=== PATIENT | female | born 1940 | race Caucasian/White ===

== ENCOUNTER 2019-04-30 15:47 | Inpatient (IN) | payer OTHER | END 2019-05-10 19:17 | LOC: JICU 05-01 01:20 → J2W 05-05 16:09 → JER 15:47 → JERBED 19:44 ==

== ENCOUNTER 2019-07-08 21:35 | Inpatient (IN) | payer OTHER ==
--- NOTE | 2019-07-08 21:50 | PDOC ---
History of Present Illness <Ena Conway - Last Filed: 07/09/19 00:51> - History of Present Illness Initial Comments: The pt is a 79F w/ a history of multiple myeloma, HFrEF (30-35), HTN, COPD (2L NC), HLD, a-flutter (eliquis) who presents for evaluation of cough and hypoxia. The pt reports one day of productive cough with development of streaks of blood in her sputum. The cough started yesterday and the blood streaks started today. EMS noted the pt was hypoxic on scene to the 80s on 2L NC. The pt denies fevers/chills, chest pain, trouble breathing, dizziness, N/V/C/D, dysuria, hematuria, or rash. Denies sick contacts. 07/08/19 23:04 <Kike Diane - Last Filed: 07/09/19 01:07> - General Stated Complaint: DIFFICULTY BREATHING Past History <Ena Conway - Last Filed: 07/09/19 00:51> - Past Medical History Anemia: No Asthma: No Cancer: Yes (endometrial cancer) CVA: No COPD: No CHF: No Dementia: No Diabetes: No GI Disorders: No Disorders: No HTN: Yes Hypercholesterolemia: Yes Liver Disease: No Psychiatric Problems: Yes (anxiety, depressive episodes) Seizures: No Thyroid Disease: No - Surgical History Cholecystectomy: Yes - Immunization History Immunization Up to Date: No - Psycho Social/Smoking Cessation Hx Smoking History: Never smoked Have you smoked in the past 12 months: No Hx Alcohol Use: No Drug/Substance Use Hx: No Substance Use Type: None <Kike Diane - Last Filed: 07/09/19 01:07> - Past Medical History Allergies/Adverse Reactions: Allergies Allergy/AdvReac Type Severity Reaction Status Date / Time escitalopram [From Lexapro] Allergy Verified 07/09/19 00:01 Home Medications: Ambulatory Orders Cyanocobalamin [Vitamin B12 -] 1,000 mcg PO DAILY 04/30/19 Metoprolol Tartrate 25 mg PO BID 04/30/19 Mirtazapine 22.5 mg PO DAILY 04/30/19 Omeprazole Magnesium [Prilosec] 20 mg PO DAILY 04/30/19 Sennosides [Senna -] 2 tab PO HS 04/30/19 Simvastatin 10 mg PO DAILY 04/30/19 Albuterol 2.5/Ipratropium 0.5 [Duoneb -] 1 amp NEB RTID amp 05/10/19 Apixaban [Eliquis -] 2.5 mg PO BID tablet 05/10/19 Carvedilol [Coreg -] 6.25 mg PO BID tablet 05/10/19 Calcium Carbonate/Vitamin D3 [Eq Calcium 500 + Vit D 400 Tab] 1 each PO DAILY Cholecalciferol (Vitamin D3) [Vitamin D3 -] 1,000 unit PO DAILY 07/09/19 Docusate Sodium [Docusate 100 mg] 100 mg PO DAILY 07/09/19 Furosemide [Lasix -] 40 mg PO Q2D@1000 07/09/19 Multivitamins [Tab-A-Vit -] 1 tab PO DAILY 07/09/19 Salmeterol Xinafoate [Serevent Diskus] 50 mcg IH BID 07/09/19 Valacyclovir HCl [Valtrex -] 500 mg PO DAILY 07/09/19 Review of Systems - Review of Systems Able to Perform ROS?: Yes Comments:: GENERAL/CONSTITUTIONAL: No fever or chills. No weakness HEAD, EYES, EARS, NOSE AND THROAT: No change in vision. No change in hearing. No sore throat CARDIOVASCULAR: No chest pain or shortness of breath RESPIRATORY: + cough, hemoptysis GASTROINTESTINAL: No nausea, vomiting, diarrhea or constipation GENITOURINARY: No dysuria, frequency, or change in urination MUSCULOSKELETAL: No joint or muscle swelling or pain. No neck or back pain SKIN: No rash NEUROLOGIC: No headache, vertigo, loss of consciousness, or change in strength/ sensation ENDOCRINE: No increased thirst. No abnormal weight change HEMATOLOGIC/LYMPHATIC: +eliquis ALLERGIC/IMMUNOLOGIC: No hives or skin allergy 07/08/19 21:50 Is the patient limited Nepali proficient: No <Kike Diane - Last Filed: 07/09/19 01:07> *Physical Exam - Vital Signs Last Vital Signs Temp Pulse Resp BP Pulse Ox 98.7 F 64 28 H 74/40 L 92 L 07/08/19 21:45 07/08/19 21:45 07/08/19 21:45 07/08/19 21:45 07/08/19 21:45 <Ena Conway - Last Filed: 07/09/19 00:51> - Vital Signs 07/08/19 23:06 - Physical Exam Comments: GENERAL: Awake, alert, and oriented to person/place/time, in no acute distress HEAD: No signs of trauma, normocephalic, atraumatic EYES: PERRLA, EOMI, sclera anicteric, conjunctiva clear ENT: Hearing grossly normal, nares patent, oropharynx clear without exudates. Moist mucosa LUNGS: b/l crackles, decreased breath sounds at bases (R>L) HEART: Regular rate and rhythm, normal S1 and S2, no murmurs appreciated, peripheral pulses normal and equal bilaterally ABDOMEN: Soft, nontender, normoactive bowel sounds. No guarding, no rebound EXTREMITIES: Normal inspection, Normal range of motion, 1+ BLE edema to distal rider NEUROLOGICAL: Cranial nerves II through XII grossly intact. Normal speech, no focal sensorimotor deficits SKIN: Warm, Dry 07/08/19 21:50 <Kike Diane - Last Filed: 07/09/19 01:07> Procedures - Central Line Central Line Lumen: triple Central Line Position: femoral (L) Anesthesia: 1% Lidocaine Amount of anesthesia (ccs): 3 Complications: none Post Central Line Insertion: sutured, good blood return <Ena Conway - Last Filed: 07/09/19 00:51> ED Treatment Course - LABORATORY CBC & Chemistry Diagram: 07/08/19 23:04 07/08/19 23:04 - ADDITIONAL ORDERS Additional order review: Laboratory Results 07/08/19 07/08/19 07/08/19 23:04 23:04 23:04 Sodium Potassium Chloride Carbon Dioxide Anion Gap BUN Creatinine Est GFR (CKD-EPI)AfAm Est GFR (CKD-EPI)NonAf Random Glucose Lactic Acid 0.8 Calcium Magnesium Total Bilirubin AST ALT Alkaline Phosphatase Troponin I Cancelled B-Natriuretic Peptide 3737.4 H Total Protein Albumin 07/08/19 23:04 Sodium 136 Potassium 4.5 Chloride 100 Carbon Dioxide 32 Anion Gap 3 L BUN 25.8 H Creatinine 1.5 H Est GFR (CKD-EPI)AfAm 37.48 Est GFR (CKD-EPI)NonAf 32.34 Random Glucose 111 H Lactic Acid Calcium 7.8 L Magnesium 2.4 Total Bilirubin 1.2 H AST 44 H ALT 24 Alkaline Phosphatase 181 H Troponin I < 0.02 B-Natriuretic Peptide Total Protein 6.5 Albumin 2.0 L 07/08/19 23:04 RBC 2.56 L MCV 109.8 H D MCHC 31.2 L RDW 19.2 H MPV 10.5 D Neutrophils % 70.7 Lymphocytes % 9.1 D Monocytes % 18.1 H Eosinophils % 0.8 D Basophils % 1.3 D - Medications Given in the ED: ED Medications Discontinued Medications Generic Name Dose Route Start Last Admin Trade Name Freq PRN Reason Stop Dose Admin Calcium Gluconate 1,000 mg 07/08/19 22:39 07/08/19 23:36 Calcium Gluconate 10% - IVPB 07/08/19 22:40 Not Given ONCE ONE Piperacillin Sod/Tazobactam 100 mls @ 200 mls/hr 07/08/19 23:03 07/08/19 23: 36 Sod 4.5 gm/ Dextrose IVPB 07/08/19 23:32 200 mls/hr ONCE ONE Administration Protocol Sodium Chloride 250 ml 07/08/19 23:09 07/08/19 23:36 Normal Saline - IV 07/08/19 23:10 250 ml ONCE ONE Administration <Ena Conway - Last Filed: 07/09/19 00:51> - LABORATORY CBC & Chemistry Diagram: 07/08/19 23:04 07/08/19 23:04 <Kike Diane - Last Filed: 07/09/19 01:07> Medical Decision Making - Critical Care Time Total Critical Care Time (minutes): 45 Critical Care Statement: The care of this patient involved high complexity decision making to prevent further life threatening deterioration of the patient 's condition and/or to evaluate & treat vital organ system(s) failure or risk of failure. - Medical Decision Making The pt is a 79F w/ a history of multiple myeloma, HFrEF (30-35), HTN, COPD (2L NC), HLD, on eliquis who presents for evaluation of cough and hypoxia concerning for PNA vs HF exacerbation ED Course Labs sent ECG CXR NS 250mL IV once Vanc/Zosyn for HCAP CXR w/ b/l pulmonary vascular congestion and RLL consolidation vs effusion POCUS w/ b/l b-lines, small R effusion with mild hepatization of RLL 07/08/19 23:07 ECG w/ NSR; HR 64; QTc 425; narrow QRS; no axis deviation; no IRINEO Leukopenia to 2.8, likely partially 2/2 hemodilution given lower Hgb and Plt Lytes unremarkable Lactate neg Cr near baseline LFTs unremarkable Mg wnl Trop I neg BNP 3737 Pt hypotensive to 60s/40s s/p 250cc bolus R femoral CVC placed Norepinephrine started Pt to be admitted to ICU Signed out to [place] Admitting 07/09/19 01:03 <Kike Diane - Last Filed: 07/09/19 01:07> Discharge <Ena Conway - Last Filed: 07/09/19 00:51> - Discharge Information Problems reviewed: Yes - Admission Yes <Kike Diane - Last Filed: 07/09/19 01:07> - Discharge Information Clinical Impression/Diagnosis: Pneumonia Qualifiers: Pneumonia type: due to unspecified organism Laterality: right Lung location: lower lobe of lung Qualified Code(s): J18.9 - Pneumonia, unspecified organism CHF (congestive heart failure) Qualifiers: Heart failure type: unspecified Heart failure chronicity: chronic Qualified Code(s): I50.9 - Heart failure, unspecified Hypotension Qualifiers: Hypotension type: unspecified hypotension type Qualified Code(s): I95.9 - Hypotension, unspecified Condition: Critical
[2019-07-08] MEDS ORDERED: CALCIUM GLUCONATE 10% - 1,000 MG/10 ML VIAL IVPB ONE (22:39)
[2019-07-08] MEDS ORDERED: CALCIUM GLUCONATE 10% - 1,000 MG/10 ML VIAL ONE (22:44)
[2019-07-08] MEDS ORDERED: PIPERACILLIN/TAZOB 4.5 GM 4.5 GM in DEXTROSE 5%-WATER 100 ML IVPB ONE (23:03)
[2019-07-08] MEDS ORDERED: VANCOMYCIN 1,000 MG in DEXTROSE 5%-WATER - 250 ML IVPB ONE (23:03)
[2019-07-08] MEDS ORDERED: SODIUM CHLORIDE 0.9% 500 ML INFUS.BAG IV ONE (23:09)
[2019-07-08] MEDS ORDERED: PIPERACILLIN/TAZOB 4.5 GM 4.5 GM/100 ML BAG IVPB ONE (23:20)
[2019-07-08] MEDS ORDERED: VANCOMYCIN 1 GRAM (PRE-DOCKED) 1,000 MG/250 ML BAG IVPB ONE (23:20)
[2019-07-08 23:29] LABS: BASO % 1.3 % (0-2.0); EOS % 0.8 % (0-4.5); HEMATOCRIT 28.1 % (32.4-45.2); HEMOGLOBIN 8.8 GM/dL (10.7-15.3); LYMPH % 9.1 % (8-40); MCH 34.3 pg (25.7-33.7); MCHC 31.2 g/dl (32.0-36.0); MEAN CELL VOLUME 109.8 fl (80-96); MEAN PLT VOLUME 10.5 fl (7.5-11.1); MONO % 18.1 % (3.8-10.2); NEUT % 70.7 % (42.8-82.8); PLATELET COUNT 101 K/MM3 (134-434); RBC 2.56 M/mm3 (3.60-5.2); RDW 19.2 % (11.6-15.6); WHITE BLOOD COUNT 2.8 K/mm3 (4.0-10.0)
[2019-07-09 00:12] LABS: ALK PHOS 181 U/L (45-117); ANION GAP 3 MMOL/L (8-16); BILIRUBIN,TOTAL 1.2 mg/dL (0.2-1); BLOOD UREA NITROGEN 25.8 mg/dL (7-18); CALCIUM 7.8 mg/dL (8.5-10.1); CHLORIDE 100 mmol/L (98-107); CO2 32 mmol/L (21-32); CREATININE 1.5 mg/dL (0.55-1.3); GLUCOSE,RANDOM 111 mg/dL (74-106); MAGNESIUM 2.4 mg/dL (1.8-2.4); POTASSIUM 4.5 mmol/L (3.5-5.1); SGOT/AST 44 U/L (15-37); SGPT/ALT 24 U/L (13-61); SODIUM 136 mmol/L (136-145); TOT PROT 6.5 g/dl (6.4-8.2)
[2019-07-09 00:45] LABS: ANISOCYTOSIS 1+; MACROCYTOSIS 1+; PLATELET ESTIMATE SLT DECREASE
--- NOTE | 2019-07-09 01:05 | PN ---
Teaching Attending Note Name of Resident: Petra Celaya ATTENDING PHYSICIAN STATEMENT I saw and evaluated the patient. I reviewed the resident's note and discussed the case with the resident. I agree with the resident's findings and plan as documented. SUBJECTIVE: Critically ill 79yo Woman w/ a history of multiple myeloma-Last chemotherapy treatment was reported to be 07/01., chf, HTN, COPD (2L NC), HLD, a-flutter ( eliquis) Presented complaining of cough and shortness of breath. She had 1 day of productive cough and noted to have development of streaks of blood in her sputum. Patient was brought in by EMS, who noticed that she was hypoxic at the scene saturating in the 80s on 2 L nasal cannula. No mention of sick contacts or recent travels. In the ER patient was noted to be hypotensive and central line was placed and started on norepinephrine in anticipation to be transferred to ICU. OBJECTIVE: Last Vital Signs Temp Pulse Resp BP Pulse Ox 98.7 F 64 28 H 74/40 L 92 L 07/08/19 21:45 07/08/19 21:45 07/08/19 21:45 07/08/19 21:45 07/08/19 21:45 GENERAL: Well developed, well nourished. Awake and alert. No acute distress. HEENT: Normocephalic, atraumatic. PERRLA, EOMI. No conjunctival pallor. Sclera are non- icteric. Moist mucous membranes. Oropharynx is clear. NECK: Supple. Full ROM. No JVD. Carotid pulses 2+ and symmetric, without bruits. No thyromegaly. No lymphadenopathy. CARDIOVASCULAR: Regular rate and rhythm. No murmurs, rubs, or gallops. Distal pulses are 2+ and symmetric. PULMONARY: Left base crackles appreciated, Bilateral air entry ABDOMINAL: Soft. Non-tender. Non-distended. No rebound or guarding. No organomegaly. Normoactive bowel sounds. MUSCULOSKELETAL Normal range of motion at all joints. No bony deformities or tenderness. No CVA tenderness. EXTREMITIES: No cyanosis. No clubbing. No edema. No calf tenderness. SKIN: Warm and dry. Normal capillary refill. No rashes. No jaundice. PSYCHIATRIC: Cooperative. Good eye contact. Appropriate mood and affect. Abnormal Lab Results 07/08/19 07/08/19 07/08/19 23:04 23:04 23:04 WBC 2.8 L RBC 2.56 L Hgb 8.8 L Hct 28.1 L MCV 109.8 H D MCH 34.3 H MCHC 31.2 L RDW 19.2 H Plt Count 101 L D Monocytes % 18.1 H Nucleated RBC % 1 H Anion Gap 3 L BUN 25.8 H Creatinine 1.5 H Random Glucose 111 H Calcium 7.8 L Total Bilirubin 1.2 H AST 44 H Alkaline Phosphatase 181 H B-Natriuretic Peptide 3737.4 H Albumin 2.0 L Imaging studies reviewed Chest x-ray reviewed ASSESSMENT AND PLAN: Severe Sepsis secondary to community-acquired pneumonia Requiring IV pressor support With respiratory failure. Lactate remained normal. Respiratory failure and hypotension suggestive of severe disease however as per patient's lead front end developer , her pressure has always been on the low side ever since she was prescribed carvedilol and Entresto on her prior admission. #Multiple myeloma #Pancytopenia with profound leukopenia, microcytic anemia and thrombocytopenia. Leukopenia and thrombocytopenia are noted to be new findings. Unclear etiology , might be secondary to her underlying multiple myeloma versus acute sepsis resulting in drop in cell counts #CKDthought to be stable at this time. Thought to be possibly related to underlying multiple myeloma #Hypoalbuminemia Admit to MedSurg Ceftriaxone 1 g every 24 hours Zithromax 500 mg IV every 24 hours Maintained on norepinephrine at this time Attempt to wean off of norepinephrine Avoid antihypertensive agents at this time Would consider to revise her Antihypertensive medications prior to discharge given her current hypotension Sputum culture Blood culture Urine Legionella antigen Supplemental oxygen via nasal cannula Send UA and urine culture Arterial blood gas if desaturating Abdominal ultrasound to assess for splenomegaly and acute hepatobiliary process Monitor CBC closely Cardiac echo Monitor I's and O's Fluid restriction
--- NOTE | 2019-07-09 01:57 | CONSULT ---
Consult Consult Specialty:: ICU - History of Present Illness History of Present Illness: 79F with a PMH of multiple myeloma, HFrEF (30-35), HTN, COPD (2L NC), HLD, a- flutter (eliquis) who presented to the ER after her aide noticed she had slightly increased WOB. Pt states that she feels in her normal state of health and denies fever, chills, nausea, vomiting, CP, SOB, numbness, tingling, weakness, lightheadedness, and palpitations. ED Course notable for: - CXR showing R sided infiltrate with effusino - POCUS showing B-lines in R lobe and hepatization - BP's 70's/50's - Increased demand for NC O2 - History Source History Provided By: Patient, Caregiver - Past Medical History Cardio/Vascular: Yes: HTN, Hyperlipdemia Pulmonary: Yes: COPD Renal/: Yes: Cancer (Multiple myoloma) Psych: Yes: Anxiety - Past Surgical History Past Surgical History: Yes: Cholecystectomy, Hysterectomy - Alcohol/Substance Use Hx Alcohol Use: No History of Substance Use: reports: None - Smoking History Smoking history: Never smoked Have you smoked in the past 12 months: No - Social History 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 her) Home Medications - Allergies Allergies/Adverse Reactions: Allergies Allergy/AdvReac Type Severity Reaction Status Date / Time escitalopram [From Lexapro] Allergy Verified 07/09/19 00:01 - Home Medications Home Medications: Ambulatory Orders Cyanocobalamin [Vitamin B12 -] 1,000 mcg PO DAILY 04/30/19 Metoprolol Tartrate 25 mg PO BID 04/30/19 Mirtazapine 22.5 mg PO DAILY 04/30/19 Omeprazole Magnesium [Prilosec] 20 mg PO DAILY 04/30/19 Sennosides [Senna -] 2 tab PO HS 04/30/19 Simvastatin 10 mg PO DAILY 04/30/19 Albuterol 2.5/Ipratropium 0.5 [Duoneb -] 1 amp NEB RTID amp 05/10/19 Apixaban [Eliquis -] 2.5 mg PO BID tablet 05/10/19 Carvedilol [Coreg -] 6.25 mg PO BID tablet 05/10/19 Calcium Carbonate/Vitamin D3 [Eq Calcium 500 + Vit D 400 Tab] 1 each PO DAILY Cholecalciferol (Vitamin D3) [Vitamin D3 -] 1,000 unit PO DAILY 07/09/19 Docusate Sodium [Docusate 100 mg] 100 mg PO DAILY 07/09/19 Furosemide [Lasix -] 40 mg PO Q2D@1000 07/09/19 Multivitamins [Tab-A-Vit -] 1 tab PO DAILY 07/09/19 Salmeterol Xinafoate [Serevent Diskus] 50 mcg IH BID 07/09/19 Valacyclovir HCl [Valtrex -] 500 mg PO DAILY 07/09/19 Review of Systems - Review of Systems Constitutional: denies: Chills, Fever, Loss of Appetite Eyes: denies: Blurred Vision, Double Vision HENT: denies: Nasal Congestion, Throat Pain Cardiovascular: denies: Chest Pain, Edema, Shortness of Breath Respiratory: denies: Cough, Exercise Intolerance, SOB Gastrointestinal: denies: Abdominal Pain, Nausea, Vomiting Genitourinary: denies: Burning, Dysuria Musculoskeletal: denies: Back Pain Neurological: denies: Headache, Numbness, Weakness Physical Exam Vital Signs: Vital Signs Temperature 98.7 F 07/08/19 21:45 Pulse Rate 60 07/09/19 01:26 Respiratory Rate 23 H 07/09/19 01:26 Blood Pressure 77/45 L 07/09/19 01:26 O2 Sat by Pulse Oximetry (%) 92 L 07/09/19 01:26 Constitutional: Yes: Well Nourished, No Distress, Calm. No: Anxious, Severe Distress Eyes: Yes: Conjunctiva Clear HENT: Yes: Atraumatic, Normocephalic Cardiovascular: Yes: Regular Rate and Rhythm, S1, S2. No: Bradycardia, Tachycardia Respiratory: Yes: Diminished (in RLL), Rhonchi (in LLL). No: Stridor, Wheezes Gastrointestinal: Yes: Soft, Abdomen, Obese. No: Tenderness, Tenderness, Epigastrium, Tenderness, Rebound ...Rectal Exam: Yes: Deferred Renal/: No: CVA Tenderness - Left, CVA Tenderness - Right Musculoskeletal: Yes: WNL Extremities: No: Cold, Cool Edema: No Neurological: Yes: Alert, Oriented ...Motor Strength: WNL Labs: CBC, BMP 11/14/19 23:04 07/08/19 23:04 Assessment/Plan 79F with a PMH of multiple myeloma, HFrEF (30-35), HTN, COPD (2L NC), HLD, a- flutter (eliquis) who presents to the ER with notable hypoxia and hypotension with source concerning for sepsis 2/2 PNA. ID Septic shock - CXR showing RLL infiltrate with effusion - New hypoxia requiring increased NC O2 (baseline 2L at home) - Tachypnea resolving - Volume overloaded on POCUS, received 500cc's of NS and had no improvement of BP - Since pt is DNR/DNI, will be cautious with hydration to prevent pulmonary edema - Start levophed for pressure of 70's/40's - Vanc/zosyn given in ER - WBC 2.8, contributing to septic picture; however w/o left shift Cards H/o HFrEF (30-35%) - Judicious fluid resuscitation in setting of DNR/DNI - Monitor HR and rhythm - Continue eliquis - Levophed 5 in R femoral TLC - Hold anti-HTN meds as pt is hypotensive - BNP 3737 - Initial trop negative Pulm PNA - CXR showing PNA - Increased O2 demand - Continue nasal cannula - Reassess if increased WOB (for bipap vs HFO2) Heme/Onc Multiple myeloma - Would appreciate oncology recs - Hgb 8.8 from 10.3, pending FOBT GI - NPO until speech/swallow eval - T. bili elevated, unknown etiology - Would appreciate GI recs Renal Mild ARABELLA - BUN/Cr 25.8/1.5, slightly worsened since last visit Dispo - Will monitor patient in ICU
[2019-07-09 02:06] LABS: EPI CELLS 2.5 /HPF (0-5/HPF); HYALINE CASTS 17 /lpf (0-8); URINE APPEARANCE CLOUDY; URINE BACTERIA 3.1 /hpf (NEGATIVE); URINE BILIRUBIN 1+ (NEGATIVE); URINE COLOR DK YELLOW; URINE GLUCOSE (UA) NEGATIVE (NEGATIVE); URINE KETONE NEGATIVE (NEGATIVE); URINE LEUK ESTERASE TRACE (NEGATIVE); URINE NITRITE NEGATIVE (NEGATIVE); URINE PROTEIN 1+ (NEGATIVE); URINE WBC 2 /hpf (0-5)
[2019-07-09] MEDS: NOREPINEPHRINE BITARTRATE 8,000 MCG in DEXTROSE 5%-WATER - 492 ML IV SCH ×2 (02:08→12:29)
--- NOTE | 2019-07-09 02:36 | HP ---
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 Pt was in bed when the aid noticed that she was SOB and hypoxic saturating at 83 % O2 2L nasal cannula and decided to call EMS. Patient was brought in by EMS who also noticed that she was also hypoxic in the 80s on 2L NC. Pt also reports one day history of cough with productive sputum production. The sputum is thick , green and blood tinged without any associated foul smell. Pt denies any recent travel or sick contacts. Denies any change in mentation, lightheadedness , fever, chills, chest pain, MORLEY, wheezing, palpitations, nausea, vomiting, diarrhea, changes in bowel movement and urination, weakness/numbness. Pt is currently receiving treatment for her multiple myeloma with last treatment on friday. Ambulates using a walker at [facility] . ER course was notable for: (1) CBC with pancytopenia, cmp with BUN 25.8, Cr 1.5, BG 111, calcium 7.8, tbil 1.2 , AST 44, ALP 181, BNP 3737.4, albumin 2.0 (2) CXR suggestive of PNA (3) Vanc and zosyn, NS bolus 250, norepinephrine for pressure support Recent Travel: none PAST MEDICAL HISTORY: as above PAST SURGICAL HISTORY: hysterectomy, cholecystectomy, tonsillectomy FAMILY HX: none Social History: Smoking:denies Alcohol: denies Drugs: denies Allergies escitalopram [From Lexapro] Allergy (Verified 07/09/19 00:01) HOME MEDICATIONS: Home Medications Medication Instructions Recorded Cyanocobalamin [Vitamin B12 -] 1,000 mcg PO DAILY 04/30/19 Metoprolol Tartrate 25 mg PO BID 04/30/19 Mirtazapine 22.5 mg PO DAILY 04/30/19 Omeprazole Magnesium [Prilosec] 20 mg PO DAILY 04/30/19 Sennosides [Senna -] 2 tab PO HS 04/30/19 Simvastatin 10 mg PO DAILY 04/30/19 Albuterol 2.5/Ipratropium 0.5 1 amp NEB RTID amp 05/10/19 [Duoneb -] Apixaban [Eliquis -] 2.5 mg PO BID tablet 05/10/19 Carvedilol [Coreg -] 6.25 mg PO BID tablet 05/10/19 Calcium Carbonate/Vitamin D3 [Eq 1 each PO DAILY 07/09/19 Calcium 500 + Vit D 400 Tab] Cholecalciferol (Vitamin D3) 1,000 unit PO DAILY 07/09/19 [Vitamin D3 -] Docusate Sodium [Docusate 100 mg] 100 mg PO DAILY 07/09/19 Furosemide [Lasix -] 40 mg PO Q2D@1000 07/09/19 Multivitamins [Tab-A-Vit -] 1 tab PO DAILY 07/09/19 Salmeterol Xinafoate [Serevent 50 mcg IH BID 07/09/19 Diskus] Valacyclovir HCl [Valtrex -] 500 mg PO DAILY 07/09/19 REVIEW OF SYSTEMS CONSTITUTIONAL: Absent: fever, chills, diaphoresis, generalized weakness, malaise, loss of appetite, weight change HEENT: Absent: rhinorrhea, nasal congestion, throat pain, throat swelling, difficulty swallowing, mouth swelling, ear pain, eye pain, visual changes CARDIOVASCULAR: Absent: chest pain, syncope, palpitations, irregular heart rate, lightheadedness , peripheral edema RESPIRATORY: cough, shortness of breath Absent: dyspnea with exertion, orthopnea, wheezing, stridor, hemoptysis GASTROINTESTINAL: Absent: abdominal pain, abdominal distension, nausea, vomiting, diarrhea, constipation, melena, hematochezia GENITOURINARY: Absent: dysuria, frequency, urgency, hesitancy, hematuria, flank pain, genital pain MUSCULOSKELETAL: Absent: myalgia, arthralgia, joint swelling, back pain, neck pain SKIN: Absent: rash, itching, pallor HEMATOLOGIC/IMMUNOLOGIC: Absent: easy bleeding, easy bruising, lymphadenopathy, frequent infections ENDOCRINE: Absent: unexplained weight gain, unexplained weight loss, heat intolerance, cold intolerance NEUROLOGIC: Absent: headache, focal weakness or paresthesias, dizziness, unsteady gait, seizure, mental status changes, bladder or bowel incontinence PSYCHIATRIC: Absent: anxiety, depression, suicidal or homicidal ideation, hallucinations. PHYSICAL EXAMINATION Vital Signs - 24 hr 07/08/19 07/09/19 07/09/19 21:45 01:26 02:08 Temperature 98.7 F Pulse Rate 64 61 Pulse Rate [ 60 Right Radial] Respiratory 28 H 23 H Rate Blood Pressure 74/40 L 82/47 L Blood Pressure 77/45 L [Left Arm] O2 Sat by Pulse 92 L 92 L Oximetry (%) GENERAL: Awake, alert, and fully oriented, in no acute distress. HEAD: Normal with no signs of trauma. EYES: Pupils equal, round and reactive to light, extraocular movements intact, sclera anicteric, conjunctiva clear. No lid lag. EARS, NOSE, THROAT: oropharynx clear without exudates. Moist mucous membranes. NECK: Normal range of motion, supple without lymphadenopathy, JVD, or masses. LUNGS: Breath sounds equal, clear to auscultation bilaterally reduced in the lower lung ruby. mod crackles . No accessory muscle use. HEART: Regular rate and rhythm, normal S1 and S2 without murmur, rub or gallop. ABDOMEN: Soft, nontender, not distended, normoactive bowel sounds, no guarding, no rebound, no masses. No hepatomegaly or splenomegaly. MUSCULOSKELETAL: Normal range of motion at all joints. No bony deformities or tenderness. No CVA tenderness. UPPER EXTREMITIES: 2+ pulses, warm, well-perfused. No cyanosis. No clubbing. No peripheral edema. LOWER EXTREMITIES: 2+ pulses, warm, well-perfused. No calf tenderness. 1+ peripheral edema. NEUROLOGICAL: Cranial nerves II-XII intact. Normal speech. motor strength 5/5 , sensation intact PSYCHIATRIC: Cooperative. Good eye contact. Appropriate mood and affect. SKIN: Warm, dry, normal turgor Laboratory Results - last 24 hr 07/08/19 07/08/19 07/08/19 23:04 23:04 23:04 WBC 2.8 L RBC 2.56 L Hgb 8.8 L Hct 28.1 L MCV 109.8 H D MCH 34.3 H MCHC 31.2 L RDW 19.2 H Plt Count 101 L D MPV 10.5 D Absolute Neuts (auto) 2.0 Total Counted 100 Neutrophils % 70.7 Neutrophils % (Manual) 68.0 Band Neutrophils % 5.0 Lymphocytes % 9.1 D Lymphocytes % (Manual) 17.0 D Monocytes % 18.1 H Monocytes % (Manual) 9 Eosinophils % 0.8 D Basophils % 1.3 D Nucleated RBC % 1 H Hypochromia 1+ Platelet Estimate Slt decrease Anisocytosis 1+ Macrocytosis 1+ Sodium 136 Potassium 4.5 Chloride 100 Carbon Dioxide 32 Anion Gap 3 L BUN 25.8 H Creatinine 1.5 H Est GFR (CKD-EPI)AfAm 37.48 Est GFR (CKD-EPI)NonAf 32.34 Random Glucose 111 H Lactic Acid Calcium 7.8 L Magnesium 2.4 Total Bilirubin 1.2 H AST 44 H ALT 24 Alkaline Phosphatase 181 H Troponin I < 0.02 B-Natriuretic Peptide 3737.4 H Total Protein 6.5 Albumin 2.0 L Urine Color Urine Appearance Urine pH Ur Specific [place] Urine Protein Urine Glucose (UA) Urine Ketones Urine Blood Urine Nitrite Urine Bilirubin Urine Urobilinogen Ur Leukocyte Esterase Urine WBC (Auto) Urine Casts (Auto) U Epithel Cells (Auto) Urine Bacteria (Auto) 07/08/19 07/08/19 07/09/19 23:04 23:04 01:50 WBC RBC Hgb Hct MCV MCH MCHC RDW Plt Count MPV Absolute Neuts (auto) Total Counted Neutrophils % Neutrophils % (Manual) Band Neutrophils % Lymphocytes % Lymphocytes % (Manual) Monocytes % Monocytes % (Manual) Eosinophils % Basophils % Nucleated RBC % Hypochromia Platelet Estimate Anisocytosis Macrocytosis Sodium Potassium Chloride Carbon Dioxide Anion Gap BUN Creatinine Est GFR (CKD-EPI)AfAm Est GFR (CKD-EPI)NonAf Random Glucose Lactic Acid 0.8 Calcium Magnesium Total Bilirubin AST ALT Alkaline Phosphatase Troponin I Cancelled B-Natriuretic Peptide Total Protein Albumin Urine Color Dk yellow Urine Appearance Cloudy Urine pH 5.0 Ur Specific [place] 1.022 Urine Protein 1+ H Urine Glucose (UA) Negative Urine Ketones Negative Urine Blood 3+ H Urine Nitrite Negative Urine Bilirubin 1+ H Urine Urobilinogen 1.0 Ur Leukocyte Esterase Trace Urine WBC (Auto) 2 Urine Casts (Auto) 17 U Epithel Cells (Auto) 2.5 Urine Bacteria (Auto) 3.1 ASSESSMENT/PLAN: 79 year old female with past medical history of HFrEF (30-35%), COPD (2L NC), a- flutter (on Eliquis 2.5mg BID), multiple myeloma, endometrial cancer (s/p hysterectomy) presents to the ED for shortness of breath and productive cough. admitted for sepsis 2/2 CAP with respiratory failure requiring IV pressor support Sepsis 2/2 CAP with respiratory failure requiring IV pressor support Admitted to ICU However afebrile. hypotensive in the 80s (one episode in the 60s in the ED), HR 61 (pt took her BBs), RR 23. Pancytopenic (Multiple myeloma contributing as well ) with worsening leukopenia at 2.8 (poss from sepsis). O2 sat on admission in the 80 currently 92 on 2L. Pt appears non toxic, very pleasant. BP continues to trend in the 70s-80s despite pressors. Possibly her baseline? monitor if remain stable and around those numbers as BBs wear off, wean off pressors CXR as above Ceftriaxone 1 g daily Zithromax 500 mg IV daily norepinephrine for pressure support Sputum culture Blood culture urine culture Urine Legionella antigen cont supplemental O2 Arterial blood gas if worsening hypoxia Abnormal LFTs abdominal US for splenomegaly or liver/biliary process f/u labs ARABELLA BUN/Cr 28.5/1.5 most likely from sepsis monitor NS @ HFrEF (30-35%) BNP 3737.4 fluid restriction pt received small bolus of 250 NS in ED Monitor I's and O's echo for cardiac assessment Multiple Myeloma pancytopenic Monitor CBC pt on revlimid for 21 days off for 7 Velcade injection once a week (last injection on 07/01) due for 07/12 due to schedule change A flutter controlled for now eliquis HTN holding meds in the setting of hypotension COPD On 2L NC home inhalers resumed DVT already on eliquis DNR/DNI Visit type - Emergency Visit Emergency Visit: Yes ED Registration Date: 07/08/19 Care time: The patient presented to the Emergency Department on the above date and was hospitalized for further evaluation of their emergent condition. - New Patient This patient is new to me today: Yes Date on this admission: 07/09/19 - Critical Care Critical Care patient: Yes Total Critical Care Time (in minutes): 30 Critical Care Statement: The care of this patient involved high complexity decision making to prevent further life threatening deterioration of the patient 's condition and/or to evaluate & treat vital organ system(s) failure or risk of failure. ATTENDING PHYSICIAN STATEMENT I saw and evaluated the patient. I reviewed the resident's note and discussed the case with the resident. I agree with the resident's findings and plan as documented. SUBJECTIVE: OBJECTIVE: ASSESSMENT AND PLAN:
--- NOTE | 2019-07-09 02:42 | PDOC ---
Attending Attestation - Resident Resident Name: Kike Diane - ED Attending Attestation I have performed the following: I have examined & evaluated the patient, The case was reviewed & discussed with the resident, I agree w/resident's findings & plan, Exceptions are as noted - HPI HPI: 07/09/19 02:41 79F pmh HTN, HLD, COPD, Aflutter on eliquis, MM, CHF here with productive cough worsening sob, found to be hypoxic and hypotense in the field. Recent admission to [facility]. - Physicial Exam PE: 07/09/19 02:42 Agree with exam as documented by resident - Medical Decision Making 07/09/19 02:51 Concern for sepsis 2/2 pna f/u labs, imaging close monitoring VS persistent hypotension, CVC placed, started on pressors imaging, cxr and pocus consistent with fluid and consolidation not mounting lactate start vanc/zosyn, gentle hydration admit crit care eval
[2019-07-09 06:30] LABS: BASO % 0.1 % (0-2.0); EOS % 1.1 % (0-4.5); HEMATOCRIT 28.5 % (32.4-45.2); LYMPH % 6.8 % (8-40); MCH 34.6 pg (25.7-33.7); MCHC 31.7 g/dl (32.0-36.0); MEAN CELL VOLUME 109.1 fl (80-96); MEAN PLT VOLUME 10.2 fl (7.5-11.1); PLATELET COUNT 109 K/MM3 (134-434); RBC 2.61 M/mm3 (3.60-5.2); RDW 19.3 % (11.6-15.6); WHITE BLOOD COUNT 3.5 K/mm3 (4.0-10.0)
[2019-07-09 06:52] LABS: BLOOD UREA NITROGEN 28.9 mg/dL (7-18); CREATININE 1.6 mg/dL (0.55-1.3)
[2019-07-09 06:53] LABS: BILIRUBIN,TOTAL 1.4 mg/dL (0.2-1); CALCIUM 7.6 mg/dL (8.5-10.1); MAGNESIUM 2.4 mg/dL (1.8-2.4); PHOSPHOROUS 3.6 mg/dL (2.5-4.9); TOT PROT 6.6 g/dl (6.4-8.2)
[2019-07-09] MEDS: ALBUTEROL SO4 2.5/IPRATROPIUM 0.5 INH SOL 3 ML VIAL.NEB. NEB SCH ×3 (07:35→21:34)
[2019-07-09] MEDS ORDERED: cefTRIAXone SODIUM 1 GM VIAL ONE (09:53)
[2019-07-09] MEDS ORDERED: DEXTROSE 5%-WATER - 50 ML IVPB ONE (09:53)
[2019-07-09] MEDS ORDERED: CARVEDILOL 3.125 MG TABLET (FP) PO SCH (10:00)
[2019-07-09] MEDS ORDERED: MIRTAZAPINE 22.5 MG PO SCH (10:00)
[2019-07-09] MEDS: SODIUM CHLORIDE 1,000 ML IV SCH ×2 (10:10→22:00)
[2019-07-09] MEDS: CEFTRIAXONE 1 GM in DEXTROSE 5%-WATER - 50 ML IVPB SCH (10:13)
[2019-07-09] MEDS: AZITHROMYCIN IVPB 500 MG/250 ML BAG IVPB SCH (10:18)
[2019-07-09] MEDS: APIXABAN 2.5 MG TABLET PO SCH ×2 (10:21→21:12)
[2019-07-09 10:22] LABS: ANISOCYTOSIS 1+; MACROCYTOSIS 1+; PLATELET ESTIMATE DECREASED
[2019-07-09] MEDS: valACYclovir HCL 500 MG TABLET (FP) PO SCH (10:22)
[2019-07-09] MEDS: CALCIUM 500MG/VIT-D 200 UNITS COMBO TABLET (FP) PO SCH (10:22)
[2019-07-09] MEDS: MUPIROCIN 2% TOPICAL OINTMENT FOR DECOLONIZATION NS SCH ×2 (10:22→21:15)
[2019-07-09] MEDS: CYANOCOBALAMIN 1,000 MCG TABLET (FP) PO SCH (10:23)
[2019-07-09] MEDS: CHOLECALCIFEROL (VIT D3) 1,000 UNIT (25 MCG) TABLET PO SCH (10:23)
--- NOTE | 2019-07-09 10:40 | PN ---
Teaching Attending Note Name of Resident: Rey Alvares ATTENDING PHYSICIAN STATEMENT I saw and evaluated the patient. I reviewed the resident's note and discussed the case with the resident. I agree with the resident's findings and plan as documented. SUBJECTIVE: Patient seen and examined in the ICU. Awake and alert on NC O2. 20meq NE for hemodynamic support. Some discomfort at the central line site. (+) congested cough and increased WOB. No CP. Intake & Output 07/06/19 07/07/19 07/08/19 07/09/19 23:59 23:59 23:59 23:59 Weight 130 lb 11.746 oz Last Vital Signs Temp Pulse Resp BP Pulse Ox 97.6 F 63 21 H 100/46 L 92 L 07/09/19 03:27 07/09/19 09:00 07/09/19 07:00 07/09/19 09:00 07/09/19 03:27 Active Medications Albuterol/Ipratropium (Duoneb -) 1 amp NEB RTID [facility] Apixaban (Eliquis -) 2.5 mg PO BID [facility] Last Admin: 07/09/19 10:21 Dose: 2.5 mg Atorvastatin Calcium (Lipitor -) 10 mg PO HS [facility] Calcium Carbonate/Cholecalciferol (Os-Khai 500+D -) 1 tab PO DAILY [facility] Last Admin: 07/09/19 10:22 Dose: 1 tab Chlorhexidine Gluconate (Hibiclens For Decolonization -) 1 applic TP HS [facility] Cholecalciferol (Vitamin D3 -) 1,000 unit PO DAILY [facility] Last Admin: 07/09/19 10:23 Dose: 1,000 unit Cyanocobalamin (Vitamin B12 -) 1,000 mcg PO DAILY [facility] Last Admin: 07/09/19 10:23 Dose: 1,000 mcg Norepinephrine Bitartrate 8, (000 mcg/ Dextrose) 500 mls @ 18.75 mls/hr IV TITR [facility]; Protocol Last Titration: 07/09/19 09:00 Dose: 20 mcg/min, 75 mls/hr Azithromycin (Zithromax 500mg Ivpb (Pre-Docked)) 500 mg in 250 mls @ 250 mls/ hr IVPB DAILY [facility] Last Admin: 07/09/19 10:18 Dose: 250 mls/hr Ceftriaxone Sodium 1 gm/ (Dextrose) 50 mls @ 100 mls/hr IVPB DAILY [facility]; Protocol Last Admin: 07/09/19 10:13 Dose: 100 mls/hr Sodium Chloride (Normal Saline -) 1,000 mls @ 75 mls/hr IV ASDIR [facility] Last Admin: 07/09/19 10:10 Dose: 75 mls/hr Mirtazapine (Remeron -) 15 mg PO HS [facility] Mirtazapine (Remeron -) 7.5 mg PO HS [facility] Mupirocin (Bactroban Ointment (For Decolonization) -) 1 applic NS BID [facility] Stop: 07/14/19 09:59 Last Admin: 07/09/19 10:22 Dose: 1 applic Valacyclovir HCl (Valtrex -) 500 mg PO DAILY [facility] Last Admin: 07/09/19 10:22 Dose: 500 mg Constitutional: Yes: Awake and alert Eyes: Yes: Conjunctiva Clear HENT: Yes: Atraumatic, Normocephalic Cardiovascular: Yes: Regular Rate and Rhythm, S1, S2. No: Bradycardia, Tachycardia Respiratory: Yes: Diminished (in RLL), Rhonchi (in LLL). No: Stridor, Wheezes Gastrointestinal: Yes: Soft, Abdomen, Obese. No: Tenderness, Tenderness, Epigastrium, Tenderness, Rebound ...Rectal Exam: Yes: Deferred Renal/: No: CVA Tenderness - Left, CVA Tenderness - Right Musculoskeletal: Yes: WNL Extremities: No: Cold, Cool Edema: No Neurological: Yes: Alert, Oriented ...Motor Strength: WNL Labs: Laboratory Results - last 24 hr 07/08/19 07/08/19 07/08/19 23:04 23:04 23:04 WBC 2.8 L RBC 2.56 L Hgb 8.8 L Hct 28.1 L MCV 109.8 H D MCH 34.3 H MCHC 31.2 L RDW 19.2 H Plt Count 101 L D MPV 10.5 D Absolute Neuts (auto) 2.0 Total Counted 100 Neutrophils % 70.7 Neutrophils % (Manual) 68.0 Band Neutrophils % 5.0 Lymphocytes % 9.1 D Lymphocytes % (Manual) 17.0 D Monocytes % 18.1 H Monocytes % (Manual) 9 Eosinophils % 0.8 D Basophils % 1.3 D Nucleated RBC % 1 H Hypochromia 1+ Platelet Estimate Slt decrease Anisocytosis 1+ Macrocytosis 1+ Sodium 136 Potassium 4.5 Chloride 100 Carbon Dioxide 32 Anion Gap 3 L BUN 25.8 H Creatinine 1.5 H Est GFR (CKD-EPI)AfAm 37.48 Est GFR (CKD-EPI)NonAf 32.34 Random Glucose 111 H Lactic Acid Calcium 7.8 L Phosphorus Magnesium 2.4 Total Bilirubin 1.2 H AST 44 H ALT 24 Alkaline Phosphatase 181 H Troponin I < 0.02 B-Natriuretic Peptide 3737.4 H Total Protein 6.5 Albumin 2.0 L Urine Color Urine Appearance Urine pH Ur Specific [place] Urine Protein Urine Glucose (UA) Urine Ketones Urine Blood Urine Nitrite Urine Bilirubin Urine Urobilinogen Ur Leukocyte Esterase Urine WBC (Auto) Urine RBC (Auto) Urine Casts (Auto) U Pathogenic Cast Auto U Epithel Cells (Auto) Urine Bacteria (Auto) 07/08/19 07/08/19 07/09/19 23:04 23:04 01:50 WBC RBC Hgb Hct MCV MCH MCHC RDW Plt Count MPV Absolute Neuts (auto) Total Counted Neutrophils % Neutrophils % (Manual) Band Neutrophils % Lymphocytes % Lymphocytes % (Manual) Monocytes % Monocytes % (Manual) Eosinophils % Basophils % Nucleated RBC % Hypochromia Platelet Estimate Anisocytosis Macrocytosis Sodium Potassium Chloride Carbon Dioxide Anion Gap BUN Creatinine Est GFR (CKD-EPI)AfAm Est GFR (CKD-EPI)NonAf Random Glucose Lactic Acid 0.8 Calcium Phosphorus Magnesium Total Bilirubin AST ALT Alkaline Phosphatase Troponin I Cancelled B-Natriuretic Peptide Total Protein Albumin Urine Color Dk yellow Urine Appearance Cloudy Urine pH 5.0 Ur Specific [place] 1.022 Urine Protein 1+ H Urine Glucose (UA) Negative Urine Ketones Negative Urine Blood 3+ H Urine Nitrite Negative Urine Bilirubin 1+ H Urine Urobilinogen 1.0 Ur Leukocyte Esterase Trace Urine WBC (Auto) 2 Urine RBC (Auto) 5.0 Urine Casts (Auto) 17 U Pathogenic Cast Auto None seen U Epithel Cells (Auto) 2.5 Urine Bacteria (Auto) 3.1 07/09/19 07/09/19 06:00 06:05 WBC 3.5 L RBC 2.61 L Hgb 9.0 L Hct 28.5 L MCV 109.1 H MCH 34.6 H MCHC 31.7 L RDW 19.3 H Plt Count 109 L MPV 10.2 Absolute Neuts (auto) 2.4 Total Counted Neutrophils % 69.0 Neutrophils % (Manual) Band Neutrophils % Lymphocytes % 6.8 L D Lymphocytes % (Manual) Monocytes % 23.0 H Monocytes % (Manual) Eosinophils % 1.1 Basophils % 0.1 Nucleated RBC % 0 Hypochromia Platelet Estimate Anisocytosis Macrocytosis Sodium 136 Potassium 4.0 Chloride 99 Carbon Dioxide 33 H Anion Gap 4 L BUN 28.9 H Creatinine 1.6 H Est GFR (CKD-EPI)AfAm 34.66 Est GFR (CKD-EPI)NonAf 29.91 Random Glucose 117 H Lactic Acid Calcium 7.6 L Phosphorus 3.6 Magnesium 2.4 Total Bilirubin 1.4 H AST 21 ALT 22 Alkaline Phosphatase 179 H Troponin I B-Natriuretic Peptide Total Protein 6.6 Albumin 2.0 L Urine Color Urine Appearance Urine pH Ur Specific [place] Urine Protein Urine Glucose (UA) Urine Ketones Urine Blood Urine Nitrite Urine Bilirubin Urine Urobilinogen Ur Leukocyte Esterase Urine WBC (Auto) Urine RBC (Auto) Urine Casts (Auto) U Pathogenic Cast Auto U Epithel Cells (Auto) Urine Bacteria (Auto) Assessment/Plan Septic Shock possibly due to PNA Multiple myeloma HFrEF (30-35%) HTN COPD (2L NC) HLD A-flutter (eliquis) ABX per ID O2 as needed Increase fluid resuscitation Strict I & O Wean pressors: add second agent for NE > 15meq Follow cultures Follow CXR Check ECHO Hold anti-HTN meds Oncology evaluation Requires ICU monitoring for pressors PO as tolerated Dr Guzman Critical care time spent in reviewing chart, evaluating patient and formulating plan - 36 minutes.
--- NOTE | 2019-07-09 10:53 | ECHO ---
Name: YUDITH SOLORZANO Exam:Adult Echocardiogram Study Date: 07/09/2019 08:55 AM Age: 79 yrs Reason For Study: LV Function Height: 62 in Weight: 132 lb BSA: 1.6 m2 MMode/2D Measurements & Calculations IVSd: 0.97 cm Ao root diam: 3.2 cm LVIDd: 5.1 cm LA dimension: 2.9 cm LVIDs: 3.5 cm LVPWd: 0.91 cm EDV(Teich): 123.5 ml LVOT diam: 2.0 cm ESV(Teich): 52.4 ml Doppler Measurements & Calculations MV E max nir: 97.9 cm/sec Ao V2 max: 200.5 cm/sec MV A max nir: 83.2 cm/sec Ao max P.1 mmHg MV E/A: 1.2 Ao V2 mean: 139.4 cm/sec MV dec time: 0.18 sec Ao mean P.9 mmHg Ao V2 VTI: 44.7 cm ALMA ROSA(I,D): 2.6 cm2 AI P1/2t: 454.7 msec ALMA ROSA(V,D): 2.2 cm2 AI max nir: 365.9 cm/sec LV V1 max P.3 mmHg AI max P.6 mmHg LV V1 mean P.4 mmHg AI dec slope: 235.7 cm/sec2 LV V1 max: 144.5 cm/sec LV V1 mean: 110.2 cm/sec LV V1 VTI: 37.6 cm MR max nir: 381.7 cm/sec SV(LVOT): 114.1 ml MR max P.4 mmHg TR max nir: 269.7 cm/sec PA V2 max: 139.8 cm/sec TR max P.6 mmHg PA max P.8 mmHg Med Peak E' Nir: 5.7 cm/sec PI Vmax: 202.2 cm/sec Med E/e': 17.3 Lat Peak E' Nir: 14.1 cm/sec Lat E/e': 6.9 Left Ventricle Left ventricular systolic function is normal. Ejection Fraction = 55-60%. The transmitral spectral Do ppler flow pattern is normal for age. Right Ventricle The right ventricle is mildly dilated. The right ventricular systolic function is grossly normal. Atria The left atrium is mildly dilated. Right atrial size is normal. Mitral Valve The mitral valve is normal in structure and function. There is no mitral valve stenosis. There is mil d mitral regurgitation. Tricuspid Valve The tricuspid valve is normal in structure and function. There is mild tricuspid regurgitation. Right ventricular systolic pressure is elevated at 40-50mmHg. Aortic Valve The aortic valve opens well. No hemodynamically significant valvular aortic stenosis. Mild to moderat e aortic regurgitation. Pulmonic Valve The pulmonic valve is not well seen, but is grossly normal. There is no pulmonic valvular stenosis. M ild pulmonic valvular regurgitation. Great Vessels The aortic root is normal size. Pericardium/Pleura There is no pericardial effusion. Interpretation Summary Left ventricular systolic function is normal. Ejection Fraction = 55-60%. The right ventricle is mildly dilated. The right ventricular systolic function is grossly normal. The left atrium is mildly dilated. There is mild mitral regurgitation. There is mild tricuspid regurgitation. Right ventricular systolic pressure is elevated at 40-50mmHg. Mild to moderate aortic regurgitation. There is no pericardial effusion. MD Ruth *Pedro 07/09/2019 10:53 AM
[2019-07-09] MEDS ORDERED: NOREPINEPHRINE BITARTRATE 4 MG/4 ML ML IV ONE ×2 (12:26→19:39)
--- NOTE | 2019-07-09 13:14 | PN ---
Teaching Attending Note Name of Resident: Pooja Childers ATTENDING PHYSICIAN STATEMENT I saw and evaluated the patient. I reviewed the resident's note and discussed the case with the resident. I agree with the resident's findings and plan as documented. SUBJECTIVE: No fever or chills. No ANDERSON. She feels better than before. minimal cough. OBJECTIVE: NAD, a wake, alert , cooperative CV; RRR, 3/6 diastolic murmur at RUSB and best heard at LLSB. + JVD Lungs: crackles at L base Ext : No edema or erythema. Abd: soft , NT, ND, NL BS ASSESSMENT AND PLAN: 79 y/o lady with h/o MM, o n chemo ( last 07/01), HL, A flutter on eliquis, and endometrial cancer s/p hysterectomy who presented with feevr and cough and SOB. She was found to have PNA and septic shock 1- Septic shock due to b/l CAP: - cont ceftriaxone and azithro . Qtc 425. - follow blood cx . - She looks volume depleted despite JVD. start IVF - cont pressors. - follow legionella and pneumococcal Ag 2- H/o HTN: holdl coreg and Entresto 3- ? h/o heart failure. on entresto , coreg and lasix at home - will hold all that. - she clinically looks volume depleted - start IVF - echo pending 4- h/o A flutter - cont eliquis - hold coreg due to hypotension 5- DVT x. eliquis Critical Care Total Critical Care Time (in minutes): 40 Critical Care Statement: The care of this patient involved high complexity decision making to prevent further life threatening deterioration of the patient 's condition and/or to evaluate & treat vital organ system(s) failure or risk of failure.
--- NOTE | 2019-07-09 13:26 | EKG ---
Test Reason : Blood Pressure : / mmHG Vent. Rate : 064 BPM Atrial Rate : 064 BPM P-R Int : 150 ms QRS Dur : 090 ms QT Int : 412 ms P-R-T Axes : 015 007 015 degrees QTc Int : 425 ms NORMAL SINUS RHYTHM WHEN COMPARED WITH ECG OF 03-MAY-2019 13:23, SINUS RHYTHM HAS REPLACED ATRIAL FIBRILLATION VENT. RATE HAS DECREASED BY 74 BPM Confirmed by HARI MIMS MD ([id number]) on 07/09/2019 1:26:04 PM Referred By: Confirmed By:HARI MIMS MD
--- NOTE | 2019-07-09 14:23 | PN ---
Physical Exam: SUBJECTIVE: Patient seen and examined. No acute events overnight. Still has cough, denies SOB or chest pain. OBJECTIVE: Vital Signs Period Temp Pulse Resp BP Sys/Salgado Pulse Ox Last 24 Hr 97.6 F-98.7 F 55-93 21-28 71-101/40-56 91-97 GENERAL: The patient is awake, alert, in no acute distress. LUNGS: Reduced breath sounds el, crackles, no wheezes, no accessory muscle use. HEART: Regular rate and rhythm, S1, S2 without murmur, rub or gallop. ABDOMEN: Soft, nontender, nondistended, normoactive bowel sounds, no guarding, no rebound, no hepatosplenomegaly, no masses. EXTREMITIES: warm, +1 pitting edema BLE. cap refill<1s NEUROLOGICAL: AOx2. Normal speech Laboratory Results - last 24 hr 07/08/19 07/08/19 07/08/19 23:04 23:04 23:04 WBC 2.8 L RBC 2.56 L Hgb 8.8 L Hct 28.1 L MCV 109.8 H D MCH 34.3 H MCHC 31.2 L RDW 19.2 H Plt Count 101 L D MPV 10.5 D Absolute Neuts (auto) 2.0 Total Counted 100 Neutrophils % 70.7 Neutrophils % (Manual) 68.0 Band Neutrophils % 5.0 Lymphocytes % 9.1 D Lymphocytes % (Manual) 17.0 D Monocytes % 18.1 H Monocytes % (Manual) 9 Eosinophils % 0.8 D Eosinophils % (Manual) Basophils % 1.3 D Basophils % (Manual) Myelocytes % (Man) Promyelocytes % (Man) Blast Cells % (Manual) Nucleated RBC % 1 H Metamyelocytes Hypochromia 1+ Platelet Estimate Slt decrease Anisocytosis 1+ Macrocytosis 1+ Sodium 136 Potassium 4.5 Chloride 100 Carbon Dioxide 32 Anion Gap 3 L BUN 25.8 H Creatinine 1.5 H Est GFR (CKD-EPI)AfAm 37.48 Est GFR (CKD-EPI)NonAf 32.34 Random Glucose 111 H Lactic Acid Calcium 7.8 L Phosphorus Magnesium 2.4 Total Bilirubin 1.2 H AST 44 H ALT 24 Alkaline Phosphatase 181 H Troponin I < 0.02 B-Natriuretic Peptide 3737.4 H Total Protein 6.5 Albumin 2.0 L Urine Color Urine Appearance Urine pH Ur Specific [place] Urine Protein Urine Glucose (UA) Urine Ketones Urine Blood Urine Nitrite Urine Bilirubin Urine Urobilinogen Ur Leukocyte Esterase Urine WBC (Auto) Urine RBC (Auto) Urine Casts (Auto) U Pathogenic Cast Auto U Epithel Cells (Auto) Urine Bacteria (Auto) 07/08/19 07/08/19 07/09/19 23:04 23:04 01:50 WBC RBC Hgb Hct MCV MCH MCHC RDW Plt Count MPV Absolute Neuts (auto) Total Counted Neutrophils % Neutrophils % (Manual) Band Neutrophils % Lymphocytes % Lymphocytes % (Manual) Monocytes % Monocytes % (Manual) Eosinophils % Eosinophils % (Manual) Basophils % Basophils % (Manual) Myelocytes % (Man) Promyelocytes % (Man) Blast Cells % (Manual) Nucleated RBC % Metamyelocytes Hypochromia Platelet Estimate Anisocytosis Macrocytosis Sodium Potassium Chloride Carbon Dioxide Anion Gap BUN Creatinine Est GFR (CKD-EPI)AfAm Est GFR (CKD-EPI)NonAf Random Glucose Lactic Acid 0.8 Calcium Phosphorus Magnesium Total Bilirubin AST ALT Alkaline Phosphatase Troponin I Cancelled B-Natriuretic Peptide Total Protein Albumin Urine Color Dk yellow Urine Appearance Cloudy Urine pH 5.0 Ur Specific [place] 1.022 Urine Protein 1+ H Urine Glucose (UA) Negative Urine Ketones Negative Urine Blood 3+ H Urine Nitrite Negative Urine Bilirubin 1+ H Urine Urobilinogen 1.0 Ur Leukocyte Esterase Trace Urine WBC (Auto) 2 Urine RBC (Auto) 5.0 Urine Casts (Auto) 17 U Pathogenic Cast Auto None seen U Epithel Cells (Auto) 2.5 Urine Bacteria (Auto) 3.1 07/09/19 07/09/19 06:00 06:05 WBC 3.5 L RBC 2.61 L Hgb 9.0 L Hct 28.5 L MCV 109.1 H MCH 34.6 H MCHC 31.7 L RDW 19.3 H Plt Count 109 L MPV 10.2 Absolute Neuts (auto) 2.4 Total Counted Neutrophils % 69.0 Neutrophils % (Manual) 53.8 Band Neutrophils % 14.4 Lymphocytes % 6.8 L D Lymphocytes % (Manual) 7.7 L D Monocytes % 23.0 H Monocytes % (Manual) 9 Eosinophils % 1.1 Eosinophils % (Manual) 2.9 D Basophils % 0.1 Basophils % (Manual) 0.0 Myelocytes % (Man) 12 H D Promyelocytes % (Man) 0 Blast Cells % (Manual) 0 Nucleated RBC % 0 Metamyelocytes 0 Hypochromia 1+ Platelet Estimate Decreased Anisocytosis 1+ Macrocytosis 1+ Sodium 136 Potassium 4.0 Chloride 99 Carbon Dioxide 33 H Anion Gap 4 L BUN 28.9 H Creatinine 1.6 H Est GFR (CKD-EPI)AfAm 34.66 Est GFR (CKD-EPI)NonAf 29.91 Random Glucose 117 H Lactic Acid Calcium 7.6 L Phosphorus 3.6 Magnesium 2.4 Total Bilirubin 1.4 H AST 21 ALT 22 Alkaline Phosphatase 179 H Troponin I B-Natriuretic Peptide Total Protein 6.6 Albumin 2.0 L Urine Color Urine Appearance Urine pH Ur Specific [place] Urine Protein Urine Glucose (UA) Urine Ketones Urine Blood Urine Nitrite Urine Bilirubin Urine Urobilinogen Ur Leukocyte Esterase Urine WBC (Auto) Urine RBC (Auto) Urine Casts (Auto) U Pathogenic Cast Auto U Epithel Cells (Auto) Urine Bacteria (Auto) Active Medications Generic Name Dose Route Start Last Admin Trade Name Freq PRN Reason Stop Dose Admin Albuterol/Ipratropium 1 amp 07/09/19 08:00 Duoneb - NEB RTID [facility]I Apixaban 2.5 mg 07/09/19 10:00 07/09/19 10:21 Eliquis - PO 2.5 mg BID [facility] Administration Atorvastatin Calcium 10 mg 07/09/19 22:00 Lipitor - PO HS [facility] Calcium Carbonate/Cholecalciferol 1 tab 07/09/19 10:00 07/09/19 10:22 Os-Khai 500+D - PO 1 tab DAILY [facility] Administration Chlorhexidine Gluconate 1 applic 07/09/19 22:00 Hibiclens For Decolonization - TP HS [facility] Cholecalciferol 1,000 unit 07/09/19 10:00 07/09/19 10:23 Vitamin D3 - PO 1,000 unit DAILY [facility] Administration Cyanocobalamin 1,000 mcg 07/09/19 10:00 07/09/19 10:23 Vitamin B12 - PO 1,000 mcg DAILY [facility] Administration Norepinephrine Bitartrate 8, 500 mls @ 18.75 mls/hr 07/09/19 01:15 07/09/19 12:29 000 mcg/ Dextrose IV 20 mcg/min TITR [facility] 75 mls/hr Administration Protocol 5 MCG/MIN Azithromycin 500 mg in 250 mls @ 250 mls/hr 07/09/19 10:00 07/09/19 10:18 Zithromax 500mg Ivpb (Pre-Docked) IVPB 250 mls/hr DAILY [facility] Administration Ceftriaxone Sodium 1 gm/ 50 mls @ 100 mls/hr 07/09/19 10:00 07/09/19 10:13 Dextrose IVPB 100 mls/hr DAILY [facility] Administration Protocol Sodium Chloride 1,000 mls @ 75 mls/hr 07/09/19 09:30 07/09/19 10:10 Normal Saline - IV 75 mls/hr ASDIR [facility] Administration Mirtazapine 15 mg 07/09/19 22:00 Remeron - PO HS [facility] Mirtazapine 7.5 mg 07/09/19 22:00 Remeron - PO HS [facility] Mupirocin 1 applic 07/09/19 10:00 07/09/19 10:22 Bactroban Ointment (For Decolonization) - NS 07/14/19 09:59 1 applic BID [facility] Administration Valacyclovir HCl 500 mg 07/09/19 10:00 07/09/19 10:22 Valtrex - PO 500 mg DAILY [facility] Administration ASSESSMENT/PLAN: 79F with a PMH of multiple myeloma, HFrEF (30-35), HTN, COPD (2L NC), HLD, a- flutter (eliquis) who presents to the ER with notable hypoxia and hypotension concerning for septic shock 2/2 PNA, CHF exacerbation. ID - PNA - leukopenia WBC 3.5 - continue azithromycin, rocephin, valtrex Cards - hypotension, hx HFrEF, HTN, HLD, a-flutter - continue levophed, wean as tolerated - consider starting vasopression and solumedrol 50 q6h if MAP < 65 - R femoral CVC placed 07/08 for hypotension requiring pressors - replace 07/10 - echo 07/09 shows normal EF 55-60%, elevated RVSP 40-50mmHg - echo 05/03 showed EF 30-35%, LV hypokinesis, mod tricuspid regurg, elevated pulm artery SP > 42 - continue lipitor - Hold HTN meds d/t hypotension - DVT ppx - appreciate cards recs Pulm - PNA, hx COPD - CXR 07/09 shows RLL PNA - on 3L NC - continue duonebs Heme/Onc - hx Multiple myeloma - leukopenia WBC 3.5 - anemia Hgb 9.0 - thrombocytopenia plt 109 - appreciate heme/onc recs GI - elevated tbili, ALP - started Na diet - continue vit D, B12 - appreciate GI recs Psych - continue home mirtazapine Renal - ARABELLA - Cr 1.6 - started IV fluids - removed levin - I/O PPX - eliquis - no GI ppx FEN - NS @75mL/hr - no electrolyte disturbances - Na diet Dispo - ICU - DNR/DNI Visit type - Emergency Visit Emergency Visit: Yes ED Registration Date: 07/08/19 Care time: The patient presented to the Emergency Department on the above date and was hospitalized for further evaluation of their emergent condition. - New Patient This patient is new to me today: Yes Date on this admission: 07/09/19 - Critical Care Critical Care patient: Yes Total Critical Care Time (in minutes): 40 Critical Care Statement: The care of this patient involved high complexity decision making to prevent further life threatening deterioration of the patient 's condition and/or to evaluate & treat vital organ system(s) failure or risk of failure. ATTENDING PHYSICIAN STATEMENT I saw and evaluated the patient. I reviewed the resident's note and discussed the case with the resident. I agree with the resident's findings and plan as documented. SUBJECTIVE: OBJECTIVE: ASSESSMENT AND PLAN:
[2019-07-09] MEDS ORDERED: SODIUM CHLORIDE 0.9% 500 ML INFUS.BAG IV ONE ×2 (16:54→17:01)
--- NOTE | 2019-07-09 17:44 | PN ---
Physical Exam: SUBJECTIVE: Patient seen and examined 79 y/o F, pmh of HFrEF (30-35%), COPD (2L NC), a-flutter (on Eliquis 2.5mg BID) , multiple myeloma, endometrial cancer (s/p hysterectomy) presents w/ sob and productive cough is admitted for sepsis 2/2 CAP with hypotension. Pt is currently on norepi, but has significantly improved. Pt reports she feels much better with improvement in cough. Denies f/c/n/v/d/chest pain. OBJECTIVE: Vital Signs Period Temp Pulse Resp BP Sys/Salgado Pulse Ox Last 24 Hr 97.6 F-98.7 F 55-93 21-28 71-101/40-56 91-97 GENERAL: Awake, alert, and fully oriented, in no acute distress. HEAD: Normal with no signs of trauma. EYES: Pupils equal, round and reactive to light, EARS, NOSE, THROAT: oropharynx clear without exudates. Moist mucous membranes. NECK: Normal range of motion, supple without lymphadenopathy, JVD, or masses. LUNGS: Mild crackles noted b/l. HEART: Regular rate and rhythm, normal S1 and S2 without murmur, rub or gallop. ABDOMEN: Soft, nontender, not distended, normoactive bowel sounds, no guarding, MUSCULOSKELETAL: Normal range of motion at all joints. No bony deformities or tenderness. No CVA tenderness. UPPER EXTREMITIES: 2+ pulses, warm, well-perfused. No cyanosis. No clubbing. No peripheral edema. LOWER EXTREMITIES: 2+ pulses, !+ edema b/l NEUROLOGICAL: Cranial nerves II-XII intact. Normal speech. motor strength 5/5 , sensation intact SKIN: Warm, dry, normal turgor Laboratory Results - last 24 hr CBC,CMP WBC 3.5 K/mm3 (4.0-10.0) L 07/09/19 06:05 RBC 2.61 M/mm3 (3.60-5.2) L 07/09/19 06:05 Hgb 9.0 GM/dL (10.7-15.3) L 07/09/19 06:05 Hct 28.5 % (32.4-45.2) L 07/09/19 06:05 MCV 109.1 fl (80-96) H 07/09/19 06:05 MCH 34.6 pg (25.7-33.7) H 07/09/19 06:05 MCHC 31.7 g/dl (32.0-36.0) L 07/09/19 06:05 RDW 19.3 % (11.6-15.6) H 07/09/19 06:05 Plt Count 109 K/MM3 (134-434) L 07/09/19 06:05 MPV 10.2 fl (7.5-11.1) 07/09/19 06:05 Absolute Neuts (auto) 2.4 K/mm3 (1.5-8.0) 07/09/19 06:05 Total Counted 100 07/08/19 23:04 Neutrophils % 69.0 % (42.8-82.8) 07/09/19 06:05 Neutrophils % (Manual) 53.8 % (42.8-82.8) 07/09/19 06:05 Band Neutrophils % 14.4 % 07/09/19 06:05 Lymphocytes % 6.8 % (8-40) L D 07/09/19 06:05 Lymphocytes % (Manual) 7.7 % (8-40) L D 07/09/19 06:05 Monocytes % 23.0 % (3.8-10.2) H 07/09/19 06:05 Monocytes % (Manual) 9 % (3.8-10.2) 07/09/19 06:05 Eosinophils % 1.1 % (0-4.5) 07/09/19 06:05 Eosinophils % (Manual) 2.9 % (0-4.5) D 07/09/19 06:05 Basophils % 0.1 % (0-2.0) 07/09/19 06:05 Basophils % (Manual) 0.0 % (0-2.0) 07/09/19 06:05 Myelocytes % (Man) 12 % (0-2) H D 07/09/19 06:05 Promyelocytes % (Man) 0 % (0-2) 07/09/19 06:05 Blast Cells % (Manual) 0 % (0-0) 07/09/19 06:05 Nucleated RBC % 0 % (0-0) 07/09/19 06:05 Metamyelocytes 0 % (0-2) 07/09/19 06:05 Hypochromia 1+ 07/09/19 06:05 Platelet Estimate Decreased 07/09/19 06:05 Anisocytosis 1+ 07/09/19 06:05 Macrocytosis 1+ 07/09/19 06:05 Sodium 136 mmol/L (136-145) 07/09/19 06:00 Potassium 4.0 mmol/L (3.5-5.1) 07/09/19 06:00 Chloride 99 mmol/L (98-107) 07/09/19 06:00 Carbon Dioxide 33 mmol/L (21-32) H 07/09/19 06:00 Anion Gap 4 MMOL/L (8-16) L 07/09/19 06:00 BUN 28.9 mg/dL (7-18) H 07/09/19 06:00 Creatinine 1.6 mg/dL (0.55-1.3) H 07/09/19 06:00 Est GFR (CKD-EPI)AfAm 34.66 07/09/19 06:00 Est GFR (CKD-EPI)NonAf 29.91 07/09/19 06:00 Random Glucose 117 mg/dL (74-106) H 07/09/19 06:00 Lactic Acid 0.8 mmol/L (0.4-2.0) 07/08/19 23:04 Calcium 7.6 mg/dL (8.5-10.1) L 07/09/19 06:00 Phosphorus 3.6 mg/dL (2.5-4.9) 07/09/19 06:00 Magnesium 2.4 mg/dL (1.8-2.4) 07/09/19 06:00 Total Bilirubin 1.4 mg/dL (0.2-1) H 07/09/19 06:00 AST 21 U/L (15-37) 07/09/19 06:00 ALT 22 U/L (13-61) 07/09/19 06:00 Alkaline Phosphatase 179 U/L (45-117) H 07/09/19 06:00 Troponin I < 0.02 ng/ml (0.00-0.05) 07/08/19 23:04 B-Natriuretic Peptide 3737.4 pg/ml (5-450) H 07/08/19 23:04 Total Protein 6.6 g/dl (6.4-8.2) 07/09/19 06:00 Albumin 2.0 g/dl (3.4-5.0) L 07/09/19 06:00 Active Medications Current Medications Albuterol/Ipratropium (Duoneb -) 1 amp NEB RTID [facility] Last Admin: 07/09/19 14:40 Dose: 1 amp Apixaban (Eliquis -) 2.5 mg PO BID [facility] Last Admin: 07/09/19 10:21 Dose: 2.5 mg Atorvastatin Calcium (Lipitor -) 10 mg PO HS [facility] Calcium Carbonate/Cholecalciferol (Os-Khai 500+D -) 1 tab PO DAILY [facility] Last Admin: 07/09/19 10:22 Dose: 1 tab Chlorhexidine Gluconate (Hibiclens For Decolonization -) 1 applic TP HS [facility] Cholecalciferol (Vitamin D3 -) 1,000 unit PO DAILY [facility] Last Admin: 07/09/19 10:23 Dose: 1,000 unit Cyanocobalamin (Vitamin B12 -) 1,000 mcg PO DAILY [facility] Last Admin: 07/09/19 10:23 Dose: 1,000 mcg Norepinephrine Bitartrate 8, (000 mcg/ Dextrose) 500 mls @ 18.75 mls/hr IV TITR LEXI; Protocol Last Admin: 07/09/19 12:29 Dose: 20 mcg/min, 75 mls/hr Azithromycin (Zithromax 500mg Ivpb (Pre-Docked)) 500 mg in 250 mls @ 250 mls/ hr IVPB DAILY [facility] Last Admin: 07/09/19 10:18 Dose: 250 mls/hr Ceftriaxone Sodium 1 gm/ (Dextrose) 50 mls @ 100 mls/hr IVPB DAILY [facility]; Protocol Last Admin: 07/09/19 10:13 Dose: 100 mls/hr Sodium Chloride (Normal Saline -) 1,000 mls @ 75 mls/hr IV ASDIR [facility] Last Admin: 07/09/19 10:10 Dose: 75 mls/hr Mirtazapine (Remeron -) 15 mg PO HS [facility] Mirtazapine (Remeron -) 7.5 mg PO HS [facility] Mupirocin (Bactroban Ointment (For Decolonization) -) 1 applic NS BID [facility] Stop: 07/14/19 09:59 Last Admin: 07/09/19 10:22 Dose: 1 applic Valacyclovir HCl (Valtrex -) 500 mg PO DAILY [facility] Last Admin: 07/09/19 10:22 Dose: 500 mg Home Medications Medication Instructions Recorded Cyanocobalamin [Vitamin B12 -] 1,000 mcg PO DAILY 04/30/19 Metoprolol Tartrate 25 mg PO BID 04/30/19 Mirtazapine 22.5 mg PO DAILY 04/30/19 Omeprazole Magnesium [Prilosec] 20 mg PO DAILY 04/30/19 Sennosides [Senna -] 2 tab PO HS 04/30/19 Simvastatin 10 mg PO HS 04/30/19 Albuterol 2.5/Ipratropium 0.5 1 amp NEB RTID amp 05/10/19 [Duoneb -] Apixaban [Eliquis -] 2.5 mg PO BID tablet 05/10/19 Carvedilol [Coreg -] 6.25 mg PO BID tablet 05/10/19 Calcium Carbonate/Vitamin D3 [Eq 1 each PO DAILY 07/09/19 Calcium 500 + Vit D 400 Tab] Cholecalciferol (Vitamin D3) 1,000 unit PO DAILY 07/09/19 [Vitamin D3 -] Docusate Sodium [Colace] 200 mg PO DAILY 07/09/19 Docusate Sodium [Docusate 100 mg] 100 mg PO DAILY 07/09/19 Furosemide [Lasix -] 20 mg PO Q2D@1000 07/09/19 Mirtazapine 22.5 mg PO DAILY 07/09/19 Multivitamins [Tab-A-Vit -] 1 tab PO DAILY 07/09/19 Sacubitril/Valsartan [Entresto 24 1 tab PO HS 07/09/19 mg-26 mg Tablet] Salmeterol Xinafoate [Serevent 50 mcg IH BID 07/09/19 Diskus] Valacyclovir HCl [Valtrex -] 500 mg PO DAILY 07/09/19 ASSESSMENT/PLAN: 79 y/o F, pmh of HFrEF (30-35%), COPD (2L NC), a-flutter (on Eliquis 2.5mg BID) , multiple myeloma, endometrial cancer (s/p hysterectomy) presents w/ sob and productive cough is admitted for sepsis 2/2 CAP with hypotension #Sepsis 2/2 to CAP cont abx- ceftriaxone and azithromycin BCx- f/u in am Keep on fluids cont Norepinephrine- BP at 93/51, HR 55 F/u legionella and pneumococcal ag #HTN Hold meds for now- entresto and coreg Normalize BP #CHF Cont IVF ECHO- EF normal, AR present-mild #A-flutter cont eliquis #DVTppx on eliquis FEN cont IVF a 75 sodium controlled diet Dispo: f/u BP, cont montior, f/u BCx Visit type - Emergency Visit Emergency Visit: Yes ED Registration Date: 07/08/19 Care time: The patient presented to the Emergency Department on the above date and was hospitalized for further evaluation of their emergent condition. - New Patient This patient is new to me today: Yes Date on this admission: 07/09/19 - Critical Care Critical Care patient: No - Discharge Referral Referred to [facility] No ATTENDING PHYSICIAN STATEMENT I saw and evaluated the patient. I reviewed the resident's note and discussed the case with the resident. I agree with the resident's findings and plan as documented. SUBJECTIVE: OBJECTIVE: ASSESSMENT AND PLAN:
[2019-07-09] MEDS ORDERED: SODIUM CHLORIDE 250 ML IV STA (19:19)
[2019-07-09] MEDS: VASOPRESSIN 50 UNITS in SODIUM CHLORIDE 97.5 ML IVPB SCH (19:45)
[2019-07-09] MEDS ORDERED: VASOPRESSIN 20 UNITS/ML VIAL IV ONE (19:58)
[2019-07-09] MEDS: CHLORHEXIDINE GLUCONATE 4% CLEANSER FOR DECOLONIZATION TP SCH (21:09)
[2019-07-09] MEDS: ATORVASTATIN CA 10 MG TABLET (FP) PO SCH (21:12)
[2019-07-09] MEDS: MIRTAZAPINE 15 MG TABLET (FP) PO SCH ×2 (21:12)
[2019-07-10] MEDS: NOREPINEPHRINE BITARTRATE 8,000 MCG in DEXTROSE 5%-WATER - 492 ML IV SCH (01:31)
[2019-07-10 06:51] LABS: BASO % 0.3 % (0-2.0); EOS % 2.2 % (0-4.5); HEMATOCRIT 27.4 % (32.4-45.2); HEMOGLOBIN 8.7 GM/dL (10.7-15.3); LYMPH % 8.9 % (8-40); MCH 34.9 pg (25.7-33.7); MCHC 31.8 g/dl (32.0-36.0); MEAN CELL VOLUME 109.7 fl (80-96); MEAN PLT VOLUME 9.2 fl (7.5-11.1); MONO % 16.4 % (3.8-10.2); NEUT % 72.2 % (42.8-82.8); PLATELET COUNT 124 K/MM3 (134-434); RBC 2.49 M/mm3 (3.60-5.2); WHITE BLOOD COUNT 3.6 K/mm3 (4.0-10.0)
[2019-07-10 07:15] LABS: ALBUMIN 1.8 g/dl (3.4-5.0); BILIRUBIN,TOTAL 0.8 mg/dL (0.2-1); BLOOD UREA NITROGEN 26.4 mg/dL (7-18); CREATININE 1.3 mg/dL (0.55-1.3); MAGNESIUM 2.4 mg/dL (1.8-2.4); PHOSPHOROUS 3.8 mg/dL (2.5-4.9); POTASSIUM 4.2 mmol/L (3.5-5.1); TOT PROT 6.3 g/dl (6.4-8.2)
--- NOTE | 2019-07-10 07:55 | PN ---
Teaching Attending Note Name of Resident: Anibal Cardenas ATTENDING PHYSICIAN STATEMENT I saw and evaluated the patient. I reviewed the resident's note and discussed the case with the resident. I agree with the resident's findings and plan as documented. SUBJECTIVE: No fever or chills. she feels better. has no CP . has no diarrhea. SOB is better now. she took her venti mask off last night and felt very SOB OBJECTIVE: NAD, awake, alert , cooperative CV; RRR, 3/6 diastolic murmur at RUSB and best heard at LLSB. + JVD Lungs: crackles at b/l bases with scattered wheezes Ext : No edema or erythema. Abd: soft , NT, ND, NL BS Lines: R fem line in groin ASSESSMENT AND PLAN: 79 y/o lady with h/o MM, o n chemo ( last 07/01), HL, A flutter on eliquis, and endometrial cancer s/p hysterectomy who presented with feevr and cough and SOB. She was found to have PNA and septic shock 1- Septic shock due to b/l CAP: - blood cx with G + cocci in chains suggestive of strep - follow strep and Legionella U Ag - cont ceftriaxone and azithro. day 2. - repeat blood cx today - cont IVF . - cont pressors. vaso and LEvophed - consult ID for bacteremia 2- H/o HTN: hold coreg and Entresto 3- ? h/o heart failure. on entresto , coreg and lasix at home - Echo reviewed. Nl EF . no old echo in system - cont to hold diuretics and coreg, and entresto 4- h/o A flutter - cont eliquis - hold coreg due to hypotension - sinus marcy on tele 5- DVT x. eliquis : Critical Care Total Critical Care Time (in minutes): 35 Critical Care Statement: The care of this patient involved high complexity decision making to prevent further life threatening deterioration of the patient 's condition and/or to evaluate & treat vital organ system(s) failure or risk of failure.
[2019-07-10] MEDS: ALBUTEROL SO4 2.5/IPRATROPIUM 0.5 INH SOL 3 ML VIAL.NEB. NEB SCH ×3 (08:00→20:39)
[2019-07-10] MEDS ORDERED: cefTRIAXone SODIUM 1 GM VIAL ONE (09:26)
[2019-07-10] MEDS ORDERED: DEXTROSE 5%-WATER - 50 ML IVPB ONE (09:27)
[2019-07-10] MEDS: AZITHROMYCIN IVPB 500 MG/250 ML BAG IVPB SCH (09:36)
[2019-07-10] MEDS: APIXABAN 2.5 MG TABLET PO SCH ×2 (09:40→22:19)
[2019-07-10] MEDS: CHOLECALCIFEROL (VIT D3) 1,000 UNIT (25 MCG) TABLET PO SCH (09:40)
[2019-07-10] MEDS: CALCIUM 500MG/VIT-D 200 UNITS COMBO TABLET (FP) PO SCH (09:40)
[2019-07-10] MEDS: CEFTRIAXONE 1 GM in DEXTROSE 5%-WATER - 50 ML IVPB SCH (09:41)
[2019-07-10] MEDS: MUPIROCIN 2% TOPICAL OINTMENT FOR DECOLONIZATION NS SCH ×2 (09:42→22:20)
[2019-07-10] MEDS ORDERED: PT OWN MED DRAWER 7, Y5N ONE (09:43)
[2019-07-10] MEDS: CYANOCOBALAMIN 1,000 MCG TABLET (FP) PO SCH (09:45)
[2019-07-10] MEDS: valACYclovir HCL 500 MG TABLET (FP) PO SCH (09:45)
--- NOTE | 2019-07-10 09:51 | PN ---
Progress Note (short form) - Note Progress Note: ID consult dictated 79 [facility] and hyotension and hypoxia she has a history of multiple myeloma and is on velcade she was found to have pneumonia on cxray and admitted to the ICU she is currently on pressors as well for BP support reports feeling about the same she is alert still with cough blood culture with gpc chains reported today sepsis pneumonia strep bacteremia ?pneumococcus-urinary antigen pending myltiple myeloma ckd continue ceftriaxone add vancomycin can d/c zithromax f/u cultures in am overall prognosis is guarded Problem List - Problems (1) Sepsis Code(s): A41.9 - SEPSIS, UNSPECIFIED ORGANISM (2) Pneumonia Code(s): J18.9 - PNEUMONIA, UNSPECIFIED ORGANISM Qualifiers: Pneumonia type: due to unspecified organism Laterality: right Lung location: lower lobe of lung Qualified Code(s): J18.9 - Pneumonia, unspecified organism (3) Bacteremia Code(s): R78.81 - BACTEREMIA (4) Multiple myeloma Code(s): C90.00 - MULTIPLE MYELOMA NOT HAVING ACHIEVED REMISSION Qualifiers: Multiple myeloma remission status: in remission Qualified Code(s): C90.01 - Multiple myeloma in remission (5) CKD (chronic kidney disease) Code(s): N18.9 - CHRONIC KIDNEY DISEASE, UNSPECIFIED
[2019-07-10] MEDS: SODIUM CHLORIDE 1,000 ML IV SCH (11:00)
[2019-07-10] MEDS: VANCOMYCIN 1 GRAM (PRE-DOCKED) 1,000 MG/250 ML BAG IVPB ONE ×2 (11:01→11:47)
--- NOTE | 2019-07-10 11:02 | CONS ---
INFECTIOUS DISEASE CONSULTATION DATE OF CONSULTATION: DATE OF DICTATION: 07/10/2019 REQUESTING PHYSICIAN: The hospitalist service. seen in ICU- patient on ventimask This is an 79-year-old woman. She is admitted from the [facility] with shortness of breath and cough. She was found to be hypoxic with O2 saturation in the 80s, and EMS was called. She reports having a 1-day history of, this was on the fourteen, productive sputum that was greenish and blood tinged. She denies any sick contacts. She does live at the [facility] for the last 4 years. She has a history of multiple myeloma and gets treated weekly with Velcade. She was found to be hypoxic and hypotensive. She was admitted to the ICU and is currently on 2 pressors and a Ventimask. She is awake and alert. She reports feeling about the same since admission. She continues to have cough. PAST MEDICAL HISTORY: Notable for CHF, COPD. She is on 2 L of nasal cannula. She has a history of atrial flutter, multiple myeloma, and endometrial cancer. SURGICAL HISTORY: Notable for hysterectomy, cholecystectomy, and tonsillectomy. SOCIAL HISTORY: No history of cigarette, alcohol, or substance use. PRIMARY CARE PROVIDER: She is followed by physicians at [facility]. ALLERGIES: She is allergic to LEXAPRO. MEDICATIONS: Include B12, metoprolol, mirtazapine, omeprazole, senna, simvastatin, Eliquis, Coreg, calcium with vitamin D, Lasix, multivitamins, Serevent Diskus, and Valtrex 500 mg daily. REVIEW OF SYSTEMS: She denies chest pain or abdominal pain at this time and is resting comfortably. She has no diarrhea. PHYSICAL EXAMINATION: General: She is awake and alert. Vital Signs: Her temperature is 98.6, pulse of 46, blood pressure 121/54. Respiratory rate is 21. HEENT: She is normocephalic. Her eyes are anicteric. She has no thrush or pharyngitis. Neck: Supple. There are no meningeal signs. Lungs: Bibasilar crackles. Heart: Regular rate and rhythm. Abdomen: Soft, nontender. Extremities: Without edema. LABORATORY DATA: White count is 3.6, hemoglobin 8.7, platelets are 124. Her creatinine has improved from 1.5 to 1.3. Liver function tests are notable for an alkaline phosphatase of 218. Urinalysis has trace leukocyte esterase. Blood cultures one of four bottles is growing gram-positive cocci in chains, and legionella and pneumococcal urinary antigens are pending. Chest x-ray is notable for congestion with probable right lower lobe infiltrate. In summary, this is an 79-year-old woman admitted with sepsis, hypoxia, and hypotension, pneumonia, streptococcal bacteremia, possible pneumococcus given the pneumonia. Urinary antigen is pending. Multiple myeloma on treatment and chronic kidney disease. I would continue ceftriaxone and vancomycin. Can stop her Zithromax. Follow up her cultures and urinary antigen and repeat blood cultures have been sent. Overall prognosis is guarded. Kota DE [id number] MTDD
[2019-07-10] MEDS ORDERED: VANCOMYCIN 1 GRAM (PRE-DOCKED) 1,000 MG/250 ML BAG IVPB ONE (11:15)
[2019-07-10] MEDS ORDERED: ALBUTEROL SO4 0.083% IH SOL 2.5 MG/3 ML VIAL.NEB. NEB PRN (11:19)
--- NOTE | 2019-07-10 11:19 | PN ---
Progress Note (short form) - Note Progress Note: Pt seen and examined in the ICU Remain on NE 6mcg/min n and vasopressin 2.4 units/r overall decreasing dose Ihsanro stopped this AM Vanco added for GPC in blood Pt awake and alert states that breathing feels better afebrile ECHO done w/ improved EF noted Current Medications Albuterol/Ipratropium (Duoneb -) 1 amp NEB RTID [facility] Last Admin: 07/10/19 08:00 Dose: Not Given Apixaban (Eliquis -) 2.5 mg PO BID [facility] Last Admin: 07/10/19 09:40 Dose: 2.5 mg Atorvastatin Calcium (Lipitor -) 10 mg PO HS [facility] Last Admin: 07/09/19 21:12 Dose: 10 mg Calcium Carbonate/Cholecalciferol (Os-Khai 500+D -) 1 tab PO DAILY [facility] Last Admin: 07/10/19 09:40 Dose: 1 tab Chlorhexidine Gluconate (Hibiclens For Decolonization -) 1 applic TP HS [facility] Last Admin: 07/09/19 21:09 Dose: 1 applic Cholecalciferol (Vitamin D3 -) 1,000 unit PO DAILY [facility] Last Admin: 07/10/19 09:40 Dose: 1,000 unit Cyanocobalamin (Vitamin B12 -) 1,000 mcg PO DAILY [facility] Last Admin: 07/10/19 09:45 Dose: 1,000 mcg Norepinephrine Bitartrate 8, (000 mcg/ Dextrose) 500 mls @ 18.75 mls/hr IV TITR [facility]; Protocol Last Admin: 07/10/19 01:31 Dose: Not Given Sodium Chloride (Normal Saline -) 1,000 mls @ 75 mls/hr IV ASDIR [facility] Last Admin: 07/09/19 22:00 Dose: 75 mls/hr Vasopressin 50 units/ Sodium (Chloride) 100 mls @ 4 mls/hr IVPB TITR [facility]; Protocol Last Admin: 07/09/19 19:45 Dose: 2 units/hr, 4 mls/hr Ceftriaxone Sodium 2 gm/ (Dextrose) 100 mls @ 200 mls/hr IVPB DAILY [facility]; Protocol Vancomycin HCl (Vancomycin (Pre-Docked)) 1,000 mg in 250 mls @ 166.667 mls/hr IVPB ONCE ONE; Protocol Stop: 07/10/19 12:44 Mirtazapine (Remeron -) 15 mg PO HS [facility] Last Admin: 07/09/19 21:12 Dose: 15 mg Mirtazapine (Remeron -) 7.5 mg PO HS [facility] Last Admin: 07/09/19 21:12 Dose: 7.5 mg Mupirocin (Bactroban Ointment (For Decolonization) -) 1 applic NS BID [facility] Stop: 07/14/19 09:59 Last Admin: 07/10/19 09:42 Dose: 1 applic Valacyclovir HCl (Valtrex -) 500 mg PO DAILY [facility] Last Admin: 07/10/19 09:45 Dose: 500 mg Vital Signs Period Temp Pulse Resp BP Sys/Salgado Pulse Ox Last 24 Hr 98.2 F-98.6 F 46-61 18-30 92-130/46-85 95 Intake & Output 07/07/19 07/08/19 07/09/19 07/10/19 23:59 23:59 23:59 23:59 Intake Total 2895 1360 Output Total 850 300 Balance 2045 1060 Weight 59.3 kg General: awake alert w/ mild resp distress HEENT: PERRL, anicteric sclera, MM dry Pulm: faint insp crackles LL w/ exp wheezes CV: SM, sinus marcy Abd: SNTND. +BS Ext: WWP, trace LE edema Neuro: AOx3. CN grossly intact, KINSEY CBC, BMP 07/10/19 06:00 07/10/19 06:00 Microbiology 07/09/19 01:50 Urine - Urine Clean Catch Urine Culture - Final NO GROWTH OBTAINED 07/08/19 23:04 Blood - Peripheral Venous Blood Culture - Preliminary Pending Organism GPC in chains 07/08/19 23:04 Blood - Peripheral Venous Blood Culture - Preliminary NO GROWTH OBTAINED AFTER 24 HOURS, INCUBATION TO CONTINUE FOR 4 DAYS. Assessment/Plan Septic Shock possibly due to PNA Multiple myeloma HFrEF (30-35%) HTN COPD (2L NC) HLD A-flutter (eliquis) ABX per ID: ceftriaxone and vanco O2 as needed for sat >90% add bronchodialators Agree w/ stopping standing IVF but will give LR x1 liter given continued pressors requirements Strict I & O w/ levin Pressors for MAP >65, currently on NE 6mcg and vasopressin 2.4 TLC is in femoral vein, patient refusing to move CVC to IJ or SCV at this time given overall goals of care Follow up repeat blood cultures cont to hold anti-HTN meds given shock Oncology consulted Requires ICU monitoring for pressors PO as tolerated Yanelis ACNP
[2019-07-10] MEDS ORDERED: LACTATED RINGERS SOLUTION 1000 ML INFUS.BAG IV ONE (11:30)
[2019-07-10] MEDS ORDERED: SODIUM CHLORIDE 1,000 ML IV SCH (16:30)
--- NOTE | 2019-07-10 16:32 | PN ---
Physical Exam: SUBJECTIVE: Patient seen and examined at bedside. she had episodes of hypoxia overnight requiring escalation from NC to venturi mask. Patient otherwise stable with no new complaints. OBJECTIVE: Vital Signs Period Temp Pulse Resp BP Sys/Salgado Pulse Ox Last 24 Hr 98.2 F-98.6 F 42-60 18-30 92-136/46-85 92-95 GENERAL: The patient is awake, alert, and fully oriented, in no acute distress. LUNGS: decreased breath sounds at the bases HEART: Regular rate and rhythm, S1, S2 without murmur, rub or gallop. ABDOMEN: Soft, nontender, nondistended, normoactive bowel sounds, no guarding, no rebound, no hepatosplenomegaly, no masses. EXTREMITIES: 2+ pulses, warm, well-perfused, no edema. NEUROLOGICAL: Cranial nerves II through XII grossly intact. Normal speech, gait not observed. Laboratory Results - last 24 hr 07/10/19 07/10/19 06:00 06:00 WBC 3.6 L RBC 2.49 L Hgb 8.7 L Hct 27.4 L MCV 109.7 H MCH 34.9 H MCHC 31.8 L RDW 19.0 H Plt Count 124 L MPV 9.2 Absolute Neuts (auto) 2.6 Neutrophils % 72.2 Lymphocytes % 8.9 D Monocytes % 16.4 H Eosinophils % 2.2 D Basophils % 0.3 Nucleated RBC % 0 Sodium 134 L Potassium 4.2 Chloride 101 Carbon Dioxide 31 Anion Gap 2 L BUN 26.4 H Creatinine 1.3 Est GFR (CKD-EPI)AfAm 44.56 Est GFR (CKD-EPI)NonAf 38.44 Random Glucose 134 H Calcium 7.0 L Phosphorus 3.8 Magnesium 2.4 Total Bilirubin 0.8 AST 20 ALT 22 Alkaline Phosphatase 218 H Total Protein 6.3 L Albumin 1.8 L Active Medications Generic Name Dose Route Start Last Admin Trade Name Freq PRN Reason Stop Dose Admin Albuterol Sulfate 1 amp 07/10/19 11:19 Ventolin 0.083% Nebulizer Soln - NEB Q1H PRN SHORT OF BREATH/WHEEZING Albuterol/Ipratropium 1 amp 07/09/19 08:00 07/10/19 13:53 Duoneb - NEB 1 amp RTID [facility] Administration Apixaban 2.5 mg 07/09/19 10:00 07/10/19 09:40 Eliquis - PO 2.5 mg BID [facility] Administration Atorvastatin Calcium 10 mg 07/09/19 22:00 07/09/19 21:12 Lipitor - PO 10 mg HS [facility] Administration Calcium Carbonate/Cholecalciferol 1 tab 07/09/19 10:00 07/10/19 09:40 Os-Khai 500+D - PO 1 tab DAILY [facility] Administration Chlorhexidine Gluconate 1 applic 07/09/19 22:00 07/09/19 21:09 Hibiclens For Decolonization - TP 1 applic HS [facility] Administration Cholecalciferol 1,000 unit 07/09/19 10:00 07/10/19 09:40 Vitamin D3 - PO 1,000 unit DAILY [facility] Administration Cyanocobalamin 1,000 mcg 07/09/19 10:00 07/10/19 09:45 Vitamin B12 - PO 1,000 mcg DAILY [facility] Administration Norepinephrine Bitartrate 8, 500 mls @ 18.75 mls/hr 07/09/19 01:15 07/10/19 16:14 000 mcg/ Dextrose IV 3 mcg/min TITR [facility] 11.25 mls/hr Titration Protocol 5 MCG/MIN Vasopressin 50 units/ Sodium 100 mls @ 4 mls/hr 07/09/19 19:45 07/09/19 19:45 Chloride IVPB 2 units/hr TITR [facility] 4 mls/hr Administration Protocol 2 UNITS/HR Ceftriaxone Sodium 2 gm/ 100 mls @ 200 mls/hr 07/11/19 10:00 Dextrose IVPB DAILY [facility] Protocol Sodium Chloride 1,000 mls @ 75 mls/hr 07/10/19 16:30 Normal Saline - IV ASDIR [facility] Mirtazapine 15 mg 07/09/19 22:00 07/09/19 21:12 Remeron - PO 15 mg HS [facility] Administration Mirtazapine 7.5 mg 07/09/19 22:00 07/09/19 21:12 Remeron - PO 7.5 mg HS [facility] Administration Mupirocin 1 applic 07/09/19 10:00 07/10/19 09:42 Bactroban Ointment (For Decolonization) - NS 07/14/19 09:59 1 applic BID [facility] Administration Valacyclovir HCl 500 mg 07/09/19 10:00 07/10/19 09:45 Valtrex - PO 500 mg DAILY [facility] Administration ASSESSMENT/PLAN: 79 y/o F, pmh of HFrEF (30-35%), COPD (2L NC), a-flutter (on Eliquis 2.5mg BID) , multiple myeloma, endometrial cancer (s/p hysterectomy) presents w/ sob and productive cough is admitted for sepsis 2/2 CAP with hypotension Sepsis 2/2 to CAP -on ceftriaxone -vanco/azithro d/c -abx per iD -BCX growing gram positive cocci in chains -c/w NS @ 75 -currently on pressors; levo 7 vaso 2 -titrate pressors to maintain MAP >65 -F/u legionella and pneumococcal ag HTN -Holding home antihypertensives while on pressors CHF -ECHO- EF normal, AR present-mild A-flutter -cont eliquis FEN -NS @ 75 -monitor lytes -sodium controlled diet DVTppx -on eliquis Dispo: -admit ICU Visit type - Emergency Visit Emergency Visit: Yes ED Registration Date: 07/08/19 Care time: The patient presented to the Emergency Department on the above date and was hospitalized for further evaluation of their emergent condition. - New Patient This patient is new to me today: Yes Date on this admission: 07/10/19 - Critical Care Critical Care patient: Yes Total Critical Care Time (in minutes): 40 Critical Care Statement: The care of this patient involved high complexity decision making to prevent further life threatening deterioration of the patient 's condition and/or to evaluate & treat vital organ system(s) failure or risk of failure. - Discharge Referral Referred to [facility] No ATTENDING PHYSICIAN STATEMENT I saw and evaluated the patient. I reviewed the resident's note and discussed the case with the resident. I agree with the resident's findings and plan as documented. SUBJECTIVE: OBJECTIVE: ASSESSMENT AND PLAN:
[2019-07-10] MEDS: VASOPRESSIN 50 UNITS in SODIUM CHLORIDE 97.5 ML IVPB SCH (21:10)
[2019-07-10] MEDS: ATORVASTATIN CA 10 MG TABLET (FP) PO SCH (22:19)
[2019-07-10] MEDS: MIRTAZAPINE 15 MG TABLET (FP) PO SCH ×2 (22:19)
[2019-07-10] MEDS: CHLORHEXIDINE GLUCONATE 4% CLEANSER FOR DECOLONIZATION TP SCH (22:20)
[2019-07-11] MEDS: NOREPINEPHRINE BITARTRATE 8,000 MCG in DEXTROSE 5%-WATER - 492 ML IV SCH (01:43)
[2019-07-11 06:40] LABS: HEMATOCRIT 29.6 % (32.4-45.2); HEMOGLOBIN 9.3 GM/dL (10.7-15.3); MCH 34.7 pg (25.7-33.7); MCHC 31.5 g/dl (32.0-36.0); MEAN CELL VOLUME 110.1 fl (80-96); MEAN PLT VOLUME 9.1 fl (7.5-11.1); PLATELET COUNT 176 K/MM3 (134-434); RBC 2.69 M/mm3 (3.60-5.2); RDW 18.9 % (11.6-15.6); WHITE BLOOD COUNT 7.7 K/mm3 (4.0-10.0)
[2019-07-11 07:05] LABS: BLOOD UREA NITROGEN 26.1 mg/dL (7-18); CALCIUM 7.7 mg/dL (8.5-10.1); CREATININE 1.2 mg/dL (0.55-1.3); MAGNESIUM 2.6 mg/dL (1.8-2.4); PHOSPHOROUS 3.6 mg/dL (2.5-4.9); POTASSIUM 4.4 mmol/L (3.5-5.1)
[2019-07-11] MEDS: ALBUTEROL SO4 2.5/IPRATROPIUM 0.5 INH SOL 3 ML VIAL.NEB. NEB SCH ×3 (08:30→20:29)
--- NOTE | 2019-07-11 08:53 | PN ---
Progress Note (short form) - Note Progress Note: Subjective: unable to obtain hx as she is unresponsive. this am she became unresponsive. ABG could not be obtained and patient was placed on BIPAP. Objective: Vital Signs: Last Vital Signs Temp Pulse Resp BP Pulse Ox 98.6 F 79 25 H 124/58 L 92 L 07/11/19 06:00 07/11/19 06:00 07/11/19 06:00 07/11/19 06:00 07/10/19 20:38 Laboratory Results - last 24 hr 07/11/19 07/11/19 06:00 06:00 WBC 7.7 RBC 2.69 L Hgb 9.3 L Hct 29.6 L MCV 110.1 H MCH 34.7 H MCHC 31.5 L RDW 18.9 H Plt Count 176 D MPV 9.1 Sodium 135 L Potassium 4.4 Chloride 102 Carbon Dioxide 32 Anion Gap 2 L BUN 26.1 H Creatinine 1.2 Est GFR (CKD-EPI)AfAm 49.08 Est GFR (CKD-EPI)NonAf 42.35 Random Glucose 107 H Calcium 7.7 L Phosphorus 3.6 Magnesium 2.6 H Physical Exam: unresponsive, on BIPAP , round equal pupils. CV; RRR, 3/6 diastolic murmur at RUSB and best heard at LLSB. + JVD Lungs: very poor air entry in both lungs Ext : edema on both legs L > R. no erythema Abd: soft , NT, ND, hypoactive BS. Lines: R fem line in groin ASSESSMENT AND PLAN: 79 y/o lady with h/o MM, o n chemo ( last 07/01), HL, A flutter on eliquis, and endometrial cancer s/p hysterectomy who presented with feevr and cough and SOB. She was found to have PNA and septic shock 1- Acute hypoxic resp failure: suspect hypercapnia. Unresponsive now. has JVD adn new LE edema - dc IVF - give a dose of IV lasix 20 mg x 1 - I&O - Cont BIPAP. DNI. - will try ABG in 1-2 hours - cxray reviewed 2- Septic shock resolved . off pressors now 3- B/l CAP: blood cx is a contaminant, caog neg staph. - cont ceftriaxone - resume azithro . d/w ID - follow repeat blood cx 4- H/o HTN: cont to hold coreg and Entresto 5- h/o heart failure. confirmed with her yesterday. - try lasix today - if her BP remains stable , can gradually resume Entresto and coreg - No EF is nl 6- h/o A flutter : in sinus rhythm on tele - cont eliquis - hold coreg as above - sinus marcy on tele 7- DVT x. eliquis Visit type - Emergency Visit Emergency Visit: Yes ED Registration Date: 07/08/19 Care time: The patient presented to the Emergency Department on the above date and was hospitalized for further evaluation of their emergent condition. - New Patient This patient is new to me today: No - Critical Care Critical Care patient: Yes Total Critical Care Time (in minutes): 35 Critical Care Statement: The care of this patient involved high complexity decision making to prevent further life threatening deterioration of the patient 's condition and/or to evaluate & treat vital organ system(s) failure or risk of failure.
[2019-07-11] MEDS ORDERED: FUROSEMIDE 40 MG/4 ML INJECTABLE VIAL IVPUSH ONE (09:15)
[2019-07-11] MEDS ORDERED: DEXTROSE 5%-WATER 100 ML IVPB ONE (10:10)
[2019-07-11] MEDS: CEFTRIAXONE 2 GM in DEXTROSE 5%-WATER 100 ML IVPB SCH (10:21)
--- NOTE | 2019-07-11 11:09 | PN ---
Progress Note (short form) - Note Progress Note: somnalent this am, started on bipap, now alert, she is cold Vital Signs Period Temp Pulse Resp BP Sys/Salgado Pulse Ox Last 24 Hr 97.9 F-98.6 F 42-83 20-30 114-143/55-69 89-92 cor-rrr lungs decreased bs at bases abd soft,nt ext no edema cxray congestion CBC, BMP 07/11/19 06:00 07/11/19 06:00 Microbiology 07/10/19 09:00 Blood - Peripheral Venous Blood Culture - Preliminary NO GROWTH OBTAINED AFTER 24 HOURS, INCUBATION TO CONTINUE FOR 4 DAYS. 07/10/19 09:13 Blood - Peripheral Venous Blood Culture - Preliminary NO GROWTH OBTAINED AFTER 24 HOURS, INCUBATION TO CONTINUE FOR 4 DAYS. 07/08/19 23:04 Blood - Peripheral Venous Blood Culture - Preliminary NO GROWTH OBTAINED AFTER 48 HOURS, INCUBATION TO CONTINUE FOR 3 DAYS. 07/08/19 23:04 Blood - Peripheral Venous Blood Culture - Preliminary Staphylococcus Coagulase Neg 07/10/19 04:30 Urine For Antigen Detection Legionella Antigen - Final 07/10/19 04:30 Urine For Antigen Detection Streptococcus pneumoniae Antigen (M - Final 07/09/19 01:50 Urine - Urine Clean Catch Urine Culture - Final NO GROWTH OBTAINED a/p pneumonia blood culture is contaminant SCN one bottle chf-agree with lasix, now off pressors myltiple myeloma ckd continue ceftriaxone/zithromax improved on bipap trial lasix overall prognosis is guarded Problem List - Problems (1) Sepsis Code(s): A41.9 - SEPSIS, UNSPECIFIED ORGANISM (2) Pneumonia Code(s): J18.9 - PNEUMONIA, UNSPECIFIED ORGANISM Qualifiers: Pneumonia type: due to unspecified organism Laterality: right Lung location: lower lobe of lung Qualified Code(s): J18.9 - Pneumonia, unspecified organism (3) Bacteremia Code(s): R78.81 - BACTEREMIA (4) Multiple myeloma Code(s): C90.00 - MULTIPLE MYELOMA NOT HAVING ACHIEVED REMISSION Qualifiers: Multiple myeloma remission status: in remission Qualified Code(s): C90.01 - Multiple myeloma in remission (5) CKD (chronic kidney disease) Code(s): N18.9 - CHRONIC KIDNEY DISEASE, UNSPECIFIED
[2019-07-11] MEDS: AZITHROMYCIN IVPB 500 MG/250 ML BAG IVPB SCH (12:10)
--- NOTE | 2019-07-11 12:19 | PN ---
Progress Note (short form) - Note Progress Note: Progress Note Pulm/CCM I have seen and examined the patient in the ICU. This am pt was obtunded with minimal response to sternal rub. O2 sat 85% on 100% NRB. Pt placed on BiPAP / , 40% support with improvement in mental status and O2 sat to 93%. Remains somnolent but responsive to verbal. Off pressors. HD stable. Active Medications Albuterol Sulfate (Ventolin 0.083% Nebulizer Soln -) 1 amp NEB Q1H PRN PRN Reason: SHORT OF BREATH/WHEEZING Albuterol/Ipratropium (Duoneb -) 1 amp NEB RTID [facility] Last Admin: 07/11/19 08:30 Dose: 1 amp Apixaban (Eliquis -) 2.5 mg PO BID [facility] Last Admin: 07/10/19 22:19 Dose: 2.5 mg Atorvastatin Calcium (Lipitor -) 10 mg PO HS [facility] Last Admin: 07/10/19 22:19 Dose: 10 mg Calcium Carbonate/Cholecalciferol (Os-Khai 500+D -) 1 tab PO DAILY [facility] Last Admin: 07/10/19 09:40 Dose: 1 tab Chlorhexidine Gluconate (Hibiclens For Decolonization -) 1 applic TP HS [facility] Last Admin: 07/10/19 22:20 Dose: 1 applic Cholecalciferol (Vitamin D3 -) 1,000 unit PO DAILY [facility] Last Admin: 07/10/19 09:40 Dose: 1,000 unit Cyanocobalamin (Vitamin B12 -) 1,000 mcg PO DAILY [facility] Last Admin: 07/10/19 09:45 Dose: 1,000 mcg Ceftriaxone Sodium 2 gm/ (Dextrose) 100 mls @ 200 mls/hr IVPB DAILY [facility]; Protocol Last Admin: 07/11/19 10:21 Dose: 200 mls/hr Azithromycin (Zithromax 500mg Ivpb (Pre-Docked)) 500 mg in 250 mls @ 250 mls/ hr IVPB DAILY [facility] Last Admin: 07/11/19 12:10 Dose: 250 mls/hr Mirtazapine (Remeron -) 15 mg PO HS [facility] Last Admin: 07/10/19 22:19 Dose: 15 mg Mirtazapine (Remeron -) 7.5 mg PO HS [facility] Last Admin: 07/10/19 22:19 Dose: 7.5 mg Mupirocin (Bactroban Ointment (For Decolonization) -) 1 applic NS BID [facility] Stop: 07/14/19 09:59 Last Admin: 07/10/19 22:20 Dose: 1 applic Valacyclovir HCl (Valtrex -) 500 mg PO DAILY [facility] Last Admin: 07/10/19 09:45 Dose: 500 mg Vital Signs Period Temp Pulse Resp BP Sys/Salgado Pulse Ox Last 24 Hr 97.9 F-98.6 F 42-83 19-31 105-147/55-69 89-92 Intake & Output 07/08/19 07/09/19 07/10/19 07/11/19 23:59 23:59 23:59 23:59 Intake Total 2895 3427 1153.5 Output Total 850 850 300 Balance 2045 2577 853.5 Weight 59.3 kg 65.799 kg General: Somnolent but arousable, NAD HEENT: PERRL, anicteric sclera, MM dry Pulm: faint insp crackles LL w/ diminished CV: SM, NSR Abd: SNTND. +BS Ext: WWP, no LE edema Neuro: Somnolent. CN grossly intact, KINSEY CBC, BMP 07/11/19 06:00 07/11/19 06:00 Microbiology 07/09/19 01:50 Urine - Urine Clean Catch Urine Culture - Final NO GROWTH OBTAINED 07/08/19 23:04 Blood - Peripheral Venous Blood Culture - Preliminary Pending Organism GPC in chains 07/08/19 23:04 Blood - Peripheral Venous Blood Culture - Preliminary NO GROWTH OBTAINED AFTER 24 HOURS, INCUBATION TO CONTINUE FOR 4 DAYS. Assessment/Plan Septic Shock possibly due to PNA Multiple myeloma HFrEF (30-35%) HTN COPD (2L NC) HLD A-flutter (eliquis) ABX per ID: ceftriaxone and vanco BiPAP as needed for sat >90% Wean to NC when more awake bronchodialators Strict I & O w/ levin Pressors for MAP >65, currently on NE 6mcg and vasopressin 2.4 TLC is in femoral vein, patient refusing to move CVC to IJ or SCV at this time given overall goals of care Follow up repeat blood cultures cont to hold anti-HTN meds given shock Oncology consulted Requires ICU monitoring for pressors PO as tolerated Chelly Epperson ACNP Pulm/CCM 35mins
[2019-07-11] MEDS: CALCIUM 500MG/VIT-D 200 UNITS COMBO TABLET (FP) PO SCH (14:20)
[2019-07-11] MEDS: CYANOCOBALAMIN 1,000 MCG TABLET (FP) PO SCH (14:20)
[2019-07-11] MEDS: valACYclovir HCL 500 MG TABLET (FP) PO SCH (14:20)
[2019-07-11] MEDS: APIXABAN 2.5 MG TABLET PO SCH ×3 (14:20→22:58)
[2019-07-11] MEDS: CHOLECALCIFEROL (VIT D3) 1,000 UNIT (25 MCG) TABLET PO SCH (14:21)
[2019-07-11] MEDS: MUPIROCIN 2% TOPICAL OINTMENT FOR DECOLONIZATION NS SCH ×2 (15:23→22:59)
[2019-07-11] MEDS ORDERED: HYDROmorphone HCl 2 MG/ML VIAL IVPUSH PRN (19:22)
[2019-07-11] MEDS ORDERED: MORPHINE SULFATE 2 MG/ML VIAL IVPUSH PRN (19:36)
[2019-07-11] MEDS ORDERED: LACTATED RINGERS SOLUTION 1,000 ML/1,000 ML INFUS.BAG IV STA (20:07)
[2019-07-11] MEDS ORDERED: METOPROLOL TARTRATE 5 MG/5 ML VIAL IVPUSH ONE ×2 (21:03→22:29)
[2019-07-11] MEDS ORDERED: METOPROLOL TARTRATE 5 MG/5 ML VIAL ONE ×2 (21:05→22:22)
[2019-07-11] MEDS ORDERED: LACTATED RINGERS SOLUTION 1,000 ML/1,000 ML INFUS.BAG IV SCH (21:30)
[2019-07-11] MEDS: MIRTAZAPINE 15 MG TABLET (FP) PO SCH ×2 (22:52→22:54)
[2019-07-11] MEDS: ATORVASTATIN CA 10 MG TABLET (FP) PO SCH (22:54)
[2019-07-11] MEDS: CHLORHEXIDINE GLUCONATE 4% CLEANSER FOR DECOLONIZATION TP SCH (22:54)
[2019-07-11] MEDS: AMIODARONE IN DEXTROSE,ISO-OSM 150 MG/100 ML BAG IVPB ONE ×2 (23:41→23:44)
[2019-07-12 07:01] LABS: BASO % 0.3 % (0-2.0); EOS % 0.2 % (0-4.5); HEMATOCRIT 26.7 % (32.4-45.2); HEMOGLOBIN 8.6 GM/dL (10.7-15.3); MCH 34.5 pg (25.7-33.7); MCHC 32.3 g/dl (32.0-36.0); MEAN CELL VOLUME 106.8 fl (80-96); MEAN PLT VOLUME 8.6 fl (7.5-11.1); MONO % 20.3 % (3.8-10.2); NEUT % 71.2 % (42.8-82.8); PLATELET COUNT 168 K/MM3 (134-434); RDW 18.4 % (11.6-15.6); WHITE BLOOD COUNT 5.5 K/mm3 (4.0-10.0)
[2019-07-12 07:29] LABS: BLOOD UREA NITROGEN 30.9 mg/dL (7-18); CALCIUM 7.8 mg/dL (8.5-10.1); CREATININE 1.5 mg/dL (0.55-1.3); MAGNESIUM 2.3 mg/dL (1.8-2.4); PHOSPHOROUS 2.1 mg/dL (2.5-4.9); POTASSIUM 4.1 mmol/L (3.5-5.1)
--- NOTE | 2019-07-12 07:51 | PN ---
Physical Exam: SUBJECTIVE: Patient seen and examined by the bedside. She is alert, cooperative , and on NC. Had an episode of Afib with RVR last night, was given 2x Lopressor 5mg, after which rate went down to 70s. OBJECTIVE: Vital Signs Period Temp Pulse Resp BP Sys/Salgado Pulse Ox Last 24 Hr 97.6 F-98.3 F 57-146 15-37 69-147/43-68 89-96 GENERAL: AOx3 HEAD: Normal with no signs of trauma LUNGS: Diminished breath sounds B/L, no wheezes or crackles HEART: RRR, no murmurs ABDOMEN: Soft, non distended, no tenderness LOWER EXTREMITIES: 2+ pulses, 1+ pitting edema B/L, no calf tenderness. Right sided femoral line visible NEUROLOGICAL: Motor 5/5, sensations intact CBC, BMP 07/12/19 06:00 07/12/19 06:00 Current Medications Albuterol Sulfate (Ventolin 0.083% Nebulizer Soln -) 1 amp NEB Q1H PRN PRN Reason: SHORT OF BREATH/WHEEZING Albuterol/Ipratropium (Duoneb -) 1 amp NEB RTID [facility] Last Admin: 07/12/19 08:05 Dose: 1 amp Apixaban (Eliquis -) 2.5 mg PO BID [facility] Last Admin: 07/12/19 10:33 Dose: 2.5 mg Atorvastatin Calcium (Lipitor -) 10 mg PO HS [facility] Last Admin: 07/11/19 22:54 Dose: 10 mg Calcium Carbonate/Cholecalciferol (Os-Khai 500+D -) 1 tab PO DAILY [facility] Last Admin: 07/12/19 10:33 Dose: 1 tab Carvedilol (Coreg -) 3.125 mg PO BID [facility] Last Admin: 07/12/19 10:33 Dose: 3.125 mg Chlorhexidine Gluconate (Hibiclens For Decolonization -) 1 applic TP HS [facility] Last Admin: 07/11/19 22:54 Dose: 1 applic Cholecalciferol (Vitamin D3 -) 1,000 unit PO DAILY [facility] Last Admin: 07/12/19 10:33 Dose: 1,000 unit Cyanocobalamin (Vitamin B12 -) 1,000 mcg PO DAILY [facility] Last Admin: 07/12/19 10:33 Dose: 1,000 mcg Hydromorphone HCl (Dilaudid Vial -) 0.2 mg IVPUSH Q4H PRN PRN Reason: PAIN LEVEL 1-5 Ceftriaxone Sodium 2 gm/ (Dextrose) 100 mls @ 200 mls/hr IVPB DAILY [facility]; Protocol Last Admin: 07/12/19 10:32 Dose: 200 mls/hr Azithromycin (Zithromax 500mg Ivpb (Pre-Docked)) 500 mg in 250 mls @ 250 mls/ hr IVPB DAILY [facility] Last Admin: 07/12/19 10:32 Dose: 250 mls/hr Mirtazapine (Remeron -) 15 mg PO HS [facility] Last Admin: 07/11/19 22:52 Dose: 15 mg Mirtazapine (Remeron -) 7.5 mg PO HS [facility] Last Admin: 07/11/19 22:54 Dose: 7.5 mg Morphine Sulfate (Morphine Sulfate) 2 mg IVPUSH Q4H PRN PRN Reason: PAIN LEVEL 1 - 3 Last Admin: 07/11/19 19:50 Dose: 2 mg Mupirocin (Bactroban Ointment (For Decolonization) -) 1 applic NS BID [facility] Stop: 07/14/19 09:59 Last Admin: 07/12/19 11:00 Dose: 1 applic Valacyclovir HCl (Valtrex -) 500 mg PO DAILY [facility] Last Admin: 07/12/19 10:33 Dose: 500 mg ASSESSMENT/PLAN: 79F with PMH of multiple myeloma, CHF (EF 30-35), HTN, COPD (2L NC), HLD, and A flutter (Eliquis). She presented to the ER with notable hypoxia and hypotension concerning for septic shock 2/2 PNA and CHF exacerbation. #Neuro - Yesterday AM pt minimally responsive to sternal rub. O2 85% on 100% NRB, started BiPAP 10/01, 40% support, improved mental status and 93% O2 sat - Improved today, AOx3 #ID - PNA, WBC - continue azithromycin, rocephin, day 4, valtrex day 5 - Blood, urine cx no growth - ID: Lasix trial? #Cards - Off Norepi - R femoral CVC placed 07/08 for hypotension requiring pressors - echo 07/09 shows normal EF 55-60%, elevated RVSP 40-50mmHg - Continue lipitor - Hx of HTN, resume Coreg, hold Entresto #Pulm - PNA, hx of COPD - CXR 07/12: Congestive changes and right effusion with bibasilar atelectasis or infiltrates - Received Lasix 40mg x1 + 20mg x1 in AM - Currently on 3L NC, was on BiPAP last night. Place on BiPAP as needed - Hx of COPD: Duonebs #Heme/Onc - hx Multiple myeloma - leukopenia WBC #Psych - continue home Mirtazapine #Renal - ARABELLA - Cr 1.5 #PPX - eliquis #FEN - Na diet #Dispo - Transfer to Tele - DNR/DNI Visit type - Emergency Visit Emergency Visit: Yes ED Registration Date: 07/08/19 Care time: The patient presented to the Emergency Department on the above date and was hospitalized for further evaluation of their emergent condition. - New Patient This patient is new to me today: Yes Date on this admission: 07/12/19 - Critical Care Critical Care patient: Yes Total Critical Care Time (in minutes): 38 Critical Care Statement: The care of this patient involved high complexity decision making to prevent further life threatening deterioration of the patient 's condition and/or to evaluate & treat vital organ system(s) failure or risk of failure. ATTENDING PHYSICIAN STATEMENT I saw and evaluated the patient. I reviewed the resident's note and discussed the case with the resident. I agree with the resident's findings and plan as documented. SUBJECTIVE: OBJECTIVE: ASSESSMENT AND PLAN:
[2019-07-12] MEDS: ALBUTEROL SO4 2.5/IPRATROPIUM 0.5 INH SOL 3 ML VIAL.NEB. NEB SCH ×3 (08:05→20:17)
--- NOTE | 2019-07-12 08:55 | PN ---
Progress Note (short form) - Note Progress Note: bipap all night episode afib, resolved now alert eating eggs on NC Vital Signs Period Temp Pulse Resp BP Sys/Salgado Pulse Ox Last 24 Hr 97.6 F-98.3 F 57-146 15-37 69-131/43-68 89-96 cor-rrr lungs decreased bs at bases abd soft,nt ext trace pedal edema CBC, BMP 07/12/19 06:00 07/12/19 06:00 Microbiology 07/08/19 23:04 Blood - Peripheral Venous Blood Culture - Preliminary NO GROWTH OBTAINED AFTER 72 HOURS, INCUBATION TO CONTINUE FOR 2 DAYS. 07/10/19 09:00 Blood - Peripheral Venous Blood Culture - Preliminary NO GROWTH OBTAINED AFTER 24 HOURS, INCUBATION TO CONTINUE FOR 4 DAYS. 07/10/19 09:13 Blood - Peripheral Venous Blood Culture - Preliminary NO GROWTH OBTAINED AFTER 24 HOURS, INCUBATION TO CONTINUE FOR 4 DAYS. 07/08/19 23:04 Blood - Peripheral Venous Blood Culture - Preliminary Staphylococcus Coagulase Neg 07/10/19 04:30 Urine For Antigen Detection Legionella Antigen - Final 07/10/19 04:30 Urine For Antigen Detection Streptococcus pneumoniae Antigen (M - Final 07/09/19 01:50 Urine - Urine Clean Catch Urine Culture - Final NO GROWTH OBTAINED cxray yesterday with congestion echo with nl LV function a/p pneumonia blood culture is contaminant SCN one bottle chf-consider d/c ivf , diuresis myltiple myeloma ckd afib continue ceftriaxone/zithromax day #4 improved on bipap overall prognosis is guarded Problem List - Problems (1) Sepsis Code(s): A41.9 - SEPSIS, UNSPECIFIED ORGANISM (2) Pneumonia Code(s): J18.9 - PNEUMONIA, UNSPECIFIED ORGANISM Qualifiers: Pneumonia type: due to unspecified organism Laterality: right Lung location: lower lobe of lung Qualified Code(s): J18.9 - Pneumonia, unspecified organism (3) Bacteremia Code(s): R78.81 - BACTEREMIA (4) Multiple myeloma Code(s): C90.00 - MULTIPLE MYELOMA NOT HAVING ACHIEVED REMISSION Qualifiers: Multiple myeloma remission status: in remission Qualified Code(s): C90.01 - Multiple myeloma in remission (5) CKD (chronic kidney disease) Code(s): N18.9 - CHRONIC KIDNEY DISEASE, UNSPECIFIED
[2019-07-12] MEDS ORDERED: FUROSEMIDE 40 MG/4 ML INJECTABLE VIAL IVPUSH ONE ×2 (09:46→11:49)
[2019-07-12] MEDS ORDERED: PT OWN MED DRAWER 7, Y5N ONE (09:55)
[2019-07-12] MEDS ORDERED: DEXTROSE 5%-WATER 100 ML IVPB ONE (09:56)
[2019-07-12] MEDS ORDERED: CARVEDILOL 3.125 MG TABLET (FP) PO SCH (10:00)
[2019-07-12 10:11] LABS: ANISOCYTOSIS 1+; MACROCYTOSIS 2+; PLATELET ESTIMATE NORMAL
[2019-07-12] MEDS: AZITHROMYCIN IVPB 500 MG/250 ML BAG IVPB SCH (10:32)
[2019-07-12] MEDS: CEFTRIAXONE 2 GM in DEXTROSE 5%-WATER 100 ML IVPB SCH (10:32)
[2019-07-12] MEDS: CALCIUM 500MG/VIT-D 200 UNITS COMBO TABLET (FP) PO SCH (10:33)
[2019-07-12] MEDS: valACYclovir HCL 500 MG TABLET (FP) PO SCH (10:33)
[2019-07-12] MEDS: CHOLECALCIFEROL (VIT D3) 1,000 UNIT (25 MCG) TABLET PO SCH (10:33)
[2019-07-12] MEDS: APIXABAN 2.5 MG TABLET PO SCH ×2 (10:33→22:12)
[2019-07-12] MEDS: CYANOCOBALAMIN 1,000 MCG TABLET (FP) PO SCH (10:33)
[2019-07-12] MEDS: MUPIROCIN 2% TOPICAL OINTMENT FOR DECOLONIZATION NS SCH (11:00)
--- NOTE | 2019-07-12 11:45 | PN ---
Teaching Attending Note Name of Resident: Everette Minaya ATTENDING PHYSICIAN STATEMENT I saw and evaluated the patient. I reviewed the resident's note and discussed the case with the resident. I agree with the resident's findings and plan as documented. SUBJECTIVE: Patient seen and examined in the ICU. Awake and alert. Mildly tachypneic at rest on 5 L NC O2. Used NIPPV overnight. Some dry cough. Intake & Output 07/09/19 07/10/19 07/11/19 07/12/19 23:59 23:59 23:59 23:59 Intake Total 2895 3427 1453.5 1436 Output Total 850 850 700 600 Balance 2045 2577 753.5 836 Weight 145 lb 146 lb 9 oz Last Vital Signs Temp Pulse Resp BP Pulse Ox 97.8 F 80 25 H 114/55 L 94 L 07/12/19 10:00 07/12/19 10:00 07/12/19 10:00 07/12/19 10:00 07/12/19 08:50 Active Medications Albuterol Sulfate (Ventolin 0.083% Nebulizer Soln -) 1 amp NEB Q1H PRN PRN Reason: SHORT OF BREATH/WHEEZING Albuterol/Ipratropium (Duoneb -) 1 amp NEB RTID [facility] Last Admin: 07/12/19 08:05 Dose: 1 amp Apixaban (Eliquis -) 2.5 mg PO BID [facility] Last Admin: 07/12/19 10:33 Dose: 2.5 mg Atorvastatin Calcium (Lipitor -) 10 mg PO [facility] Last Admin: 07/11/19 22:54 Dose: 10 mg Calcium Carbonate/Cholecalciferol (Os-Khai 500+D -) 1 tab PO DAILY [facility] Last Admin: 07/12/19 10:33 Dose: 1 tab Carvedilol (Coreg -) 3.125 mg PO BID [facility] Last Admin: 07/12/19 10:33 Dose: 3.125 mg Chlorhexidine Gluconate (Hibiclens For Decolonization -) 1 applic TP [facility] Last Admin: 07/11/19 22:54 Dose: 1 applic Cholecalciferol (Vitamin D3 -) 1,000 unit PO DAILY [facility] Last Admin: 07/12/19 10:33 Dose: 1,000 unit Cyanocobalamin (Vitamin B12 -) 1,000 mcg PO DAILY [facility] Last Admin: 07/12/19 10:33 Dose: 1,000 mcg Hydromorphone HCl (Dilaudid Vial -) 0.2 mg IVPUSH Q4H PRN PRN Reason: PAIN LEVEL 1-5 Ceftriaxone Sodium 2 gm/ (Dextrose) 100 mls @ 200 mls/hr IVPB DAILY [facility]; Protocol Last Admin: 07/12/19 10:32 Dose: 200 mls/hr Azithromycin (Zithromax 500mg Ivpb (Pre-Docked)) 500 mg in 250 mls @ 250 mls/ hr IVPB DAILY [facility] Last Admin: 07/12/19 10:32 Dose: 250 mls/hr Mirtazapine (Remeron -) 15 mg PO HS [facility] Last Admin: 07/11/19 22:52 Dose: 15 mg Mirtazapine (Remeron -) 7.5 mg PO HS [facility] Last Admin: 07/11/19 22:54 Dose: 7.5 mg Morphine Sulfate (Morphine Sulfate) 2 mg IVPUSH Q4H PRN PRN Reason: PAIN LEVEL 1 - 3 Last Admin: 07/11/19 19:50 Dose: 2 mg Mupirocin (Bactroban Ointment (For Decolonization) -) 1 applic NS BID [facility] Stop: 07/14/19 09:59 Last Admin: 07/12/19 11:00 Dose: 1 applic Valacyclovir HCl (Valtrex -) 500 mg PO DAILY [facility] Last Admin: 07/12/19 10:33 Dose: 500 mg General: Awake and alert, mildly tachypneic at rest HEENT: PERRL, anicteric sclera Pulm: Bilateral rales, no wheeze CV: SM, NSR Abd: SNTND. +BS Ext: WWP, no LE edema Neuro: Awake and alert, Non-focal Laboratory Results - last 24 hr 07/12/19 07/12/19 06:00 06:00 WBC 5.5 RBC 2.50 L Hgb 8.6 L Hct 26.7 L MCV 106.8 H MCH 34.5 H MCHC 32.3 RDW 18.4 H Plt Count 168 MPV 8.6 Absolute Neuts (auto) 3.9 Neutrophils % 71.2 Neutrophils % (Manual) 81.0 Band Neutrophils % 0.0 Lymphocytes % 8.0 Lymphocytes % (Manual) 2.0 L D Monocytes % 20.3 H Monocytes % (Manual) 12 H Eosinophils % 0.2 D Eosinophils % (Manual) 0.0 D Basophils % 0.3 Basophils % (Manual) 0.0 Myelocytes % (Man) 0 D Promyelocytes % (Man) 0 Blast Cells % (Manual) 0 Nucleated RBC % 0 Metamyelocytes 0 Platelet Estimate Normal Anisocytosis 1+ Macrocytosis 2+ Schistocytes 1+ Sodium 136 Potassium 4.1 Chloride 102 Carbon Dioxide 30 Anion Gap 4 L BUN 30.9 H Creatinine 1.5 H Est GFR (CKD-EPI)AfAm 37.48 Est GFR (CKD-EPI)NonAf 32.34 Random Glucose 86 Calcium 7.8 L Phosphorus 2.1 L Magnesium 2.3 Assessment/Plan Septic Shock possibly due to PNA Multiple myeloma HFrEF (30-35%) HTN COPD (2L NC) HLD A-flutter (eliquis) Lasix IVP ABX per ID: ceftriaxone and vanco BiPAP as needed for sat >90% Wean to NC when more awake Bronchodialators Strict I & O w/ levin Remove TLC Follow final blood cultures Continue to hold anti-HTN meds given shock 4W / 4S monitoring Dr Guzman
--- NOTE | 2019-07-12 14:51 | PN ---
Teaching Attending Note Name of Resident: Ifrah Ramirez ATTENDING PHYSICIAN STATEMENT I saw and evaluated the patient. I reviewed the resident's note and discussed the case with the resident. I agree with the resident's findings and plan as documented. SUBJECTIVE: No fever or chills. No ANDERSON , no SOB . no pain . events over night are notable for A fib with RVR OBJECTIVE: awake, alert, cooperative CV; RRR, 3/6 diastolic murmur at RUSB and best heard at LLSB. + JVD Lungs: bibasilar crackles half way down Ext: edema on both legs L > R. No erythema Abd: soft, NT, ND,nl BS Lines: R fem line in groin ASSESSMENT AND PLAN: 79 y/o lady with h/o MM, o n chemo ( last 07/01), HL, A flutter on eliquis, and endometrial cancer s/p hysterectomy who presented with feevr and cough and SOB. She was found to have PNA and septic shock. 1- Acute hypoxic resp failure:due to PNA and Acute diastolic heart failure improved - cont with diuresis - I&O - BIPAP as needed 2- Septic shock resolved. off pressors now 3- B/l CAP: - cont ceftriaxone and azithro. day 4 - follow repeat blood cx. 4- H/o HTN: resume coreg resume Entresto when appropriate 5- h/o A flutter: rapid afib last night - Cont eliquis - Resume low dose coreg 6- DVT x. Eliquis
--- NOTE | 2019-07-12 17:52 | PN ---
Physical Exam: SUBJECTIVE: Patient seen and examined 79 y/o F, pmh of HFrEF (30-35%), COPD (2L NC), a-flutter (on Eliquis 2.5mg BID) , multiple myeloma, endometrial cancer (s/p hysterectomy) presents w/ sob and productive cough is admitted for sepsis 2/2 CAP with hypotension. Currently, pt was breathing on BiPaP then weaned off to NC. Pt is saturating at 90s. Pt had an overnight episode of sob and hypotension which was stabilized with 1000 LR bolus and lopressor 2.5. No amiodarone was given. Pt is doing well right now, c/ o of no further issues. Denies f/c/n/v/d/chest pain. OBJECTIVE: Vital Signs Last Vital Signs Temp Pulse Resp BP Pulse Ox 97.7 F 70 28 H 111/57 L 94 L 07/12/19 14:00 07/12/19 16:00 07/12/19 16:00 07/12/19 16:00 07/12/19 08:50 GENERAL: Awake, alert, and fully oriented, in no acute distress. HEAD: Normal with no signs of trauma. EYES: Pupils equal, round and reactive to light, EARS, NOSE, THROAT: oropharynx clear without exudates. Moist mucous membranes. NECK: Normal range of motion, supple without lymphadenopathy, JVD, or masses. LUNGS: crackles noted on lower lung ruby b/l. HEART: Regular rate and rhythm, normal S1 and S2 without murmur, rub or gallop. ABDOMEN: Soft, nontender, not distended, normoactive bowel sounds, no guarding, UPPER EXTREMITIES: 2+ pulses, warm, well-perfused. No cyanosis. No clubbing. No peripheral edema. LOWER EXTREMITIES: 2+ pulses, 1+ edema b/l. Left leg has a laceration wound which was accidental as per nursing. NEUROLOGICAL: Cranial nerves II-XII intact. Normal speech. motor strength 5/5 , sensation intact SKIN: Warm, dry, normal turgor Laboratory Results - last 24 hr CBC,CMP WBC 5.5 K/mm3 (4.0-10.0) 07/12/19 06:00 RBC 2.50 M/mm3 (3.60-5.2) L 07/12/19 06:00 Hgb 8.6 GM/dL (10.7-15.3) L 07/12/19 06:00 Hct 26.7 % (32.4-45.2) L 07/12/19 06:00 MCV 106.8 fl (80-96) H 07/12/19 06:00 MCH 34.5 pg (25.7-33.7) H 07/12/19 06:00 MCHC 32.3 g/dl (32.0-36.0) 07/12/19 06:00 RDW 18.4 % (11.6-15.6) H 07/12/19 06:00 Plt Count 168 K/MM3 (134-434) 07/12/19 06:00 MPV 8.6 fl (7.5-11.1) 07/12/19 06:00 Absolute Neuts (auto) 3.9 K/mm3 (1.5-8.0) 07/12/19 06:00 Total Counted 100 07/08/19 23:04 Neutrophils % 71.2 % (42.8-82.8) 07/12/19 06:00 Neutrophils % (Manual) 81.0 % (42.8-82.8) 07/12/19 06:00 Band Neutrophils % 0.0 % 07/12/19 06:00 Lymphocytes % 8.0 % (8-40) 07/12/19 06:00 Lymphocytes % (Manual) 2.0 % (8-40) L D 07/12/19 06:00 Monocytes % 20.3 % (3.8-10.2) H 07/12/19 06:00 Monocytes % (Manual) 12 % (3.8-10.2) H 07/12/19 06:00 Eosinophils % 0.2 % (0-4.5) D 07/12/19 06:00 Eosinophils % (Manual) 0.0 % (0-4.5) D 07/12/19 06:00 Basophils % 0.3 % (0-2.0) 07/12/19 06:00 Basophils % (Manual) 0.0 % (0-2.0) 07/12/19 06:00 Myelocytes % (Man) 0 % (0-2) D 07/12/19 06:00 Promyelocytes % (Man) 0 % (0-2) 07/12/19 06:00 Blast Cells % (Manual) 0 % (0-0) 07/12/19 06:00 Nucleated RBC % 0 % (0-0) 07/12/19 06:00 Metamyelocytes 0 % (0-2) 07/12/19 06:00 Hypochromia 1+ 07/09/19 06:05 Platelet Estimate Normal 07/12/19 06:00 Anisocytosis 1+ 07/12/19 06:00 Macrocytosis 2+ 07/12/19 06:00 Schistocytes 1+ 07/12/19 06:00 Sodium 136 mmol/L (136-145) 07/12/19 06:00 Potassium 4.1 mmol/L (3.5-5.1) 07/12/19 06:00 Chloride 102 mmol/L (98-107) 07/12/19 06:00 Carbon Dioxide 30 mmol/L (21-32) 07/12/19 06:00 Anion Gap 4 MMOL/L (8-16) L 07/12/19 06:00 BUN 30.9 mg/dL (7-18) H 07/12/19 06:00 Creatinine 1.5 mg/dL (0.55-1.3) H 07/12/19 06:00 Est GFR (CKD-EPI)AfAm 37.48 07/12/19 06:00 Est GFR (CKD-EPI)NonAf 32.34 07/12/19 06:00 Random Glucose 86 mg/dL (74-106) 07/12/19 06:00 Lactic Acid 0.8 mmol/L (0.4-2.0) 07/08/19 23:04 Calcium 7.8 mg/dL (8.5-10.1) L 07/12/19 06:00 Phosphorus 2.1 mg/dL (2.5-4.9) L 07/12/19 06:00 Magnesium 2.3 mg/dL (1.8-2.4) 07/12/19 06:00 Total Bilirubin 0.8 mg/dL (0.2-1) 07/10/19 06:00 AST 20 U/L (15-37) 07/10/19 06:00 ALT 22 U/L (13-61) 07/10/19 06:00 Alkaline Phosphatase 218 U/L (45-117) H 07/10/19 06:00 Troponin I < 0.02 ng/ml (0.00-0.05) 07/08/19 23:04 B-Natriuretic Peptide 3737.4 pg/ml (5-450) H 07/08/19 23:04 Total Protein 6.3 g/dl (6.4-8.2) L 07/10/19 06:00 Albumin 1.8 g/dl (3.4-5.0) L 07/10/19 06:00 Active Medications Current Medications Albuterol Sulfate (Ventolin 0.083% Nebulizer Soln -) 1 amp NEB Q1H PRN PRN Reason: SHORT OF BREATH/WHEEZING Albuterol/Ipratropium (Duoneb -) 1 amp NEB RTID [facility] Last Admin: 07/12/19 14:27 Dose: 1 amp Apixaban (Eliquis -) 2.5 mg PO BID [facility] Last Admin: 07/12/19 10:33 Dose: 2.5 mg Atorvastatin Calcium (Lipitor -) 10 mg PO HS [facility] Last Admin: 07/11/19 22:54 Dose: 10 mg Calcium Carbonate/Cholecalciferol (Os-Khai 500+D -) 1 tab PO DAILY [facility] Last Admin: 07/12/19 10:33 Dose: 1 tab Carvedilol (Coreg -) 3.125 mg PO BID [facility] Last Admin: 07/12/19 10:33 Dose: 3.125 mg Chlorhexidine Gluconate (Hibiclens For Decolonization -) 1 applic TP HS [facility] Last Admin: 07/11/19 22:54 Dose: 1 applic Cholecalciferol (Vitamin D3 -) 1,000 unit PO DAILY [facility] Last Admin: 07/12/19 10:33 Dose: 1,000 unit Cyanocobalamin (Vitamin B12 -) 1,000 mcg PO DAILY [facility] Last Admin: 07/12/19 10:33 Dose: 1,000 mcg Hydromorphone HCl (Dilaudid Vial -) 0.2 mg IVPUSH Q4H PRN PRN Reason: PAIN LEVEL 1-5 Ceftriaxone Sodium 2 gm/ (Dextrose) 100 mls @ 200 mls/hr IVPB DAILY [facility]; Protocol Last Admin: 07/12/19 10:32 Dose: 200 mls/hr Azithromycin (Zithromax 500mg Ivpb (Pre-Docked)) 500 mg in 250 mls @ 250 mls/ hr IVPB DAILY [facility] Last Admin: 07/12/19 10:32 Dose: 250 mls/hr Mirtazapine (Remeron -) 15 mg PO HS [facility] Last Admin: 07/11/19 22:52 Dose: 15 mg Mirtazapine (Remeron -) 7.5 mg PO HS [facility] Last Admin: 07/11/19 22:54 Dose: 7.5 mg Morphine Sulfate (Morphine Sulfate) 2 mg IVPUSH Q4H PRN PRN Reason: PAIN LEVEL 1 - 3 Last Admin: 07/11/19 19:50 Dose: 2 mg Mupirocin (Bactroban Ointment (For Decolonization) -) 1 applic NS BID [facility] Stop: 07/14/19 09:59 Last Admin: 07/12/19 11:00 Dose: 1 applic Valacyclovir HCl (Valtrex -) 500 mg PO DAILY [facility] Last Admin: 07/12/19 10:33 Dose: 500 mg Home Medications Medication Instructions Recorded Cyanocobalamin [Vitamin B12 -] 1,000 mcg PO DAILY 04/30/19 Metoprolol Tartrate 25 mg PO BID 04/30/19 Mirtazapine 22.5 mg PO DAILY 04/30/19 Omeprazole Magnesium [Prilosec] 20 mg PO DAILY 04/30/19 Sennosides [Senna -] 2 tab PO HS 04/30/19 Simvastatin 10 mg PO HS 04/30/19 Albuterol 2.5/Ipratropium 0.5 1 amp NEB RTID amp 05/10/19 [Duoneb -] Apixaban [Eliquis -] 2.5 mg PO BID tablet 05/10/19 Carvedilol [Coreg -] 6.25 mg PO BID tablet 05/10/19 Calcium Carbonate/Vitamin D3 [Eq 1 each PO DAILY 07/09/19 Calcium 500 + Vit D 400 Tab] Cholecalciferol (Vitamin D3) 1,000 unit PO DAILY 07/09/19 [Vitamin D3 -] Docusate Sodium [Colace] 200 mg PO DAILY 07/09/19 Docusate Sodium [Docusate 100 mg] 100 mg PO DAILY 07/09/19 Furosemide [Lasix -] 20 mg PO Q2D@1000 07/09/19 Mirtazapine 22.5 mg PO DAILY 07/09/19 Multivitamins [Tab-A-Vit -] 1 tab PO DAILY 07/09/19 Sacubitril/Valsartan [Entresto 24 1 tab PO HS 07/09/19 mg-26 mg Tablet] Salmeterol Xinafoate [Serevent 50 mcg IH BID 07/09/19 Diskus] Valacyclovir HCl [Valtrex -] 500 mg PO DAILY 07/09/19 Microbiology 07/08/19 23:04 Blood - Peripheral Venous Blood Culture - Final Staphylococcus Capitis 07/10/19 09:00 Blood - Peripheral Venous Blood Culture - Preliminary NO GROWTH OBTAINED AFTER 48 HOURS, INCUBATION TO CONTINUE FOR 3 DAYS. 07/10/19 09:13 Blood - Peripheral Venous Blood Culture - Preliminary NO GROWTH OBTAINED AFTER 48 HOURS, INCUBATION TO CONTINUE FOR 3 DAYS. 07/08/19 23:04 Blood - Peripheral Venous Blood Culture - Preliminary NO GROWTH OBTAINED AFTER 72 HOURS, INCUBATION TO CONTINUE FOR 2 DAYS. 07/10/19 04:30 Urine For Antigen Detection Legionella Antigen - Final 07/10/19 04:30 Urine For Antigen Detection Streptococcus pneumoniae Antigen (M - Final 07/09/19 01:50 Urine - Urine Clean Catch Urine Culture - Final NO GROWTH OBTAINED ASSESSMENT/PLAN: 79 y/o F, pmh of HFrEF (30-35%), COPD (2L NC), a-flutter (on Eliquis 2.5mg BID) , multiple myeloma, endometrial cancer (s/p hysterectomy) presents w/ sob and productive cough is admitted for sepsis 2/2 CAP with hypotension #Acute hypoxic respiratory failure likely 2/2 to pneumonia and d-chf- symptoms have improved Diuretics as needed Monitor I&Os and daily wt BiPaP PRN NC as tolerated CXR- there is minimal decrease in congestive + infiltrative changes, slight improvement #Sepsis 2/2 to CAP cont abx- ceftriaxone and azithromycin D4 BCx neg UCx neg #HTN Pt off pressors Stable BP #CHF Resume low dose of Coreg Resume when appropriate- Entresto Old ECHO- 05/03/19- EF 30-35% Lasix 20 given #A-flutter cont eliquis #DVTppx on eliquis FEN sodium controlled diet Dispo: monitor BP, cont Abx, off pressors, monitor in ICU Visit type - Emergency Visit Emergency Visit: Yes ED Registration Date: 07/08/19 Care time: The patient presented to the Emergency Department on the above date and was hospitalized for further evaluation of their emergent condition. - New Patient This patient is new to me today: Yes Date on this admission: 07/12/19 - Critical Care Critical Care patient: No - Discharge Referral Referred to [facility] No ATTENDING PHYSICIAN STATEMENT I saw and evaluated the patient. I reviewed the resident's note and discussed the case with the resident. I agree with the resident's findings and plan as documented. SUBJECTIVE: OBJECTIVE: ASSESSMENT AND PLAN:
[2019-07-12] MEDS ORDERED: MORPHINE SULFATE 2 MG/ML VIAL IVPUSH PRN (18:10)
[2019-07-12] MEDS ORDERED: HYDROmorphone HCl 2 MG/ML VIAL IVPUSH PRN (18:10)
[2019-07-12] MEDS: ATORVASTATIN CA 10 MG TABLET (FP) PO SCH (22:12)
[2019-07-12] MEDS: MIRTAZAPINE 15 MG TABLET (FP) PO SCH ×2 (22:12→22:17)
[2019-07-12] MEDS: CARVEDILOL 3.125 MG TABLET (FP) PO SCH (22:17)
[2019-07-13] MEDS: MUPIROCIN 2% TOPICAL OINTMENT FOR DECOLONIZATION NS SCH ×3 (06:09→22:01)
[2019-07-13] MEDS: CHLORHEXIDINE GLUCONATE 4% CLEANSER FOR DECOLONIZATION TP SCH ×2 (06:09→22:07)
[2019-07-13 07:06] LABS: HEMOGLOBIN 8.8 GM/dL (10.7-15.3); MCHC 31.5 g/dl (32.0-36.0); MEAN CELL VOLUME 107.9 fl (80-96); PLATELET COUNT 169 K/MM3 (134-434); RBC 2.59 M/mm3 (3.60-5.2); RDW 18.8 % (11.6-15.6); WHITE BLOOD COUNT 4.5 K/mm3 (4.0-10.0)
[2019-07-13] MEDS: ALBUTEROL SO4 2.5/IPRATROPIUM 0.5 INH SOL 3 ML VIAL.NEB. NEB SCH ×3 (08:00→20:13)
[2019-07-13 08:06] LABS: ALBUMIN 1.8 g/dl (3.4-5.0); BILIRUBIN,TOTAL 0.4 mg/dL (0.2-1); BLOOD UREA NITROGEN 29.8 mg/dL (7-18); CALCIUM 8.7 mg/dL (8.5-10.1); CREATININE 1.4 mg/dL (0.55-1.3); MAGNESIUM 2.2 mg/dL (1.8-2.4); POTASSIUM 3.6 mmol/L (3.5-5.1); TOT PROT 6.1 g/dl (6.4-8.2)
[2019-07-13] MEDS ORDERED: DEXTROSE 5%-WATER 100 ML IVPB ONE (09:54)
[2019-07-13] MEDS: ALBUTEROL SO4 0.083% IH SOL 2.5 MG/3 ML VIAL.NEB. NEB PRN ×2 (10:23→16:53)
[2019-07-13] MEDS: AZITHROMYCIN IVPB 500 MG/250 ML BAG IVPB SCH (10:24)
[2019-07-13] MEDS: CEFTRIAXONE 2 GM in DEXTROSE 5%-WATER 100 ML IVPB SCH (10:24)
[2019-07-13] MEDS: valACYclovir HCL 500 MG TABLET (FP) PO SCH (10:25)
[2019-07-13] MEDS: CARVEDILOL 3.125 MG TABLET (FP) PO SCH (10:26)
[2019-07-13] MEDS: CYANOCOBALAMIN 1,000 MCG TABLET (FP) PO SCH (10:26)
[2019-07-13] MEDS: CHOLECALCIFEROL (VIT D3) 1,000 UNIT (25 MCG) TABLET PO SCH (10:27)
[2019-07-13] MEDS: CALCIUM 500MG/VIT-D 200 UNITS COMBO TABLET (FP) PO SCH (10:27)
[2019-07-13] MEDS ORDERED: CARVEDILOL 3.125 MG TABLET (FP) PO ONE (10:57)
--- NOTE | 2019-07-13 10:57 | PN ---
Progress Note, Physician History of Present Illness: pulmonary awake,less dyspneic on nasal cannula. + trace hemoptysis - Current Medication List Current Medications: Active Medications Albuterol Sulfate (Ventolin 0.083% Nebulizer Soln -) 1 amp NEB Q1H PRN PRN Reason: SHORT OF BREATH/WHEEZING Last Admin: 07/13/19 10:23 Dose: 1 amp Albuterol/Ipratropium (Duoneb -) 1 amp NEB RTID [facility] Last Admin: 07/13/19 08:00 Dose: 1 amp Apixaban (Eliquis -) 2.5 mg PO BID [facility] Last Admin: 07/12/19 22:12 Dose: 2.5 mg Atorvastatin Calcium (Lipitor -) 10 mg PO HS [facility] Last Admin: 07/12/19 22:12 Dose: 10 mg Calcium Carbonate/Cholecalciferol (Os-Khai 500+D -) 1 tab PO DAILY [facility] Last Admin: 07/13/19 10:27 Dose: 1 tab Carvedilol (Coreg -) 3.125 mg PO BID [facility] Last Admin: 07/13/19 10:26 Dose: 3.125 mg Chlorhexidine Gluconate (Hibiclens For Decolonization -) 1 applic TP HS [facility] Last Admin: 07/13/19 06:09 Dose: Not Given Cholecalciferol (Vitamin D3 -) 1,000 unit PO DAILY [facility] Last Admin: 07/13/19 10:27 Dose: 1,000 unit Cyanocobalamin (Vitamin B12 -) 1,000 mcg PO DAILY [facility] Last Admin: 07/13/19 10:26 Dose: 1,000 mcg Hydromorphone HCl (Dilaudid Vial -) 0.2 mg IVPUSH Q4H PRN PRN Reason: PAIN LEVEL 1-5 Azithromycin (Zithromax 500mg Ivpb (Pre-Docked)) 500 mg in 250 mls @ 250 mls/ hr IVPB DAILY [facility] Last Admin: 07/13/19 10:24 Dose: 250 mls/hr Ceftriaxone Sodium 2 gm/ (Dextrose) 100 mls @ 200 mls/hr IVPB DAILY [facility]; Protocol Last Admin: 07/13/19 10:24 Dose: 200 mls/hr Mirtazapine (Remeron -) 15 mg PO HS [facility] Last Admin: 07/12/19 22:12 Dose: 15 mg Mirtazapine (Remeron -) 7.5 mg PO HS [facility] Last Admin: 07/12/19 22:17 Dose: 7.5 mg Morphine Sulfate (Morphine Sulfate) 2 mg IVPUSH Q4H PRN PRN Reason: PAIN LEVEL 1 - 3 Mupirocin (Bactroban Ointment (For Decolonization) -) 1 applic NS BID [facility] Stop: 07/14/19 09:59 Last Admin: 07/13/19 10:27 Dose: Not Given Valacyclovir HCl (Valtrex -) 500 mg PO DAILY [facility] Last Admin: 07/13/19 10:25 Dose: 500 mg - Objective Vital Signs: Vital Signs Temperature 97.7 F 07/13/19 05:25 Pulse Rate 85 07/13/19 05:25 Respiratory Rate 20 07/13/19 05:25 Blood Pressure 111/63 07/13/19 05:25 O2 Sat by Pulse Oximetry (%) 94 L 07/12/19 08:50 Constitutional: Yes: Well Nourished, Calm Eyes: Yes: WNL HENT: Yes: WNL Neck: Yes: WNL Cardiovascular: Yes: Pulse Irregular, S1, S2 Respiratory: Yes: Rales (bilateral crackles) Gastrointestinal: Yes: Normal Bowel Sounds, Soft Extremities: Yes: WNL Edema: No Labs: CBC, BMP 07/13/19 05:30 07/13/19 05:30 - ....Imaging Chest X-ray: Report Reviewed, Image Reviewed Problem List - Problems (1) CHF (congestive heart failure) Code(s): I50.9 - HEART FAILURE, UNSPECIFIED Qualifiers: Heart failure type: unspecified Heart failure chronicity: chronic Qualified Code(s): I50.9 - Heart failure, unspecified (2) Hypotension Code(s): I95.9 - HYPOTENSION, UNSPECIFIED Qualifiers: Hypotension type: unspecified hypotension type Qualified Code(s): I95.9 - Hypotension, unspecified (3) Pneumonia Code(s): J18.9 - PNEUMONIA, UNSPECIFIED ORGANISM Qualifiers: Pneumonia type: due to unspecified organism Laterality: right Lung location: lower lobe of lung Qualified Code(s): J18.9 - Pneumonia, unspecified organism (4) Atrial flutter Code(s): I48.92 - UNSPECIFIED ATRIAL FLUTTER (5) Dyspnea Code(s): R06.00 - DYSPNEA, UNSPECIFIED Qualifiers: Dyspnea type: unspecified Qualified Code(s): R06.00 - Dyspnea, unspecified (6) Multiple myeloma Code(s): C90.00 - MULTIPLE MYELOMA NOT HAVING ACHIEVED REMISSION Qualifiers: Multiple myeloma remission status: in remission Qualified Code(s): C90.01 - Multiple myeloma in remission Assessment/Plan Assessment/Plan Septic Shock possibly due to PNA clinically improving Multiple myeloma HFrEF (30-35%) HTN COPD (2L NC) HLD A-flutter (eliquis) Anemia Lasix IVP ABX per ID: ceftriaxone and vanco BiPAP as needed for sat >90% Supplemental 02 Bronchodialators Strict I & O monitor lytes,renal function,h+h DR AGUSTIN
[2019-07-13] MEDS: APIXABAN 2.5 MG TABLET PO SCH ×2 (11:53→22:01)
--- NOTE | 2019-07-13 17:33 | PN ---
Physical Exam: SUBJECTIVE: Patient seen and examined 79 y/o F, pmh of HFrEF (30-35%), COPD (2L NC), a-flutter (on Eliquis 2.5mg BID) , multiple myeloma, endometrial cancer (s/p hysterectomy) presents w/ sob and productive cough is admitted for sepsis 2/2 CAP with hypotension. As per nursing pt had an episode a-fib but was stable after a few min. Currently, pt is on NC, asymptomatic, afebrile without any issues or c/o. Denies f/c/n/v/d/ chest pain. OBJECTIVE: Vital Signs Period Temp Pulse Resp BP Sys/Salgado Pulse Ox Last 24 Hr 97.7 F-98.2 F 69-87 18-30 99-142/47-63 GENERAL: Awake, alert, and fully oriented, in no acute distress. HEAD: Normal with no signs of trauma. EYES: Pupils equal, round and reactive to light, EARS, NOSE, THROAT: oropharynx clear without exudates. Moist mucous membranes. NECK: Normal range of motion, supple without lymphadenopathy LUNGS: crackles noted b/l HEART: Regular rate and rhythm- hx of a-flutter, normal S1 and S2 without murmur , rub or gallop. ABDOMEN: Soft, nontender, not distended, normoactive bowel sounds, no guarding, UPPER EXTREMITIES: 2+ pulses, warm, well-perfused. No cyanosis. LOWER EXTREMITIES: 2+ pulses, 1+ edema b/l. Left leg has a laceration wound which was accidental as per nursing. NEUROLOGICAL: Cranial nerves II-XII intact. Normal speech. motor strength 5/5 , sensation intact SKIN: Warm, dry, normal turgor Laboratory Results - last 24 hr CBC,CMP WBC 4.5 K/mm3 (4.0-10.0) 07/13/19 05:30 RBC 2.59 M/mm3 (3.60-5.2) L 07/13/19 05:30 Hgb 8.8 GM/dL (10.7-15.3) L 07/13/19 05:30 Hct 28.0 % (32.4-45.2) L 07/13/19 05:30 MCV 107.9 fl (80-96) H 07/13/19 05:30 MCH 34.0 pg (25.7-33.7) H 07/13/19 05:30 MCHC 31.5 g/dl (32.0-36.0) L 07/13/19 05:30 RDW 18.8 % (11.6-15.6) H 07/13/19 05:30 Plt Count 169 K/MM3 (134-434) 07/13/19 05:30 MPV 9.0 fl (7.5-11.1) 07/13/19 05:30 Absolute Neuts (auto) 3.9 K/mm3 (1.5-8.0) 07/12/19 06:00 Total Counted 100 07/08/19 23:04 Neutrophils % 71.2 % (42.8-82.8) 07/12/19 06:00 Neutrophils % (Manual) 81.0 % (42.8-82.8) 07/12/19 06:00 Band Neutrophils % 0.0 % 07/12/19 06:00 Lymphocytes % 8.0 % (8-40) 07/12/19 06:00 Lymphocytes % (Manual) 2.0 % (8-40) L D 07/12/19 06:00 Monocytes % 20.3 % (3.8-10.2) H 07/12/19 06:00 Monocytes % (Manual) 12 % (3.8-10.2) H 07/12/19 06:00 Eosinophils % 0.2 % (0-4.5) D 07/12/19 06:00 Eosinophils % (Manual) 0.0 % (0-4.5) D 07/12/19 06:00 Basophils % 0.3 % (0-2.0) 07/12/19 06:00 Basophils % (Manual) 0.0 % (0-2.0) 07/12/19 06:00 Myelocytes % (Man) 0 % (0-2) D 07/12/19 06:00 Promyelocytes % (Man) 0 % (0-2) 07/12/19 06:00 Blast Cells % (Manual) 0 % (0-0) 07/12/19 06:00 Nucleated RBC % 0 % (0-0) 07/12/19 06:00 Metamyelocytes 0 % (0-2) 07/12/19 06:00 Hypochromia 1+ 07/09/19 06:05 Platelet Estimate Normal 07/12/19 06:00 Anisocytosis 1+ 07/12/19 06:00 Macrocytosis 2+ 07/12/19 06:00 Schistocytes 1+ 07/12/19 06:00 Sodium 140 mmol/L (136-145) 07/13/19 05:30 Potassium 3.6 mmol/L (3.5-5.1) 07/13/19 05:30 Chloride 101 mmol/L (98-107) 07/13/19 05:30 Carbon Dioxide 35 mmol/L (21-32) H 07/13/19 05:30 Anion Gap 5 MMOL/L (8-16) L 07/13/19 05:30 BUN 29.8 mg/dL (7-18) H 07/13/19 05:30 Creatinine 1.4 mg/dL (0.55-1.3) H 07/13/19 05:30 Est GFR (CKD-EPI)AfAm 40.74 07/13/19 05:30 Est GFR (CKD-EPI)NonAf 35.15 07/13/19 05:30 Random Glucose 78 mg/dL (74-106) 07/13/19 05:30 Lactic Acid 0.8 mmol/L (0.4-2.0) 07/08/19 23:04 Calcium 8.7 mg/dL (8.5-10.1) 07/13/19 05:30 Phosphorus 2.1 mg/dL (2.5-4.9) L 07/12/19 06:00 Magnesium 2.2 mg/dL (1.8-2.4) 07/13/19 05:30 Total Bilirubin 0.4 mg/dL (0.2-1) 07/13/19 05:30 AST 8 U/L (15-37) L 07/13/19 05:30 ALT 13 U/L (13-61) 07/13/19 05:30 Alkaline Phosphatase 192 U/L (45-117) H 07/13/19 05:30 Troponin I < 0.02 ng/ml (0.00-0.05) 07/08/19 23:04 B-Natriuretic Peptide 3737.4 pg/ml (5-450) H 07/08/19 23:04 Total Protein 6.1 g/dl (6.4-8.2) L 07/13/19 05:30 Albumin 1.8 g/dl (3.4-5.0) L 07/13/19 05:30 Active Medications Current Medications Albuterol Sulfate (Ventolin 0.083% Nebulizer Soln -) 1 amp NEB Q1H PRN PRN Reason: SHORT OF BREATH/WHEEZING Last Admin: 07/13/19 16:53 Dose: 1 amp Albuterol/Ipratropium (Duoneb -) 1 amp NEB RTID [facility] Last Admin: 07/13/19 13:01 Dose: 1 amp Apixaban (Eliquis -) 2.5 mg PO BID [facility] Last Admin: 07/13/19 11:53 Dose: Not Given Atorvastatin Calcium (Lipitor -) 10 mg PO HS [facility] Last Admin: 07/12/19 22:12 Dose: 10 mg Calcium Carbonate/Cholecalciferol (Os-Khai 500+D -) 1 tab PO DAILY [facility] Last Admin: 07/13/19 10:27 Dose: 1 tab Carvedilol (Coreg -) 6.25 mg PO BID [facility] Chlorhexidine Gluconate (Hibiclens For Decolonization -) 1 applic TP HS [facility] Last Admin: 07/13/19 06:09 Dose: Not Given Cholecalciferol (Vitamin D3 -) 1,000 unit PO DAILY [facility] Last Admin: 07/13/19 10:27 Dose: 1,000 unit Cyanocobalamin (Vitamin B12 -) 1,000 mcg PO DAILY [facility] Last Admin: 07/13/19 10:26 Dose: 1,000 mcg Furosemide (Lasix Injection -) 20 mg IVPUSH DAILY [facility] Hydromorphone HCl (Dilaudid Vial -) 0.2 mg IVPUSH Q4H PRN PRN Reason: PAIN LEVEL 1-5 Azithromycin (Zithromax 500mg Ivpb (Pre-Docked)) 500 mg in 250 mls @ 250 mls/ hr IVPB DAILY [facility] Last Admin: 07/13/19 10:24 Dose: 250 mls/hr Ceftriaxone Sodium 2 gm/ (Dextrose) 100 mls @ 200 mls/hr IVPB DAILY [facility]; Protocol Last Admin: 07/13/19 10:24 Dose: 200 mls/hr Mirtazapine (Remeron -) 15 mg PO HS [facility] Last Admin: 07/12/19 22:12 Dose: 15 mg Mirtazapine (Remeron -) 7.5 mg PO HS [facility] Last Admin: 07/12/19 22:17 Dose: 7.5 mg Morphine Sulfate (Morphine Sulfate) 2 mg IVPUSH Q4H PRN PRN Reason: PAIN LEVEL 1 - 3 Mupirocin (Bactroban Ointment (For Decolonization) -) 1 applic NS BID [facility] Stop: 07/14/19 09:59 Last Admin: 07/13/19 10:27 Dose: Not Given Valacyclovir HCl (Valtrex -) 500 mg PO DAILY [facility] Last Admin: 07/13/19 10:25 Dose: 500 mg Home Medications Medication Instructions Recorded Cyanocobalamin [Vitamin B12 -] 1,000 mcg PO DAILY 04/30/19 Metoprolol Tartrate 25 mg PO BID 04/30/19 Mirtazapine 22.5 mg PO DAILY 04/30/19 Omeprazole Magnesium [Prilosec] 20 mg PO DAILY 04/30/19 Sennosides [Senna -] 2 tab PO HS 04/30/19 Simvastatin 10 mg PO HS 04/30/19 Albuterol 2.5/Ipratropium 0.5 1 amp NEB RTID amp 05/10/19 [Duoneb -] Apixaban [Eliquis -] 2.5 mg PO BID tablet 05/10/19 Carvedilol [Coreg -] 6.25 mg PO BID tablet 05/10/19 Calcium Carbonate/Vitamin D3 [Eq 1 each PO DAILY 07/09/19 Calcium 500 + Vit D 400 Tab] Cholecalciferol (Vitamin D3) 1,000 unit PO DAILY 07/09/19 [Vitamin D3 -] Docusate Sodium [Colace] 200 mg PO DAILY 07/09/19 Docusate Sodium [Docusate 100 mg] 100 mg PO DAILY 07/09/19 Furosemide [Lasix -] 20 mg PO Q2D@1000 07/09/19 Mirtazapine 22.5 mg PO DAILY 07/09/19 Multivitamins [Tab-A-Vit -] 1 tab PO DAILY 07/09/19 Sacubitril/Valsartan [Entresto 24 1 tab PO HS 07/09/19 mg-26 mg Tablet] Salmeterol Xinafoate [Serevent 50 mcg IH BID 07/09/19 Diskus] Valacyclovir HCl [Valtrex -] 500 mg PO DAILY 07/09/19 Microbiology 07/10/19 09:00 Blood - Peripheral Venous Blood Culture - Preliminary NO GROWTH OBTAINED AFTER 72 HOURS, INCUBATION TO CONTINUE FOR 2 DAYS. 07/10/19 09:13 Blood - Peripheral Venous Blood Culture - Preliminary NO GROWTH OBTAINED AFTER 72 HOURS, INCUBATION TO CONTINUE FOR 2 DAYS. 07/08/19 23:04 Blood - Peripheral Venous Blood Culture - Preliminary NO GROWTH OBTAINED AFTER 96 HOURS, INCUBATION TO CONTINUE FOR 1 DAYS. 07/08/19 23:04 Blood - Peripheral Venous Blood Culture - Final Staphylococcus Capitis 07/10/19 04:30 Urine For Antigen Detection Legionella Antigen - Final 07/10/19 04:30 Urine For Antigen Detection Streptococcus pneumoniae Antigen (M - Final 07/09/19 01:50 Urine - Urine Clean Catch Urine Culture - Final NO GROWTH OBTAINED ASSESSMENT/PLAN: 79 y/o F, pmh of HFrEF (30-35%), COPD (2L NC), a-flutter (on Eliquis 2.5mg BID) , multiple myeloma, endometrial cancer (s/p hysterectomy) presents w/ sob and productive cough is admitted for sepsis 2/2 CAP with hypotension #Acute hypoxic respiratory failure likely 2/2 to pneumonia and d-chf- symptoms have improved Monitor I&Os and daily wt BiPaP PRN NC as tolerated #Sepsis 2/2 to CAP cont abx- ceftriaxone and azithromycin D5 Sputum Cx ordered for blood tinged sputum #HTN Stable BP #CHF Coreg 3.125 given Increase Coreg 6.25 Hold- Entresto Lasix 20 daily #A-flutter hold eliquis tonight #DVTppx hold eliquis due to blood in sputum FEN sodium controlled diet Dispo: monitor BP, cont Abx, BiPaP as needed Visit type - Emergency Visit Emergency Visit: Yes ED Registration Date: 07/08/19 Care time: The patient presented to the Emergency Department on the above date and was hospitalized for further evaluation of their emergent condition. - New Patient This patient is new to me today: Yes Date on this admission: 07/13/19 - Critical Care Critical Care patient: No - Discharge Referral Referred to [facility] Med [facility] No ATTENDING PHYSICIAN STATEMENT I saw and evaluated the patient. I reviewed the resident's note and discussed the case with the resident. I agree with the resident's findings and plan as documented. SUBJECTIVE: OBJECTIVE: ASSESSMENT AND PLAN:
--- NOTE | 2019-07-13 18:20 | PN ---
Progress Note (short form) - Note Progress Note: improved alert nasal canulla Vital Signs Period Temp Pulse Resp BP Sys/Salgado Pulse Ox Last 24 Hr 97.7 F-98.2 F 69-85 18-24 99-116/47-63 cor-rrr lungs decreased bs at bases abd soft,nt ext no edema cxray unchanged CBC, BMP 07/13/19 05:30 07/13/19 05:30 Microbiology 07/10/19 09:00 Blood - Peripheral Venous Blood Culture - Preliminary NO GROWTH OBTAINED AFTER 72 HOURS, INCUBATION TO CONTINUE FOR 2 DAYS. 07/10/19 09:13 Blood - Peripheral Venous Blood Culture - Preliminary NO GROWTH OBTAINED AFTER 72 HOURS, INCUBATION TO CONTINUE FOR 2 DAYS. 07/08/19 23:04 Blood - Peripheral Venous Blood Culture - Preliminary NO GROWTH OBTAINED AFTER 96 HOURS, INCUBATION TO CONTINUE FOR 1 DAYS. 07/08/19 23:04 Blood - Peripheral Venous Blood Culture - Final Staphylococcus Capitis 07/10/19 04:30 Urine For Antigen Detection Legionella Antigen - Final 07/10/19 04:30 Urine For Antigen Detection Streptococcus pneumoniae Antigen (M - Final 07/09/19 01:50 Urine - Urine Clean Catch Urine Culture - Final NO GROWTH OBTAINED a/p pneumonia blood culture is contaminant SCN one bottle-no need for vancomycin chf-consider gentle diuresis myltiple myeloma ckd afib continue ceftriaxone/zithromax day #5, d/c zithromax in am improved Problem List - Problems (1) Sepsis Code(s): A41.9 - SEPSIS, UNSPECIFIED ORGANISM (2) Pneumonia Code(s): J18.9 - PNEUMONIA, UNSPECIFIED ORGANISM Qualifiers: Pneumonia type: due to unspecified organism Laterality: right Lung location: lower lobe of lung Qualified Code(s): J18.9 - Pneumonia, unspecified organism (3) Bacteremia Code(s): R78.81 - BACTEREMIA (4) Multiple myeloma Code(s): C90.00 - MULTIPLE MYELOMA NOT HAVING ACHIEVED REMISSION Qualifiers: Multiple myeloma remission status: in remission Qualified Code(s): C90.01 - Multiple myeloma in remission (5) CKD (chronic kidney disease) Code(s): N18.9 - CHRONIC KIDNEY DISEASE, UNSPECIFIED
--- NOTE | 2019-07-13 18:44 | PN ---
Teaching Attending Note Name of Resident: Ifrah Ramirez ATTENDING PHYSICIAN STATEMENT I saw and evaluated the patient. I reviewed the resident's note and discussed the case with the resident. I agree with the resident's findings and plan as documented. SUBJECTIVE: No fever or chills. no ANDERSON . no SOB or CP OBJECTIVE: awake, alert, cooperative CV; RRR, 3/6 diastolic murmur at RUSB and best heard at LLSB. + JVD Lungs: bibasilar crackles half way down Ext: edema on both legs improved . No erythema Abd: soft, NT, ND,nl BS ASSESSMENT AND PLAN: 79 y/o lady with h/o MM, o n chemo ( last 07/01), HL, A flutter on eliquis, and endometrial cancer s/p hysterectomy who presented with feevr and cough and SOB. She was found to have PNA and septic shock. 1- Acute hypoxic resp failure: due to PNA and Acute diastolic heart failure improved - cont with diuresis - I&O - BIPAP as needed 2- Septic shock resolved. off pressors now 3- B/l CAP: - cont ceftriaxone and azithro. day 5. dc azithro in am - repeat blood cx neg x 72 hr . 4- H/o HTN: increase coreg to 6.25 her home dose . went into Afib with RVR last night resume Entresto when renal function improves 5- H/o A flutter: again A fib with RVR last night - Cont eliquis - increase coreg 6- DVT x. on Eliquis.
[2019-07-13] MEDS: CARVEDILOL 6.25 MG TABLET (FP) PO SCH (22:01)
[2019-07-13] MEDS: ATORVASTATIN CA 10 MG TABLET (FP) PO SCH (22:01)
[2019-07-13] MEDS: MIRTAZAPINE 15 MG TABLET (FP) PO SCH ×2 (22:01)
[2019-07-14 06:56] LABS: HEMATOCRIT 28.4 % (32.4-45.2); MCH 34.3 pg (25.7-33.7); MCHC 31.6 g/dl (32.0-36.0); MEAN CELL VOLUME 108.8 fl (80-96); MEAN PLT VOLUME 8.6 fl (7.5-11.1); PLATELET COUNT 221 K/MM3 (134-434); RBC 2.61 M/mm3 (3.60-5.2); RDW 18.4 % (11.6-15.6); WHITE BLOOD COUNT 5.5 K/mm3 (4.0-10.0)
[2019-07-14 07:28] LABS: BILIRUBIN,TOTAL 0.3 mg/dL (0.2-1); BLOOD UREA NITROGEN 31.8 mg/dL (7-18); CALCIUM 9.5 mg/dL (8.5-10.1); CREATININE 1.3 mg/dL (0.55-1.3); POTASSIUM 4.4 mmol/L (3.5-5.1); TOT PROT 6.7 g/dl (6.4-8.2)
[2019-07-14] MEDS: ALBUTEROL SO4 2.5/IPRATROPIUM 0.5 INH SOL 3 ML VIAL.NEB. NEB SCH ×3 (09:00→20:31)
[2019-07-14 09:12] LABS: ARTERIAL BLD GAS O2 SATURATION 92.6 % (95-98); ARTERIAL BLOOD GAS BASE EXCESS 6.5 meq/l (-2-2); ARTERIAL BLOOD GAS PO2 68.1 mmHg (80-100); ARTERIAL BLOOD GAS pH 7.27 (7.35-7.45)
[2019-07-14 09:13] LABS: ALLENS TEST POSITIVE
[2019-07-14 09:18] LABS: ARTERIAL BLOOD GAS PCO2 76.9 mmHg (35-45)
--- NOTE | 2019-07-14 09:32 | PN ---
Teaching Attending Note Name of Resident: Fco Schreiber ATTENDING PHYSICIAN STATEMENT I saw and evaluated the patient. I reviewed the resident's note and discussed the case with the resident. I agree with the resident's findings and plan as documented. SUBJECTIVE: Patient is found in hypercapneic state, difficulty to arouse the patient. Vital Signs Temperature 98.3 F 07/14/19 02:00 Pulse Rate 68 07/14/19 06:00 Respiratory Rate 20 07/14/19 06:00 Blood Pressure 133/60 07/14/19 06:00 O2 Sat by Pulse Oximetry (%) 93 L 07/13/19 21:00 GENERAL: The patient is arousable but with difficulty. HEAD: Normal with no signs of trauma. EYES: PERRL, extraocular movements intact, sclera anicteric, conjunctiva clear. ENT: Ears normal, oropharynx clear without exudates, moist mucous membranes. NECK: Trachea midline, full range of motion, supple. LUNGS: decreased Breath sounds BL, no wheezes, no crackles, no accessory muscle use. HEART: Regular rate and rhythm, S1, S2 without murmur, rub or gallop. 3/6 diastolic murmur at RUSB and best heard at LLSB. + JVD ABDOMEN: Soft, nontender, nondistended, normoactive bowel sounds, no guarding, no rebound, no hepatosplenomegaly, no masses. EXTREMITIES: 2+ pulses, warm, well-perfused, edema on both legs L > R. No erythema, NEUROLOGICAL: Cranial nerves II through XII grossly intact. Normal speech, gait not observed. PSYCH: Normal mood, normal affect. SKIN: Warm, dry, normal turgor, no rashes or lesions noted BCD WBC 5.5 K/mm3 (4.0-10.0) 07/14/19 05:20 RBC 2.61 M/mm3 (3.60-5.2) L 07/14/19 05:20 Hgb 9.0 GM/dL (10.7-15.3) L 07/14/19 05:20 Hct 28.4 % (32.4-45.2) L 07/14/19 05:20 MCV 108.8 fl (80-96) H 07/14/19 05:20 MCHC 31.6 g/dl (32.0-36.0) L 07/14/19 05:20 RDW 18.4 % (11.6-15.6) H 07/14/19 05:20 Plt Count 221 K/MM3 (134-434) D 07/14/19 05:20 MPV 8.6 fl (7.5-11.1) 07/14/19 05:20 CMP Sodium 139 mmol/L (136-145) 07/14/19 05:20 Potassium 4.4 mmol/L (3.5-5.1) 07/14/19 05:20 Chloride 100 mmol/L (98-107) 07/14/19 05:20 Carbon Dioxide 37 mmol/L (21-32) H 07/14/19 05:20 Anion Gap 3 MMOL/L (8-16) L 07/14/19 05:20 BUN 31.8 mg/dL (7-18) H 07/14/19 05:20 Creatinine 1.3 mg/dL (0.55-1.3) 07/14/19 05:20 Random Glucose 112 mg/dL (74-106) H 07/14/19 05:20 Calcium 9.5 mg/dL (8.5-10.1) 07/14/19 05:20 Total Bilirubin 0.3 mg/dL (0.2-1) 07/14/19 05:20 AST 6 U/L (15-37) L 07/14/19 05:20 ALT 13 U/L (13-61) 07/14/19 05:20 Alkaline Phosphatase 187 U/L (45-117) H 07/14/19 05:20 Total Protein 6.7 g/dl (6.4-8.2) 07/14/19 05:20 Albumin 2.0 g/dl (3.4-5.0) L 07/14/19 05:20 CARDIAC ENZYMES Troponin I < 0.02 ng/ml (0.00-0.05) 07/08/19 23:04 Current Medications Generic Name Dose Route Start Last Admin Trade Name Freq PRN Reason Stop Dose Admin Albuterol Sulfate 1 amp 07/12/19 18:10 07/13/19 16:53 Ventolin 0.083% Nebulizer Soln - NEB 1 amp Q1H PRN Administration SHORT OF BREATH/WHEEZING Albuterol/Ipratropium 1 amp 07/12/19 20:00 11/19/19 20:13 Duoneb - NEB 1 amp RTID [facility] Administration Apixaban 2.5 mg 07/12/19 22:00 07/13/19 22:01 Eliquis - PO 2.5 mg BID [facility] Administration Atorvastatin Calcium 10 mg 07/12/19 22:00 07/13/19 22:01 Lipitor - PO 10 mg HS [facility] Administration Calcium Carbonate/Cholecalciferol 1 tab 07/13/19 10:00 07/13/19 10:27 Os-Khai 500+D - PO 1 tab DAILY [facility] Administration Carvedilol 6.25 mg 07/13/19 10:56 07/13/19 22:01 Coreg - PO 6.25 mg BID [facility] Administration Chlorhexidine Gluconate 1 applic 07/12/19 22:00 07/13/19 22:07 Hibiclens For Decolonization - TP Not Given HS [facility] Cholecalciferol 1,000 unit 07/13/19 10:00 07/13/19 10:27 Vitamin D3 - PO 1,000 unit DAILY [facility] Administration Cyanocobalamin 1,000 mcg 07/13/19 10:00 07/13/19 10:26 Vitamin B12 - PO 1,000 mcg DAILY [facility] Administration Furosemide 20 mg 07/14/19 10:00 Lasix Injection - IVPUSH DAILY [facility] Hydromorphone HCl 0.2 mg 07/12/19 18:10 Dilaudid Vial - IVPUSH Q4H PRN PAIN LEVEL 1-5 Azithromycin 500 mg in 250 mls @ 250 mls/hr 07/13/19 10:00 07/13/19 10:24 Zithromax 500mg Ivpb (Pre-Docked) IVPB 250 mls/hr DAILY [facility] Administration Ceftriaxone Sodium 2 gm/ 100 mls @ 200 mls/hr 07/13/19 10:00 07/13/19 10:24 Dextrose IVPB 200 mls/hr DAILY [facility] Administration Protocol Mirtazapine 15 mg 07/12/19 22:00 07/13/19 22:01 Remeron - PO 15 mg HS [facility] Administration Mirtazapine 7.5 mg 07/12/19 22:00 07/13/19 22:01 Remeron - PO 7.5 mg HS [facility] Administration Morphine Sulfate 2 mg 07/12/19 18:10 Morphine Sulfate IVPUSH Q4H PRN PAIN LEVEL 1 - 3 Mupirocin 1 applic 07/12/19 22:00 07/13/19 22:01 Bactroban Ointment (For Decolonization) - NS 07/14/19 09:59 Not Given BID [facility] Valacyclovir HCl 500 mg 07/13/19 10:00 07/13/19 10:25 Valtrex - PO 500 mg DAILY [facility] Administration Home Medications Medication Instructions Recorded Cyanocobalamin [Vitamin B12 -] 1,000 mcg PO DAILY 04/30/19 Metoprolol Tartrate 25 mg PO BID 04/30/19 Mirtazapine 22.5 mg PO DAILY 04/30/19 Omeprazole Magnesium [Prilosec] 20 mg PO DAILY 04/30/19 Sennosides [Senna -] 2 tab PO HS 04/30/19 Simvastatin 10 mg PO HS 04/30/19 Albuterol 2.5/Ipratropium 0.5 1 amp NEB RTID amp 05/10/19 [Duoneb -] Apixaban [Eliquis -] 2.5 mg PO BID tablet 05/10/19 Carvedilol [Coreg -] 6.25 mg PO BID tablet 05/10/19 Calcium Carbonate/Vitamin D3 [Eq 1 each PO DAILY 07/09/19 Calcium 500 + Vit D 400 Tab] Cholecalciferol (Vitamin D3) 1,000 unit PO DAILY 07/09/19 [Vitamin D3 -] Docusate Sodium [Colace] 200 mg PO DAILY 07/09/19 Docusate Sodium [Docusate 100 mg] 100 mg PO DAILY 07/09/19 Furosemide [Lasix -] 20 mg PO Q2D@1000 07/09/19 Mirtazapine 22.5 mg PO DAILY 07/09/19 Multivitamins [Tab-A-Vit -] 1 tab PO DAILY 07/09/19 Sacubitril/Valsartan [Entresto 24 1 tab PO HS 07/09/19 mg-26 mg Tablet] Salmeterol Xinafoate [Serevent 50 mcg IH BID 07/09/19 Diskus] Valacyclovir HCl [Valtrex -] 500 mg PO DAILY 07/09/19 ASSESSMENT AND PLAN: Patient is an 79yo female with Pmhx of MM, on chemo ( last 07/01), HL, A flutter on eliquis, and endometrial cancer s/p hysterectomy who presented with fever and cough with SOB. She was found to have PNA and septic shock. # Acute hypoxic hypercapneic respiratory failure: due to PNA / Acute diastolic heart failure improved , continue continuos BIPAP since patient is barely arousable, pulm. in the case. repeat ABG elevated Pco2 , katerina increase the rate of bipap and reduce Fio2 to 40% from 50%, discussed with dr [place] # Acute diastolic HF: on lasix continue , I's & Os. # B/l CAP: on ceftriaxone and azithro. day 5 # s/p Septic shock resolved. off pressors now # H/o HTN: resume coreg , resume Entresto when appropriate # h/o A flutter: Cont eliquis , resume low dose coreg DVT x. Eliquis
[2019-07-14 10:31] LABS: ARTERIAL BLD GAS O2 SATURATION 96.5 % (95-98); ARTERIAL BLOOD GAS BASE EXCESS 8.1 meq/l (-2-2); ARTERIAL BLOOD GAS PO2 84.7 mmHg (80-100); ARTERIAL BLOOD GAS pH 7.32 (7.35-7.45)
[2019-07-14 10:32] LABS: ALLENS TEST POSITIVE
[2019-07-14] MEDS ORDERED: DEXTROSE 5%-WATER 100 ML IVPB ONE (10:33)
[2019-07-14 10:36] LABS: ARTERIAL BLOOD GAS PCO2 70.7 mmHg (35-45)
[2019-07-14] MEDS: CEFTRIAXONE 2 GM in DEXTROSE 5%-WATER 100 ML IVPB SCH (10:55)
[2019-07-14] MEDS: AZITHROMYCIN IVPB 500 MG/250 ML BAG IVPB SCH (10:55)
--- NOTE | 2019-07-14 11:22 | PN ---
Progress Note, Physician History of Present Illness: PULMONARY POORLY RESPONSIVE ,PLACED BACK ON BIPAP ,IPAP 15,EPAP 5 RR 22 - Current Medication List Current Medications: Active Medications Albuterol Sulfate (Ventolin 0.083% Nebulizer Soln -) 1 amp NEB Q1H PRN PRN Reason: SHORT OF BREATH/WHEEZING Last Admin: 07/13/19 16:53 Dose: 1 amp Albuterol/Ipratropium (Duoneb -) 1 amp NEB RTID [facility] Last Admin: 07/14/19 09:00 Dose: 1 amp Apixaban (Eliquis -) 2.5 mg PO BID [facility] Last Admin: 07/13/19 22:01 Dose: 2.5 mg Atorvastatin Calcium (Lipitor -) 10 mg PO HS [facility] Last Admin: 07/13/19 22:01 Dose: 10 mg Calcium Carbonate/Cholecalciferol (Os-Khai 500+D -) 1 tab PO DAILY [facility] Last Admin: 07/13/19 10:27 Dose: 1 tab Carvedilol (Coreg -) 6.25 mg PO BID [facility] Last Admin: 07/13/19 22:01 Dose: 6.25 mg Chlorhexidine Gluconate (Hibiclens For Decolonization -) 1 applic TP HS [facility] Last Admin: 07/13/19 22:07 Dose: Not Given Cholecalciferol (Vitamin D3 -) 1,000 unit PO DAILY [facility] Last Admin: 07/13/19 10:27 Dose: 1,000 unit Cyanocobalamin (Vitamin B12 -) 1,000 mcg PO DAILY [facility] Last Admin: 07/13/19 10:26 Dose: 1,000 mcg Furosemide (Lasix Injection -) 20 mg IVPUSH DAILY [facility] Hydromorphone HCl (Dilaudid Vial -) 0.2 mg IVPUSH Q4H PRN PRN Reason: PAIN LEVEL 1-5 Azithromycin (Zithromax 500mg Ivpb (Pre-Docked)) 500 mg in 250 mls @ 250 mls/ hr IVPB DAILY [facility] Last Admin: 07/14/19 10:55 Dose: 250 mls/hr Ceftriaxone Sodium 2 gm/ (Dextrose) 100 mls @ 200 mls/hr IVPB DAILY [facility]; Protocol Last Admin: 07/14/19 10:55 Dose: 200 mls/hr Mirtazapine (Remeron -) 15 mg PO HS [facility] Last Admin: 07/13/19 22:01 Dose: 15 mg Mirtazapine (Remeron -) 7.5 mg PO HS [facility] Last Admin: 07/13/19 22:01 Dose: 7.5 mg Morphine Sulfate (Morphine Sulfate) 2 mg IVPUSH Q4H PRN PRN Reason: PAIN LEVEL 1 - 3 Valacyclovir HCl (Valtrex -) 500 mg PO DAILY [facility] Last Admin: 07/13/19 10:25 Dose: 500 mg - Objective Vital Signs: Vital Signs Temperature 98.5 F 07/14/19 09:00 Pulse Rate 70 07/14/19 09:00 Respiratory Rate 18 07/14/19 09:00 Blood Pressure 108/56 L 07/14/19 09:00 O2 Sat by Pulse Oximetry (%) 95 07/14/19 10:45 Constitutional: Yes: Well Nourished, Other (POORLY RESPONSIVE) Eyes: Yes: WNL HENT: Yes: WNL Neck: Yes: WNL Cardiovascular: Yes: Pulse Irregular, S1, S2 Respiratory: Yes: Diminished Gastrointestinal: Yes: Normal Bowel Sounds, Soft Extremities: Yes: WNL Edema: No Labs: CBC, BMP 07/14/19 05:20 07/14/19 05:20 Problem List - Problems (1) CHF (congestive heart failure) Code(s): I50.9 - HEART FAILURE, UNSPECIFIED Qualifiers: Heart failure type: unspecified Heart failure chronicity: chronic Qualified Code(s): I50.9 - Heart failure, unspecified (2) Hypotension Code(s): I95.9 - HYPOTENSION, UNSPECIFIED Qualifiers: Hypotension type: unspecified hypotension type Qualified Code(s): I95.9 - Hypotension, unspecified (3) Pneumonia Code(s): J18.9 - PNEUMONIA, UNSPECIFIED ORGANISM Qualifiers: Pneumonia type: due to unspecified organism Laterality: right Lung location: lower lobe of lung Qualified Code(s): J18.9 - Pneumonia, unspecified organism (4) Atrial flutter Code(s): I48.92 - UNSPECIFIED ATRIAL FLUTTER (5) Dyspnea Code(s): R06.00 - DYSPNEA, UNSPECIFIED Qualifiers: Dyspnea type: unspecified Qualified Code(s): R06.00 - Dyspnea, unspecified (6) Multiple myeloma Code(s): C90.00 - MULTIPLE MYELOMA NOT HAVING ACHIEVED REMISSION Qualifiers: Multiple myeloma remission status: in remission Qualified Code(s): C90.01 - Multiple myeloma in remission Assessment/Plan Assessment/Plan Septic Shock possibly due to PNA clinically improving Multiple myeloma HFrEF (30-35%) HTN COPD (2L NC) HLD A-flutter (eliquis) Anemia Lasix IVP ABX per ID: ceftriaxone and vanco BiPAP as needed for sat >90% Supplemental 02 Bronchodialators Strict I & O monitor lytes,renal function,h+h F/U ABG CHEST X-RAY DR AGUSTIN
[2019-07-14 12:01] LABS: ARTERIAL BLD GAS O2 SATURATION 93.8 % (95-98); ARTERIAL BLOOD GAS BASE EXCESS 9.1 meq/l (-2-2); ARTERIAL BLOOD GAS PCO2 55.7 mmHg (35-45); ARTERIAL BLOOD GAS PO2 63.5 mmHg (80-100); ARTERIAL BLOOD GAS pH 7.41 (7.35-7.45)
[2019-07-14 12:02] LABS: ALLENS TEST POSITIVE
[2019-07-14] MEDS ORDERED: PT OWN MED DRAWER 7, Y5N ONE ×2 (12:06→12:51)
[2019-07-14] MEDS: FUROSEMIDE 40 MG/4 ML INJECTABLE VIAL IVPUSH SCH (12:23)
[2019-07-14] MEDS: CALCIUM 500MG/VIT-D 200 UNITS COMBO TABLET (FP) PO SCH (12:52)
[2019-07-14] MEDS: APIXABAN 2.5 MG TABLET PO SCH ×2 (12:52→23:30)
[2019-07-14] MEDS: valACYclovir HCL 500 MG TABLET (FP) PO SCH (12:52)
[2019-07-14] MEDS: CYANOCOBALAMIN 1,000 MCG TABLET (FP) PO SCH (12:53)
[2019-07-14] MEDS: CHOLECALCIFEROL (VIT D3) 1,000 UNIT (25 MCG) TABLET PO SCH (12:53)
[2019-07-14] MEDS: CARVEDILOL 6.25 MG TABLET (FP) PO SCH ×2 (12:53→23:30)
--- NOTE | 2019-07-14 16:18 | PN ---
Physical Exam: SUBJECTIVE: Patient seen and examined 79 y/o F, pmh of HFrEF (30-35%), COPD (2L NC), a-flutter (on Eliquis 2.5mg BID) , multiple myeloma, endometrial cancer (s/p hysterectomy) presents w/ sob and productive cough is admitted for sepsis 2/2 CAP with hypotension. Today pt appeared lethargic and was hypoxic to the low 80s on NC. She was minimally responsive. Once BiPaP was placed, pt's O2 saturation climbed to the high 90s and she was more responsive. Her symptoms improved. BiPAP settings changed to rate of 22, IPAP15 and EPAP5. She was afebrile. Denied f/c/n/v/d/chest pain. OBJECTIVE: Vital Signs Period Temp Pulse Resp BP Sys/Salgado Pulse Ox Last 24 Hr 97.8 F-99.7 F 68-84 18-20 90-140/41-76 93-97 GENERAL: Lethargic but responsive. She appeared to be in mild-moderate distress HEAD: Normal with no signs of trauma. EYES: Pupils equal, round and reactive to light, EARS, NOSE, THROAT: oropharynx clear without exudates. Moist mucous membranes. LUNGS: crackles noted b/l HEART: Regular rate and rhythm- hx of a-flutter, normal S1 and S2 without murmur , rub or gallop. ABDOMEN: Soft, nontender, not distended, normoactive bowel sounds, no guarding, UPPER EXTREMITIES: 2+ pulses, warm, well-perfused. No cyanosis. LOWER EXTREMITIES: 2+ pulses, 1+ edema b/l. Left leg has a laceration wound which was accidental as per nursing. NEUROLOGICAL: Minimal speech. SKIN: Warm, dry, normal turgor Laboratory Results - last 24 hr 07/14/19 07/14/19 07/14/19 05:20 05:20 08:53 WBC 5.5 RBC 2.61 L Hgb 9.0 L Hct 28.4 L MCV 108.8 H MCH 34.3 H MCHC 31.6 L RDW 18.4 H Plt Count 221 D MPV 8.6 Anticoagulation Therapy No Result Required. Puncture Site Right radial ABG pH 7.27 L ABG pCO2 at Pt Temp 76.9 H* ABG pO2 at Pt Temp 68.1 L ABG HCO3 34.4 H ABG O2 Sat (Measured) 92.6 L ABG O2 Content 11.3 ABG Base Excess 6.5 H Shivam Test Positive O2 Delivery Device No Result Required. Oxygen Flow Rate No Result Required. Vent Mode No Result Required. Vent Rate No Result Required. Mechanical Rate No Result Required. Pressure Support Vent No Result Required. Sodium 139 Potassium 4.4 Chloride 100 Carbon Dioxide 37 H Anion Gap 3 L BUN 31.8 H Creatinine 1.3 Est GFR (CKD-EPI)AfAm 44.56 Est GFR (CKD-EPI)NonAf 38.44 Random Glucose 112 H Calcium 9.5 Total Bilirubin 0.3 AST 6 L ALT 13 Alkaline Phosphatase 187 H Total Protein 6.7 Albumin 2.0 L Active Medications Current Medications Albuterol Sulfate (Ventolin 0.083% Nebulizer Soln -) 1 amp NEB Q1H PRN PRN Reason: SHORT OF BREATH/WHEEZING Last Admin: 07/13/19 16:53 Dose: 1 amp Albuterol/Ipratropium (Duoneb -) 1 amp NEB RTID [facility] Last Admin: 07/14/19 13:23 Dose: 1 amp Apixaban (Eliquis -) 2.5 mg PO BID [facility] Last Admin: 07/14/19 12:52 Dose: 2.5 mg Atorvastatin Calcium (Lipitor -) 10 mg PO HS [facility] Last Admin: 07/13/19 22:01 Dose: 10 mg Calcium Carbonate/Cholecalciferol (Os-Khai 500+D -) 1 tab PO DAILY [facility] Last Admin: 07/14/19 12:52 Dose: 1 tab Carvedilol (Coreg -) 6.25 mg PO BID [facility] Last Admin: 07/14/19 12:53 Dose: 6.25 mg Chlorhexidine Gluconate (Hibiclens For Decolonization -) 1 applic TP HS [facility] Last Admin: 07/13/19 22:07 Dose: Not Given Cholecalciferol (Vitamin D3 -) 1,000 unit PO DAILY [facility] Last Admin: 07/14/19 12:53 Dose: 1,000 unit Cyanocobalamin (Vitamin B12 -) 1,000 mcg PO DAILY [facility] Last Admin: 07/14/19 12:53 Dose: 1,000 mcg Furosemide (Lasix Injection -) 20 mg IVPUSH DAILY [facility] Last Admin: 07/14/19 12:23 Dose: 20 mg Hydromorphone HCl (Dilaudid Vial -) 0.2 mg IVPUSH Q4H PRN PRN Reason: PAIN LEVEL 1-5 Azithromycin (Zithromax 500mg Ivpb (Pre-Docked)) 500 mg in 250 mls @ 250 mls/ hr IVPB DAILY [facility] Last Admin: 07/14/19 10:55 Dose: 250 mls/hr Ceftriaxone Sodium 2 gm/ (Dextrose) 100 mls @ 200 mls/hr IVPB DAILY [facility]; Protocol Last Admin: 07/14/19 10:55 Dose: 200 mls/hr Mirtazapine (Remeron -) 15 mg PO HS [facility] Last Admin: 07/13/19 22:01 Dose: 15 mg Mirtazapine (Remeron -) 7.5 mg PO HS [facility] Last Admin: 07/13/19 22:01 Dose: 7.5 mg Morphine Sulfate (Morphine Sulfate) 2 mg IVPUSH Q4H PRN PRN Reason: PAIN LEVEL 1 - 3 Valacyclovir HCl (Valtrex -) 500 mg PO DAILY [facility] Last Admin: 07/14/19 12:52 Dose: 500 mg Home Medications Medication Instructions Recorded Cyanocobalamin [Vitamin B12 -] 1,000 mcg PO DAILY 04/30/19 Metoprolol Tartrate 25 mg PO BID 04/30/19 Mirtazapine 22.5 mg PO DAILY 04/30/19 Omeprazole Magnesium [Prilosec] 20 mg PO DAILY 04/30/19 Sennosides [Senna -] 2 tab PO HS 04/30/19 Simvastatin 10 mg PO HS 04/30/19 Albuterol 2.5/Ipratropium 0.5 1 amp NEB RTID amp 05/10/19 [Duoneb -] Apixaban [Eliquis -] 2.5 mg PO BID tablet 05/10/19 Carvedilol [Coreg -] 6.25 mg PO BID tablet 05/10/19 Calcium Carbonate/Vitamin D3 [Eq 1 each PO DAILY 07/09/19 Calcium 500 + Vit D 400 Tab] Cholecalciferol (Vitamin D3) 1,000 unit PO DAILY 07/09/19 [Vitamin D3 -] Docusate Sodium [Colace] 200 mg PO DAILY 07/09/19 Docusate Sodium [Docusate 100 mg] 100 mg PO DAILY 07/09/19 Furosemide [Lasix -] 20 mg PO Q2D@1000 07/09/19 Mirtazapine 22.5 mg PO DAILY 07/09/19 Multivitamins [Tab-A-Vit -] 1 tab PO DAILY 07/09/19 Sacubitril/Valsartan [Entresto 24 1 tab PO HS 07/09/19 mg-26 mg Tablet] Salmeterol Xinafoate [Serevent 50 mcg IH BID 07/09/19 Diskus] Valacyclovir HCl [Valtrex -] 500 mg PO DAILY 07/09/19 Microbiology 07/14/19 11:00 Sputum - Expectorated Gram Stain - Final 07/10/19 09:00 Blood - Peripheral Venous Blood Culture - Preliminary NO GROWTH OBTAINED AFTER 96 HOURS, INCUBATION TO CONTINUE FOR 1 DAYS. 07/10/19 09:13 Blood - Peripheral Venous Blood Culture - Preliminary NO GROWTH OBTAINED AFTER 96 HOURS, INCUBATION TO CONTINUE FOR 1 DAYS. 07/08/19 23:04 Blood - Peripheral Venous Blood Culture - Final NO GROWTH AFTER 5 DAYS INCUBATION 07/08/19 23:04 Blood - Peripheral Venous Blood Culture - Final Staphylococcus Capitis 07/10/19 04:30 Urine For Antigen Detection Legionella Antigen - Final 07/10/19 04:30 Urine For Antigen Detection Streptococcus pneumoniae Antigen (M - Final 07/09/19 01:50 Urine - Urine Clean Catch Urine Culture - Final NO GROWTH OBTAINED ASSESSMENT/PLAN: 79 y/o F, pmh of HFrEF (30-35%), COPD (2L NC), a-flutter (on Eliquis 2.5mg BID) , multiple myeloma, endometrial cancer (s/p hysterectomy) presents w/ sob and productive cough is admitted for sepsis 2/2 CAP with hypotension #Acute hypoxic respiratory failure likely 2/2 to pneumonia and d-chf- symptoms have improved Pt was symptomatic but improved after BiPaP BiPaP settings changed- Rate 22, IPAP15 EPAP5 1st ABG- CO2 retention, 2nd ABG normalized Monitor I&Os and daily wt Keep on BiPaP overnight Dr [place] consulted- appreciate consult- cont abx, bronchodilators, O2, BiPaP CXR- pulmonary b/l pleural changes improved slightly, but otherwise remains unchanged from previous CXR #Sepsis 2/2 to CAP likely cause of Blood tinged sputum cont abx- ceftriaxone and azithromycin D5 Sputum Cx- many gram + cocci in clusters, moderate gram+ cocci in pairs, moderate gram negative bacilli, few polmorpho WBC #HTN Stable BP #CHF Coreg 6.25 Hold- Entresto Lasix 20 daily #A-flutter cont eliquis #DVTppx eliquis FEN sodium controlled diet Dispo: monitor BP, cont Abx, BiPaP overnight Visit type - Emergency Visit Emergency Visit: Yes ED Registration Date: 07/08/19 Care time: The patient presented to the Emergency Department on the above date and was hospitalized for further evaluation of their emergent condition. - New Patient This patient is new to me today: Yes Date on this admission: 07/14/19 - Critical Care Critical Care patient: No - Discharge Referral Referred to [facility] Med P[facility] No ATTENDING PHYSICIAN STATEMENT I saw and evaluated the patient. I reviewed the resident's note and discussed the case with the resident. I agree with the resident's findings and plan as documented. SUBJECTIVE: OBJECTIVE: ASSESSMENT AND PLAN:
[2019-07-14] MEDS ORDERED: ACETAMINOPHEN 325 MG TABLET (FP) PO PRN (20:55)
--- NOTE | 2019-07-14 20:59 | PN ---
Progress Note (short form) - Note Progress Note: - Called by nurse for a low grade fever of 100.5 - BC's done on 05/10 negative, UA Cx negative for legionella/strep on 05/10 - CXR done today showing b/l pleural pulm changes improved from previous - Sputum Cx growing staph/strep - on rocephin - will not reculture given pt has temp <101. - Tylenol 650 given.
[2019-07-14] MEDS: CHLORHEXIDINE GLUCONATE 4% CLEANSER FOR DECOLONIZATION TP SCH (23:30)
[2019-07-14] MEDS: ATORVASTATIN CA 10 MG TABLET (FP) PO SCH (23:30)
[2019-07-14] MEDS: MIRTAZAPINE 15 MG TABLET (FP) PO SCH ×2 (23:31)
[2019-07-15 07:36] LABS: HEMATOCRIT 23.5 % (32.4-45.2); HEMOGLOBIN 7.8 GM/dL (10.7-15.3); MCH 34.7 pg (25.7-33.7); MCHC 33.2 g/dl (32.0-36.0); MEAN CELL VOLUME 104.6 fl (80-96); MEAN PLT VOLUME 8.3 fl (7.5-11.1); PLATELET COUNT 204 K/MM3 (134-434); RBC 2.25 M/mm3 (3.60-5.2); RDW 18.2 % (11.6-15.6); WHITE BLOOD COUNT 3.4 K/mm3 (4.0-10.0)
[2019-07-15] MEDS: ALBUTEROL SO4 2.5/IPRATROPIUM 0.5 INH SOL 3 ML VIAL.NEB. NEB SCH ×3 (08:05→20:48)
[2019-07-15 08:38] LABS: BLOOD UREA NITROGEN 38.9 mg/dL (7-18); CALCIUM 9.2 mg/dL (8.5-10.1); CREATININE 1.3 mg/dL (0.55-1.3); POTASSIUM 3.9 mmol/L (3.5-5.1)
[2019-07-15] MEDS ORDERED: ENOXAPARIN NA (PORCINE) 60 MG/0.6 ML DISP.SYRIN SQ ONE (10:00)
[2019-07-15 10:14] LABS: ARTERIAL BLD GAS O2 SATURATION 98.6 % (95-98); ARTERIAL BLOOD GAS BASE EXCESS 13.4 meq/l (-2-2); ARTERIAL BLOOD GAS PCO2 42.5 mmHg (35-45); ARTERIAL BLOOD GAS PO2 101 mmHg (80-100); ARTERIAL BLOOD GAS pH 7.55 (7.35-7.45)
[2019-07-15 10:18] LABS: ALLENS TEST POSITIVE
--- NOTE | 2019-07-15 10:39 | PN ---
Progress Note, Physician History of Present Illness: PULMONARY ALERT,ON BIPAP,-RESP DISTRESS - Current Medication List Current Medications: Active Medications Acetaminophen (Tylenol -) 650 mg PO Q6H PRN PRN Reason: FEVER Albuterol Sulfate (Ventolin 0.083% Nebulizer Soln -) 1 amp NEB Q1H PRN PRN Reason: SHORT OF BREATH/WHEEZING Last Admin: 07/13/19 16:53 Dose: 1 amp Albuterol/Ipratropium (Duoneb -) 1 amp NEB RTID [facility] Last Admin: 07/15/19 08:05 Dose: 1 amp Apixaban (Eliquis -) 5 mg PO BID [facility] Atorvastatin Calcium (Lipitor -) 10 mg PO HS [facility] Last Admin: 07/14/19 23:30 Dose: 10 mg Calcium Carbonate/Cholecalciferol (Os-Khai 500+D -) 1 tab PO DAILY [facility] Last Admin: 07/14/19 12:52 Dose: 1 tab Carvedilol (Coreg -) 6.25 mg PO BID [facility] Last Admin: 07/14/19 23:30 Dose: 6.25 mg Chlorhexidine Gluconate (Hibiclens For Decolonization -) 1 applic TP HS [facility] Last Admin: 07/14/19 23:30 Dose: Not Given Cholecalciferol (Vitamin D3 -) 1,000 unit PO DAILY [facility] Last Admin: 07/14/19 12:53 Dose: 1,000 unit Cyanocobalamin (Vitamin B12 -) 1,000 mcg PO DAILY [facility] Last Admin: 07/14/19 12:53 Dose: 1,000 mcg Furosemide (Lasix Injection -) 20 mg IVPUSH DAILY [facility] Last Admin: 07/14/19 12:23 Dose: 20 mg Hydromorphone HCl (Dilaudid Vial -) 0.2 mg IVPUSH Q4H PRN PRN Reason: PAIN LEVEL 1-5 Ceftriaxone Sodium 2 gm/ (Dextrose) 100 mls @ 200 mls/hr IVPB DAILY [facility]; Protocol Last Admin: 07/14/19 10:55 Dose: 200 mls/hr Mirtazapine (Remeron -) 15 mg PO HS [facility] Last Admin: 07/14/19 23:31 Dose: Not Given Mirtazapine (Remeron -) 7.5 mg PO HS [facility] Last Admin: 07/14/19 23:31 Dose: Not Given Morphine Sulfate (Morphine Sulfate) 2 mg IVPUSH Q4H PRN PRN Reason: PAIN LEVEL 1 - 3 Valacyclovir HCl (Valtrex -) 500 mg PO DAILY [facility] Last Admin: 07/14/19 12:52 Dose: 500 mg - Objective Vital Signs: Vital Signs Temperature 98.5 F 07/15/19 07:00 Pulse Rate 55 L 07/15/19 07:00 Respiratory Rate 22 H 07/15/19 07:00 Blood Pressure 129/63 07/15/19 07:00 O2 Sat by Pulse Oximetry (%) 98 07/15/19 08:05 Constitutional: Yes: Well Nourished, Calm Eyes: Yes: WNL HENT: Yes: WNL Neck: Yes: WNL Cardiovascular: Yes: Pulse Irregular, S1, S2 Respiratory: Yes: On BiPap, Rhonchi (FEW RHONCHI) Extremities: Yes: WNL Edema: No Labs: CBC, BMP 07/15/19 07:00 07/15/19 07:00 Laboratory Tests 07/15/19 10:00 ABG pH 7.55 H ABG pCO2 at Pt Temp 42.5 ABG pO2 at Pt Temp 101 H ABG HCO3 37.3 H ABG O2 Sat (Measured) 98.6 H Oxygen Flow Rate 50% Vent Mode S/t Problem List - Problems (1) CHF (congestive heart failure) Code(s): I50.9 - HEART FAILURE, UNSPECIFIED Qualifiers: Heart failure type: unspecified Heart failure chronicity: chronic Qualified Code(s): I50.9 - Heart failure, unspecified (2) Hypotension Code(s): I95.9 - HYPOTENSION, UNSPECIFIED Qualifiers: Hypotension type: unspecified hypotension type Qualified Code(s): I95.9 - Hypotension, unspecified (3) Pneumonia Code(s): J18.9 - PNEUMONIA, UNSPECIFIED ORGANISM Qualifiers: Pneumonia type: due to unspecified organism Laterality: right Lung location: lower lobe of lung Qualified Code(s): J18.9 - Pneumonia, unspecified organism (4) Atrial flutter Code(s): I48.92 - UNSPECIFIED ATRIAL FLUTTER (5) Dyspnea Code(s): R06.00 - DYSPNEA, UNSPECIFIED Qualifiers: Dyspnea type: unspecified Qualified Code(s): R06.00 - Dyspnea, unspecified (6) Multiple myeloma Code(s): C90.00 - MULTIPLE MYELOMA NOT HAVING ACHIEVED REMISSION Qualifiers: Multiple myeloma remission status: in remission Qualified Code(s): C90.01 - Multiple myeloma in remission Assessment/Plan Assessment/Plan Septic Shock possibly due to PNA clinically improving Multiple myeloma HFrEF (30-35%) HTN COPD (2L NC) HLD A-flutter (eliquis) Anemia Lasix IVP ABX per ID: ceftriaxone and vanco BiPAP as needed for sat >90% Supplemental 02 Bronchodialators Strict I & O monitor lytes,renal function,h+h F/U ABGS F/U CHEST X-RAYS DR AGUSTIN
[2019-07-15] MEDS: FUROSEMIDE 40 MG/4 ML INJECTABLE VIAL IVPUSH SCH (11:38)
[2019-07-15] MEDS: CALCIUM 500MG/VIT-D 200 UNITS COMBO TABLET (FP) PO SCH (11:39)
[2019-07-15] MEDS: valACYclovir HCL 500 MG TABLET (FP) PO SCH (11:39)
[2019-07-15] MEDS: CYANOCOBALAMIN 1,000 MCG TABLET (FP) PO SCH (11:39)
[2019-07-15] MEDS: CHOLECALCIFEROL (VIT D3) 1,000 UNIT (25 MCG) TABLET PO SCH (11:39)
[2019-07-15] MEDS: CARVEDILOL 6.25 MG TABLET (FP) PO SCH ×2 (11:40→21:46)
--- NOTE | 2019-07-15 11:51 | PN ---
Physical Exam: SUBJECTIVE: Patient seen and examined 79 y/o F, pmh of HFrEF (30-35%), COPD (2L NC), a-flutter (on Eliquis 2.5mg BID) , multiple myeloma, endometrial cancer (s/p hysterectomy) presents w/ sob and productive cough is admitted for sepsis 2/2 CAP with hypotension. Pt today remained lethargic. Pt began to desaturate rapidly off BiPAP. However, pt was conversational and did answer questions. Overnight pt's temp xavier to 100.2. Pt was switched to Levaquin. Denies f/c/n/v/d/sob/chest pain. OBJECTIVE: Vital Signs Period Temp Pulse Resp BP Sys/Salgado Pulse Ox Last 24 Hr 98.5 F-100.2 F 52-100 20-22 90-144/41-69 93-100 GENERAL: Lethargic but responsive. NAD HEAD: Normal with no signs of trauma. EYES: Pupils equal, round and reactive to light, EARS, NOSE, THROAT: oropharynx clear without exudates. Moist mucous membranes. LUNGS: crackles noted b/l HEART: Regular rate and rhythm- hx of a-flutter, normal S1 and S2 without murmur , rub or gallop. ABDOMEN: Soft, nontender, not distended, normoactive bowel sounds, no guarding, UPPER EXTREMITIES: 2+ pulses, warm, well-perfused. No cyanosis. LOWER EXTREMITIES: 2+ pulses, 1+ edema b/l. Left leg has a laceration wound which was accidental as per nursing. NEUROLOGICAL: Minimal speech. SKIN: Warm, dry, normal turgor Laboratory Results - last 24 hr CBC,CMP WBC 3.4 K/mm3 (4.0-10.0) L 07/15/19 07:00 RBC 2.25 M/mm3 (3.60-5.2) L 07/15/19 07:00 Hgb 7.8 GM/dL (10.7-15.3) L 07/15/19 07:00 Hct 23.5 % (32.4-45.2) L D 07/15/19 07:00 MCV 104.6 fl (80-96) H 07/15/19 07:00 MCH 34.7 pg (25.7-33.7) H 07/15/19 07:00 MCHC 33.2 g/dl (32.0-36.0) 07/15/19 07:00 RDW 18.2 % (11.6-15.6) H 07/15/19 07:00 Plt Count 204 K/MM3 (134-434) 07/15/19 07:00 MPV 8.3 fl (7.5-11.1) 07/15/19 07:00 Absolute Neuts (auto) 3.9 K/mm3 (1.5-8.0) 07/12/19 06:00 Total Counted 100 07/08/19 23:04 Neutrophils % 71.2 % (42.8-82.8) 07/12/19 06:00 Neutrophils % (Manual) 81.0 % (42.8-82.8) 07/12/19 06:00 Band Neutrophils % 0.0 % 07/12/19 06:00 Lymphocytes % 8.0 % (8-40) 07/12/19 06:00 Lymphocytes % (Manual) 2.0 % (8-40) L D 07/12/19 06:00 Monocytes % 20.3 % (3.8-10.2) H 07/12/19 06:00 Monocytes % (Manual) 12 % (3.8-10.2) H 07/12/19 06:00 Eosinophils % 0.2 % (0-4.5) D 07/12/19 06:00 Eosinophils % (Manual) 0.0 % (0-4.5) D 07/12/19 06:00 Basophils % 0.3 % (0-2.0) 07/12/19 06:00 Basophils % (Manual) 0.0 % (0-2.0) 07/12/19 06:00 Myelocytes % (Man) 0 % (0-2) D 07/12/19 06:00 Promyelocytes % (Man) 0 % (0-2) 07/12/19 06:00 Blast Cells % (Manual) 0 % (0-0) 07/12/19 06:00 Nucleated RBC % 0 % (0-0) 07/12/19 06:00 Metamyelocytes 0 % (0-2) 07/12/19 06:00 Hypochromia 1+ 07/09/19 06:05 Platelet Estimate Normal 07/12/19 06:00 Anisocytosis 1+ 07/12/19 06:00 Macrocytosis 2+ 07/12/19 06:00 Schistocytes 1+ 07/12/19 06:00 Sodium 140 mmol/L (136-145) 07/15/19 07:00 Potassium 3.9 mmol/L (3.5-5.1) 07/15/19 07:00 Chloride 99 mmol/L (98-107) 07/15/19 07:00 Carbon Dioxide 39 mmol/L (21-32) H 07/15/19 07:00 Anion Gap 2 MMOL/L (8-16) L 07/15/19 07:00 BUN 38.9 mg/dL (7-18) H 07/15/19 07:00 Creatinine 1.3 mg/dL (0.55-1.3) 07/15/19 07:00 Est GFR (CKD-EPI)AfAm 44.56 07/15/19 07:00 Est GFR (CKD-EPI)NonAf 38.44 07/15/19 07:00 Random Glucose 87 mg/dL (74-106) 07/15/19 07:00 Lactic Acid 0.8 mmol/L (0.4-2.0) 07/08/19 23:04 Calcium 9.2 mg/dL (8.5-10.1) 07/15/19 07:00 Phosphorus 2.1 mg/dL (2.5-4.9) L 07/12/19 06:00 Magnesium 2.2 mg/dL (1.8-2.4) 07/13/19 05:30 Total Bilirubin 0.3 mg/dL (0.2-1) 07/14/19 05:20 AST 6 U/L (15-37) L 07/14/19 05:20 ALT 13 U/L (13-61) 07/14/19 05:20 Alkaline Phosphatase 187 U/L (45-117) H 07/14/19 05:20 Troponin I < 0.02 ng/ml (0.00-0.05) 07/08/19 23:04 B-Natriuretic Peptide 3737.4 pg/ml (5-450) H 07/08/19 23:04 Total Protein 6.7 g/dl (6.4-8.2) 07/14/19 05:20 Albumin 2.0 g/dl (3.4-5.0) L 07/14/19 05:20 Active Medications Current Medications Acetaminophen (Tylenol -) 650 mg PO Q6H PRN PRN Reason: FEVER Albuterol Sulfate (Ventolin 0.083% Nebulizer Soln -) 1 amp NEB Q1H PRN PRN Reason: SHORT OF BREATH/WHEEZING Last Admin: 07/13/19 16:53 Dose: 1 amp Albuterol/Ipratropium (Duoneb -) 1 amp NEB RTID [facility] Last Admin: 07/15/19 08:05 Dose: 1 amp Apixaban (Eliquis -) 5 mg PO BID [facility] Atorvastatin Calcium (Lipitor -) 10 mg PO HS [facility] Last Admin: 07/14/19 23:30 Dose: 10 mg Calcium Carbonate/Cholecalciferol (Os-Khai 500+D -) 1 tab PO DAILY [facility] Last Admin: 07/15/19 11:39 Dose: 1 tab Carvedilol (Coreg -) 6.25 mg PO BID [facility] Last Admin: 07/15/19 11:40 Dose: 6.25 mg Chlorhexidine Gluconate (Hibiclens For Decolonization -) 1 applic TP HS [facility] Last Admin: 07/14/19 23:30 Dose: Not Given Cholecalciferol (Vitamin D3 -) 1,000 unit PO DAILY [facility] Last Admin: 07/15/19 11:39 Dose: 1,000 unit Cyanocobalamin (Vitamin B12 -) 1,000 mcg PO DAILY [facility] Last Admin: 07/15/19 11:39 Dose: 1,000 mcg Furosemide (Lasix Injection -) 20 mg IVPUSH DAILY [facility] Last Admin: 07/15/19 11:38 Dose: 20 mg Hydromorphone HCl (Dilaudid Vial -) 0.2 mg IVPUSH Q4H PRN PRN Reason: PAIN LEVEL 1-5 Ceftriaxone Sodium 2 gm/ (Dextrose) 100 mls @ 200 mls/hr IVPB DAILY [facility]; Protocol Last Admin: 07/14/19 10:55 Dose: 200 mls/hr Mirtazapine (Remeron -) 15 mg PO HS [facility] Last Admin: 07/14/19 23:31 Dose: Not Given Mirtazapine (Remeron -) 7.5 mg PO HS [facility] Last Admin: 07/14/19 23:31 Dose: Not Given Morphine Sulfate (Morphine Sulfate) 2 mg IVPUSH Q4H PRN PRN Reason: PAIN LEVEL 1 - 3 Valacyclovir HCl (Valtrex -) 500 mg PO DAILY [facility] Last Admin: 07/15/19 11:39 Dose: 500 mg Home Medications Medication Instructions Recorded Cyanocobalamin [Vitamin B12 -] 1,000 mcg PO DAILY 04/30/19 Metoprolol Tartrate 25 mg PO BID 04/30/19 Mirtazapine 22.5 mg PO DAILY 04/30/19 Omeprazole Magnesium [Prilosec] 20 mg PO DAILY 04/30/19 Sennosides [Senna -] 2 tab PO HS 04/30/19 Simvastatin 10 mg PO HS 04/30/19 Albuterol 2.5/Ipratropium 0.5 1 amp NEB RTID amp 05/10/19 [Duoneb -] Apixaban [Eliquis -] 2.5 mg PO BID tablet 05/10/19 Carvedilol [Coreg -] 6.25 mg PO BID tablet 05/10/19 Calcium Carbonate/Vitamin D3 [Eq 1 each PO DAILY 07/09/19 Calcium 500 + Vit D 400 Tab] Cholecalciferol (Vitamin D3) 1,000 unit PO DAILY 07/09/19 [Vitamin D3 -] Docusate Sodium [Colace] 200 mg PO DAILY 07/09/19 Docusate Sodium [Docusate 100 mg] 100 mg PO DAILY 07/09/19 Furosemide [Lasix -] 20 mg PO Q2D@1000 07/09/19 Mirtazapine 22.5 mg PO DAILY 07/09/19 Multivitamins [Tab-A-Vit -] 1 tab PO DAILY 07/09/19 Sacubitril/Valsartan [Entresto 24 1 tab PO HS 07/09/19 mg-26 mg Tablet] Salmeterol Xinafoate [Serevent 50 mcg IH BID 07/09/19 Diskus] Valacyclovir HCl [Valtrex -] 500 mg PO DAILY 07/09/19 Microbiology 07/10/19 09:00 Blood - Peripheral Venous Blood Culture - Final NO GROWTH AFTER 5 DAYS INCUBATION 07/10/19 09:13 Blood - Peripheral Venous Blood Culture - Final NO GROWTH AFTER 5 DAYS INCUBATION 07/14/19 11:00 Sputum - Expectorated Gram Stain - Final 07/08/19 23:04 Blood - Peripheral Venous Blood Culture - Final NO GROWTH AFTER 5 DAYS INCUBATION 07/08/19 23:04 Blood - Peripheral Venous Blood Culture - Final Staphylococcus Capitis 07/10/19 04:30 Urine For Antigen Detection Legionella Antigen - Final 07/10/19 04:30 Urine For Antigen Detection Streptococcus pneumoniae Antigen (M - Final 07/09/19 01:50 Urine - Urine Clean Catch Urine Culture - Final NO GROWTH OBTAINED ASSESSMENT/PLAN: 79 y/o F, pmh of HFrEF (30-35%), COPD (2L NC), a-flutter (on Eliquis 2.5mg BID) , multiple myeloma, endometrial cancer (s/p hysterectomy) presents w/ sob and productive cough is admitted for sepsis 2/2 CAP with hypotension #Acute hypoxic respiratory failure likely 2/2 to pneumonia and d-chf- symptoms have improved BiPaP settings changed- Rate 22, IPAP16 EPAP5 Keep on BiPaP overnight #Sepsis 2/2 to CAP likely cause of Blood tinged sputum cont abx- ceftriaxoneD2 and azithromycin D7 Sputum Cx- many gram + cocci in clusters, moderate gram+ cocci in pairs, moderate gram negative bacilli, few polmorpho WBC #HTN Stable BP #CHF Hold- Entresto Increased to Lasix 40 daily Monitor I&Os and daily wt #A-flutter eliquis changed to 5 mg One dose of 60mg Lovenox given #DVTppx eliquis FEN sodium controlled diet Dispo: monitor BP, cont Abx, BiPaP overnight Visit type - Emergency Visit Emergency Visit: Yes ED Registration Date: 07/08/19 Care time: The patient presented to the Emergency Department on the above date and was hospitalized for further evaluation of their emergent condition. - New Patient This patient is new to me today: Yes Date on this admission: 07/17/19 - Critical Care Critical Care patient: No - Discharge Referral Referred to [facility] Med P.C.: No ATTENDING PHYSICIAN STATEMENT I saw and evaluated the patient. I reviewed the resident's note and discussed the case with the resident. I agree with the resident's findings and plan as documented. SUBJECTIVE: OBJECTIVE: ASSESSMENT AND PLAN:
[2019-07-15] MEDS: CEFTRIAXONE 2 GM in DEXTROSE 5%-WATER 100 ML IVPB SCH (13:00)
--- NOTE | 2019-07-15 15:38 | PN ---
Progress Note (short form) - Note Progress Note: on bipap Vital Signs Period Temp Pulse Resp BP Sys/Salgado Pulse Ox Last 24 Hr 98.4 F-100.2 F 52-100 20-22 100-144/49-69 93-100 cor-rrr lungs decreased bs at bases abd soft nt ext no edema +levin CBC, BMP 07/15/19 07:00 07/15/19 07:00 Microbiology 07/14/19 11:00 Sputum - Expectorated Gram Stain - Final 07/14/19 11:00 Sputum - Expectorated Sputum Culture - Preliminary NORMAL RESPIRATORY JENISE 07/10/19 09:00 Blood - Peripheral Venous Blood Culture - Final NO GROWTH AFTER 5 DAYS INCUBATION 07/10/19 09:13 Blood - Peripheral Venous Blood Culture - Final NO GROWTH AFTER 5 DAYS INCUBATION 07/08/19 23:04 Blood - Peripheral Venous Blood Culture - Final NO GROWTH AFTER 5 DAYS INCUBATION 07/08/19 23:04 Blood - Peripheral Venous Blood Culture - Final Staphylococcus Capitis 07/10/19 04:30 Urine For Antigen Detection Legionella Antigen - Final 07/10/19 04:30 Urine For Antigen Detection Streptococcus pneumoniae Antigen (M - Final 07/09/19 01:50 Urine - Urine Clean Catch Urine Culture - Final NO GROWTH OBTAINED a/p pneumonia blood culture is contaminant SCN one bottle-no need for vancomycin chf-consider gentle diuresis myltiple myeloma ckd afib continue ceftriaxone day #7 Problem List - Problems (1) Sepsis Code(s): A41.9 - SEPSIS, UNSPECIFIED ORGANISM (2) Pneumonia Code(s): J18.9 - PNEUMONIA, UNSPECIFIED ORGANISM Qualifiers: Pneumonia type: due to unspecified organism Laterality: right Lung location: lower lobe of lung Qualified Code(s): J18.9 - Pneumonia, unspecified organism (3) Bacteremia Code(s): R78.81 - BACTEREMIA (4) Multiple myeloma Code(s): C90.00 - MULTIPLE MYELOMA NOT HAVING ACHIEVED REMISSION Qualifiers: Multiple myeloma remission status: in remission Qualified Code(s): C90.01 - Multiple myeloma in remission (5) CKD (chronic kidney disease) Code(s): N18.9 - CHRONIC KIDNEY DISEASE, UNSPECIFIED
--- NOTE | 2019-07-15 17:40 | PN ---
Teaching Attending Note Name of Resident: Fco Schreiber ATTENDING PHYSICIAN STATEMENT I saw and evaluated the patient. I reviewed the resident's note and discussed the case with the resident. I agree with the resident's findings and plan as documented. SUBJECTIVE: Patient is unarousable, on Bipap now. will increase the rate. Vital Signs Temperature 98.5 F 07/15/19 07:00 Pulse Rate 55 L 07/15/19 07:00 Respiratory Rate 22 H 07/15/19 07:00 Blood Pressure 129/63 07/15/19 07:00 O2 Sat by Pulse Oximetry (%) 98 07/15/19 08:05 GENERAL: The patient is arousable but with difficulty. HEAD: Normal with no signs of trauma. EYES: PERRL, extraocular movements intact, sclera anicteric, conjunctiva clear. ENT: Ears normal, oropharynx clear without exudates, moist mucous membranes. NECK: Trachea midline, full range of motion, supple. LUNGS: decreased Breath sounds BL, no wheezes, no crackles, no accessory muscle use. HEART: Regular rate and rhythm, S1, S2 without murmur, rub or gallop. 3/6 diastolic murmur at RUSB and best heard at LLSB. ABDOMEN: Soft, nontender, nondistended, normoactive bowel sounds, no guarding, no rebound, no hepatosplenomegaly, no masses. EXTREMITIES: 2+ pulses, warm, well-perfused, NEUROLOGICAL: Cranial nerves II through XII grossly intact. Normal speech, gait not observed. PSYCH: Normal mood, normal affect. SKIN: Warm, dry, normal turgor, no rashes or lesions noted BCD WBC 5.5 K/mm3 (4.0-10.0) 07/14/19 05:20 RBC 2.61 M/mm3 (3.60-5.2) L 07/14/19 05:20 Hgb 9.0 GM/dL (10.7-15.3) L 07/14/19 05:20 Hct 28.4 % (32.4-45.2) L 07/14/19 05:20 MCV 108.8 fl (80-96) H 07/14/19 05:20 MCHC 31.6 g/dl (32.0-36.0) L 07/14/19 05:20 RDW 18.4 % (11.6-15.6) H 07/14/19 05:20 Plt Count 221 K/MM3 (134-434) D 07/14/19 05:20 MPV 8.6 fl (7.5-11.1) 07/14/19 05:20 CMP Sodium 139 mmol/L (136-145) 07/14/19 05:20 Potassium 4.4 mmol/L (3.5-5.1) 07/14/19 05:20 Chloride 100 mmol/L (98-107) 07/14/19 05:20 Carbon Dioxide 37 mmol/L (21-32) H 07/14/19 05:20 Anion Gap 3 MMOL/L (8-16) L 07/14/19 05:20 BUN 31.8 mg/dL (7-18) H 07/14/19 05:20 Creatinine 1.3 mg/dL (0.55-1.3) 07/14/19 05:20 Random Glucose 112 mg/dL (74-106) H 07/14/19 05:20 Calcium 9.5 mg/dL (8.5-10.1) 07/14/19 05:20 Total Bilirubin 0.3 mg/dL (0.2-1) 07/14/19 05:20 AST 6 U/L (15-37) L 07/14/19 05:20 ALT 13 U/L (13-61) 07/14/19 05:20 Alkaline Phosphatase 187 U/L (45-117) H 07/14/19 05:20 Total Protein 6.7 g/dl (6.4-8.2) 07/14/19 05:20 Albumin 2.0 g/dl (3.4-5.0) L 07/14/19 05:20 CARDIAC ENZYMES Troponin I < 0.02 ng/ml (0.00-0.05) 07/08/19 23:04 Current Medications Generic Name Dose Route Start Last Admin Trade Name Freq PRN Reason Stop Dose Admin Albuterol Sulfate 1 amp 07/12/19 18:10 07/13/19 16:53 Ventolin 0.083% Nebulizer Soln - NEB 1 amp Q1H PRN Administration SHORT OF BREATH/WHEEZING Albuterol/Ipratropium 1 amp 07/12/19 20:00 07/13/19 20:13 Duoneb - NEB 1 amp RTID [facility] Administration Apixaban 2.5 mg 07/12/19 22:00 07/13/19 22:01 Eliquis - PO 2.5 mg BID [facility] Administration Atorvastatin Calcium 10 mg 07/12/19 22:00 07/13/19 22:01 Lipitor - PO 10 mg HS [facility] Administration Calcium Carbonate/Cholecalciferol 1 tab 07/13/19 10:00 07/13/19 10:27 Os-Khai 500+D - PO 1 tab DAILY [facility] Administration Carvedilol 6.25 mg 07/13/19 10:56 07/13/19 22:01 Coreg - PO 6.25 mg BID [facility] Administration Chlorhexidine Gluconate 1 applic 07/12/19 22:00 07/13/19 22:07 Hibiclens For Decolonization - TP Not Given HS [facility] Cholecalciferol 1,000 unit 07/13/19 10:00 07/13/19 10:27 Vitamin D3 - PO 1,000 unit DAILY [facility] Administration Cyanocobalamin 1,000 mcg 07/13/19 10:00 07/13/19 10:26 Vitamin B12 - PO 1,000 mcg DAILY [facility] Administration Furosemide 20 mg 07/14/19 10:00 Lasix Injection - IVPUSH DAILY [facility] Hydromorphone HCl 0.2 mg 07/12/19 18:10 Dilaudid Vial - IVPUSH Q4H PRN PAIN LEVEL 1-5 Azithromycin 500 mg in 250 mls @ 250 mls/hr 07/13/19 10:00 07/13/19 10:24 Zithromax 500mg Ivpb (Pre-Docked) IVPB 250 mls/hr DAILY [facility] Administration Ceftriaxone Sodium 2 gm/ 100 mls @ 200 mls/hr 07/13/19 10:00 07/13/19 10:24 Dextrose IVPB 200 mls/hr DAILY [facility] Administration Protocol Mirtazapine 15 mg 07/12/19 22:00 07/13/19 22:01 Remeron - PO 15 mg HS [facility] Administration Mirtazapine 7.5 mg 07/12/19 22:00 07/13/19 22:01 Remeron - PO 7.5 mg HS [facility] Administration Morphine Sulfate 2 mg 07/12/19 18:10 Morphine Sulfate IVPUSH Q4H PRN PAIN LEVEL 1 - 3 Mupirocin 1 applic 07/12/19 22:00 07/13/19 22:01 Bactroban Ointment (For Decolonization) - NS 07/14/19 09:59 Not Given BID [facility] Valacyclovir HCl 500 mg 07/13/19 10:00 07/13/19 10:25 Valtrex - PO 500 mg DAILY [facility] Administration Home Medications Medication Instructions Recorded Cyanocobalamin [Vitamin B12 -] 1,000 mcg PO DAILY 04/30/19 Metoprolol Tartrate 25 mg PO BID 04/30/19 Mirtazapine 22.5 mg PO DAILY 04/30/19 Omeprazole Magnesium [Prilosec] 20 mg PO DAILY 04/30/19 Sennosides [Senna -] 2 tab PO HS 04/30/19 Simvastatin 10 mg PO HS 04/30/19 Albuterol 2.5/Ipratropium 0.5 1 amp NEB RTID amp 05/10/19 [Duoneb -] Apixaban [Eliquis -] 2.5 mg PO BID tablet 05/10/19 Carvedilol [Coreg -] 6.25 mg PO BID tablet 05/10/19 Calcium Carbonate/Vitamin D3 [Eq 1 each PO DAILY 07/09/19 Calcium 500 + Vit D 400 Tab] Cholecalciferol (Vitamin D3) 1,000 unit PO DAILY 07/09/19 [Vitamin D3 -] Docusate Sodium [Colace] 200 mg PO DAILY 07/09/19 Docusate Sodium [Docusate 100 mg] 100 mg PO DAILY 07/09/19 Furosemide [Lasix -] 20 mg PO Q2D@1000 07/09/19 Mirtazapine 22.5 mg PO DAILY 07/09/19 Multivitamins [Tab-A-Vit -] 1 tab PO DAILY 07/09/19 Sacubitril/Valsartan [Entresto 24 1 tab PO HS 07/09/19 mg-26 mg Tablet] Salmeterol Xinafoate [Serevent 50 mcg IH BID 07/09/19 Diskus] Valacyclovir HCl [Valtrex -] 500 mg PO DAILY 07/09/19 ASSESSMENT AND PLAN: Patient is an 79yo female with Pmhx of MM, on chemo ( last 07/01), HL, A flutter on eliquis, and endometrial cancer s/p hysterectomy who presented with fever and cough with SOB. She was found to have PNA and septic shock. # Acute hypoxic hypercapneic respiratory failure: due to PNA / Acute diastolic heart failure improved , continue continuos BIPAP since patient is barely arousable, pulm. in the case. repeat ABG elevated Pco2 , katerina increase the rate of bipap and reduce Fio2 to 40% from 50%, discussed with dr [place] # Acute diastolic HF: on lasix continue , I's & Os. # B/l CAP: on ceftriaxone and azithro. day 5 # s/p Septic shock resolved. off pressors now # H/o HTN: resume coreg , resume Entresto when appropriate # h/o A flutter: Cont eliquis , resume low dose coreg DVT x. Eliquis critical care of 35min
[2019-07-15] MEDS: CHLORHEXIDINE GLUCONATE 4% CLEANSER FOR DECOLONIZATION TP SCH (21:45)
[2019-07-15] MEDS: ATORVASTATIN CA 10 MG TABLET (FP) PO SCH (21:46)
[2019-07-15] MEDS: APIXABAN 5 MG TABLET PO SCH (21:46)
[2019-07-15] MEDS: MIRTAZAPINE 15 MG TABLET (FP) PO SCH ×2 (21:49)
[2019-07-16 06:54] LABS: HEMATOCRIT 23.8 % (32.4-45.2); HEMOGLOBIN 7.7 GM/dL (10.7-15.3); MCH 33.9 pg (25.7-33.7); MCHC 32.3 g/dl (32.0-36.0); PLATELET COUNT 199 K/MM3 (134-434); RBC 2.27 M/mm3 (3.60-5.2); RDW 18.1 % (11.6-15.6); WHITE BLOOD COUNT 2.7 K/mm3 (4.0-10.0)
[2019-07-16 07:31] LABS: ALBUMIN 1.9 g/dl (3.4-5.0); BILIRUBIN,TOTAL 0.7 mg/dL (0.2-1); BLOOD UREA NITROGEN 44.4 mg/dL (7-18); CALCIUM 9.3 mg/dL (8.5-10.1); CREATININE 1.2 mg/dL (0.55-1.3); POTASSIUM 3.9 mmol/L (3.5-5.1); TOT PROT 5.9 g/dl (6.4-8.2)
[2019-07-16] MEDS: ALBUTEROL SO4 2.5/IPRATROPIUM 0.5 INH SOL 3 ML VIAL.NEB. NEB SCH ×3 (08:49→21:22)
[2019-07-16] MEDS ORDERED: DEXTROSE 5%-WATER 100 ML IVPB ONE (09:04)
[2019-07-16] MEDS: CYANOCOBALAMIN 1,000 MCG TABLET (FP) PO SCH (09:09)
[2019-07-16] MEDS: CEFTRIAXONE 2 GM in DEXTROSE 5%-WATER 100 ML IVPB SCH (09:09)
[2019-07-16] MEDS: APIXABAN 5 MG TABLET PO SCH ×2 (09:09→21:25)
[2019-07-16] MEDS: valACYclovir HCL 500 MG TABLET (FP) PO SCH (09:09)
[2019-07-16] MEDS: CALCIUM 500MG/VIT-D 200 UNITS COMBO TABLET (FP) PO SCH (09:09)
[2019-07-16] MEDS: CHOLECALCIFEROL (VIT D3) 1,000 UNIT (25 MCG) TABLET PO SCH (09:09)
[2019-07-16] MEDS: CARVEDILOL 6.25 MG TABLET (FP) PO SCH ×2 (09:09→21:25)
[2019-07-16] MEDS: FUROSEMIDE 40 MG/4 ML INJECTABLE VIAL IVPUSH SCH (10:22)
--- NOTE | 2019-07-16 11:36 | PN ---
Progress Note, Physician History of Present Illness: PULMONARY ALERT,NO DISTRESS,ON NASAL CANNULA - Current Medication List Current Medications: Active Medications Acetaminophen (Tylenol -) 650 mg PO Q6H PRN PRN Reason: FEVER Albuterol Sulfate (Ventolin 0.083% Nebulizer Soln -) 1 amp NEB Q1H PRN PRN Reason: SHORT OF BREATH/WHEEZING Last Admin: 07/13/19 16:53 Dose: 1 amp Albuterol/Ipratropium (Duoneb -) 1 amp NEB RTID [facility] Last Admin: 07/16/19 08:49 Dose: 1 amp Apixaban (Eliquis -) 5 mg PO BID [facility] Last Admin: 07/16/19 09:09 Dose: 5 mg Atorvastatin Calcium (Lipitor -) 10 mg PO HS [facility] Last Admin: 07/15/19 21:46 Dose: 10 mg Calcium Carbonate/Cholecalciferol (Os-Khai 500+D -) 1 tab PO DAILY [facility] Last Admin: 07/16/19 09:09 Dose: 1 tab Carvedilol (Coreg -) 6.25 mg PO BID [facility] Last Admin: 07/16/19 09:09 Dose: 6.25 mg Chlorhexidine Gluconate (Hibiclens For Decolonization -) 1 applic TP HS [facility] Last Admin: 07/15/19 21:45 Dose: Not Given Cholecalciferol (Vitamin D3 -) 1,000 unit PO DAILY [facility] Last Admin: 07/16/19 09:09 Dose: 1,000 unit Cyanocobalamin (Vitamin B12 -) 1,000 mcg PO DAILY [facility] Last Admin: 07/16/19 09:09 Dose: 1,000 mcg Furosemide (Lasix Injection -) 40 mg IVPUSH DAILY [facility] Last Admin: 07/16/19 10:22 Dose: 40 mg Ceftriaxone Sodium 2 gm/ (Dextrose) 100 mls @ 200 mls/hr IVPB DAILY [facility]; Protocol Last Admin: 07/16/19 09:09 Dose: 200 mls/hr Mirtazapine (Remeron -) 15 mg PO HS [facility] Last Admin: 07/15/19 21:49 Dose: Not Given Mirtazapine (Remeron -) 7.5 mg PO HS [facility] Last Admin: 07/15/19 21:49 Dose: Not Given Valacyclovir HCl (Valtrex -) 500 mg PO DAILY [facility] Last Admin: 07/16/19 09:09 Dose: 500 mg - Objective Vital Signs: Vital Signs Temperature 99.1 F 07/16/19 08:00 Pulse Rate 69 07/16/19 08:00 Respiratory Rate 20 07/16/19 09:00 Blood Pressure 103/49 L 07/16/19 08:00 O2 Sat by Pulse Oximetry (%) 94 L 07/16/19 09:00 Constitutional: Yes: Well Nourished, Calm Eyes: Yes: WNL HENT: Yes: WNL Neck: Yes: WNL Cardiovascular: Yes: WNL Respiratory: Yes: Rales (KAYLAH CRACKLES 1/3 UP) Gastrointestinal: Yes: Normal Bowel Sounds, Soft Extremities: Yes: WNL Edema: Yes Labs: CBC, BMP 07/16/19 06:20 07/16/19 06:20 Problem List - Problems (1) CHF (congestive heart failure) Code(s): I50.9 - HEART FAILURE, UNSPECIFIED Qualifiers: Heart failure type: unspecified Heart failure chronicity: chronic Qualified Code(s): I50.9 - Heart failure, unspecified (2) Hypotension Code(s): I95.9 - HYPOTENSION, UNSPECIFIED Qualifiers: Hypotension type: unspecified hypotension type Qualified Code(s): I95.9 - Hypotension, unspecified (3) Pneumonia Code(s): J18.9 - PNEUMONIA, UNSPECIFIED ORGANISM Qualifiers: Pneumonia type: due to unspecified organism Laterality: right Lung location: lower lobe of lung Qualified Code(s): J18.9 - Pneumonia, unspecified organism (4) Atrial flutter Code(s): I48.92 - UNSPECIFIED ATRIAL FLUTTER (5) Dyspnea Code(s): R06.00 - DYSPNEA, UNSPECIFIED Qualifiers: Dyspnea type: unspecified Qualified Code(s): R06.00 - Dyspnea, unspecified (6) Multiple myeloma Code(s): C90.00 - MULTIPLE MYELOMA NOT HAVING ACHIEVED REMISSION Qualifiers: Multiple myeloma remission status: in remission Qualified Code(s): C90.01 - Multiple myeloma in remission Assessment/Plan Assessment/Plan Septic Shock possibly due to PNA clinically improved Acute respiratory failure improved Multiple myeloma HFrEF (30-35%) HTN COPD (2L NC) HLD A-flutter (eliquis) Anemia Lasix ABX per ID: ceftriaxone and vanco BiPAP as needed for sat >90% Supplemental 02 Bronchodialators Strict I & O monitor lytes,renal function,h+h F/U CHEST X-RAYS f/u abgs prn DR AGUSTIN
--- NOTE | 2019-07-16 14:11 | PN ---
Progress Note (short form) - Note Progress Note: on nasal canulla no fevers alert Vital Signs Period Temp Pulse Resp BP Sys/Salgado Pulse Ox Last 24 Hr 98.4 F-99.2 F 69-84 18-20 100-126/47-63 90-100 cor-rrr lungs decreased bs at bases abd soft,nt ext no edema CBC, BMP 07/16/19 06:20 07/16/19 06:20 Microbiology 07/14/19 11:00 Sputum - Expectorated Gram Stain - Final 07/14/19 11:00 Sputum - Expectorated Sputum Culture - Final NORMAL RESPIRATORY JENISE 07/10/19 09:00 Blood - Peripheral Venous Blood Culture - Final NO GROWTH AFTER 5 DAYS INCUBATION 07/10/19 09:13 Blood - Peripheral Venous Blood Culture - Final NO GROWTH AFTER 5 DAYS INCUBATION 07/08/19 23:04 Blood - Peripheral Venous Blood Culture - Final NO GROWTH AFTER 5 DAYS INCUBATION 07/08/19 23:04 Blood - Peripheral Venous Blood Culture - Final Staphylococcus Capitis 07/10/19 04:30 Urine For Antigen Detection Legionella Antigen - Final 07/10/19 04:30 Urine For Antigen Detection Streptococcus pneumoniae Antigen (M - Final 07/09/19 01:50 Urine - Urine Clean Catch Urine Culture - Final NO GROWTH OBTAINED Active Medications Acetaminophen (Tylenol -) 650 mg PO Q6H PRN PRN Reason: FEVER Albuterol Sulfate (Ventolin 0.083% Nebulizer Soln -) 1 amp NEB Q1H PRN PRN Reason: SHORT OF BREATH/WHEEZING Last Admin: 07/13/19 16:53 Dose: 1 amp Albuterol/Ipratropium (Duoneb -) 1 amp NEB RTID [facility] Last Admin: 07/16/19 08:49 Dose: 1 amp Apixaban (Eliquis -) 5 mg PO BID [facility] Last Admin: 07/16/19 09:09 Dose: 5 mg Atorvastatin Calcium (Lipitor -) 10 mg PO HS [facility] Last Admin: 07/15/19 21:46 Dose: 10 mg Calcium Carbonate/Cholecalciferol (Os-Khai 500+D -) 1 tab PO DAILY [facility] Last Admin: 07/16/19 09:09 Dose: 1 tab Carvedilol (Coreg -) 6.25 mg PO BID [facility] Last Admin: 07/16/19 09:09 Dose: 6.25 mg Chlorhexidine Gluconate (Hibiclens For Decolonization -) 1 applic TP HS [facility] Last Admin: 07/15/19 21:45 Dose: Not Given Cholecalciferol (Vitamin D3 -) 1,000 unit PO DAILY [facility] Last Admin: 07/16/19 09:09 Dose: 1,000 unit Cyanocobalamin (Vitamin B12 -) 1,000 mcg PO DAILY [facility] Last Admin: 07/16/19 09:09 Dose: 1,000 mcg Furosemide (Lasix Injection -) 40 mg IVPUSH DAILY [facility] Last Admin: 07/16/19 10:22 Dose: 40 mg Ceftriaxone Sodium 2 gm/ (Dextrose) 100 mls @ 200 mls/hr IVPB DAILY [facility]; Protocol Last Admin: 07/16/19 09:09 Dose: 200 mls/hr Mirtazapine (Remeron -) 15 mg PO HS [facility] Last Admin: 07/15/19 21:49 Dose: Not Given Mirtazapine (Remeron -) 7.5 mg PO HS [facility] Last Admin: 07/15/19 21:49 Dose: Not Given Valacyclovir HCl (Valtrex -) 500 mg PO DAILY [facility] Last Admin: 07/16/19 09:09 Dose: 500 mg a/p pneumonia-has completed 8 days rocephin and 5 days zithromax, will d/c antibiotics and observe blood culture is contaminant SCN one bottle-no need for vancomycin chf-continue gentle diuresis myltiple myeloma ckd afib Problem List - Problems (1) Sepsis Code(s): A41.9 - SEPSIS, UNSPECIFIED ORGANISM (2) Pneumonia Code(s): J18.9 - PNEUMONIA, UNSPECIFIED ORGANISM Qualifiers: Pneumonia type: due to unspecified organism Laterality: right Lung location: lower lobe of lung Qualified Code(s): J18.9 - Pneumonia, unspecified organism (3) Bacteremia Code(s): R78.81 - BACTEREMIA (4) Multiple myeloma Code(s): C90.00 - MULTIPLE MYELOMA NOT HAVING ACHIEVED REMISSION Qualifiers: Multiple myeloma remission status: in remission Qualified Code(s): C90.01 - Multiple myeloma in remission (5) CKD (chronic kidney disease) Code(s): N18.9 - CHRONIC KIDNEY DISEASE, UNSPECIFIED
--- NOTE | 2019-07-16 14:51 | PN ---
Physical Exam: SUBJECTIVE: Patient seen and examined 79 y/o F, pmh of HFrEF (30-35%), COPD (2L NC), a-flutter (on Eliquis 2.5mg BID) , multiple myeloma, endometrial cancer (s/p hysterectomy) presents w/ sob and productive cough is admitted for sepsis 2/2 CAP with hypotension. Pt doing much better today. Pt is responsive, communicating and states she has improved. Pt c/ o of no overnight events or issues. Afebrile and asymptomatic. Denies f/c/n/v/d/ sob/chest pain OBJECTIVE: Vital Signs Period Temp Pulse Resp BP Sys/Salgado Pulse Ox Last 24 Hr 98.4 F-99.2 F 69-84 18-20 100-126/47-63 90-100 GENERAL: Cooperative, conversational. NAD HEAD: Normal with no signs of trauma. EYES: Pupils equal, round and reactive to light, EARS, NOSE, THROAT: oropharynx clear without exudates. Moist mucous membranes. LUNGS: crackles noted- improved HEART: Regular rate and rhythm- hx of a-flutter, normal S1 and S2 without murmur , rub or gallop. ABDOMEN: Soft, nontender, not distended, normoactive bowel sounds, no guarding, UPPER EXTREMITIES: 2+ pulses, warm, well-perfused. No cyanosis. LOWER EXTREMITIES: 2+ pulses, 1+ edema b/l. Left leg has a laceration wound which was accidental as per nursing. NEUROLOGICAL: Minimal speech. SKIN: Warm, dry, normal turgor Laboratory Results - last 24 hr 07/16/19 07/16/19 07/16/19 06:20 06:20 14:00 WBC 2.7 L RBC 2.27 L Hgb 7.7 L Hct 23.8 L MCV 105.0 H MCH 33.9 H MCHC 32.3 RDW 18.1 H Plt Count 199 MPV 8.0 Sodium 141 Potassium 3.9 Chloride 99 Carbon Dioxide 41 H Anion Gap 0 L BUN 44.4 H Creatinine 1.2 Est GFR (CKD-EPI)AfAm 49.08 Est GFR (CKD-EPI)NonAf 42.35 Random Glucose 86 Calcium 9.3 Iron 70 TIBC 216 L Iron Saturation 32 Unsaturated IBC 146 L Ferritin 225.0 Total Bilirubin 0.7 AST 7 L ALT 9 L Alkaline Phosphatase 129 H Total Protein 5.9 L Albumin 1.9 L Stool Occult Blood Negative Active Medications Current Medications Acetaminophen (Tylenol -) 650 mg PO Q6H PRN PRN Reason: FEVER Albuterol Sulfate (Ventolin 0.083% Nebulizer Soln -) 1 amp NEB Q1H PRN PRN Reason: SHORT OF BREATH/WHEEZING Last Admin: 07/13/19 16:53 Dose: 1 amp Albuterol/Ipratropium (Duoneb -) 1 amp NEB RTID [facility] Last Admin: 07/16/19 08:49 Dose: 1 amp Apixaban (Eliquis -) 5 mg PO BID [facility] Last Admin: 07/16/19 09:09 Dose: 5 mg Atorvastatin Calcium (Lipitor -) 10 mg PO HS [facility] Last Admin: 07/15/19 21:46 Dose: 10 mg Calcium Carbonate/Cholecalciferol (Os-Khai 500+D -) 1 tab PO DAILY [facility] Last Admin: 07/16/19 09:09 Dose: 1 tab Carvedilol (Coreg -) 6.25 mg PO BID [facility] Last Admin: 07/16/19 09:09 Dose: 6.25 mg Chlorhexidine Gluconate (Hibiclens For Decolonization -) 1 applic TP HS [facility] Last Admin: 07/15/19 21:45 Dose: Not Given Cholecalciferol (Vitamin D3 -) 1,000 unit PO DAILY [facility] Last Admin: 07/16/19 09:09 Dose: 1,000 unit Cyanocobalamin (Vitamin B12 -) 1,000 mcg PO DAILY [facility] Last Admin: 07/16/19 09:09 Dose: 1,000 mcg Furosemide (Lasix Injection -) 40 mg IVPUSH DAILY [facility] Last Admin: 07/16/19 10:22 Dose: 40 mg Ceftriaxone Sodium 2 gm/ (Dextrose) 100 mls @ 200 mls/hr IVPB DAILY [facility]; Protocol Last Admin: 07/16/19 09:09 Dose: 200 mls/hr Mirtazapine (Remeron -) 15 mg PO HS [facility] Last Admin: 07/15/19 21:49 Dose: Not Given Mirtazapine (Remeron -) 7.5 mg PO HS [facility] Last Admin: 07/15/19 21:49 Dose: Not Given Valacyclovir HCl (Valtrex -) 500 mg PO DAILY [facility] Last Admin: 07/16/19 09:09 Dose: 500 mg Home Medications Medication Instructions Recorded Cyanocobalamin [Vitamin B12 -] 1,000 mcg PO DAILY 04/30/19 Metoprolol Tartrate 25 mg PO BID 04/30/19 Mirtazapine 22.5 mg PO DAILY 04/30/19 Omeprazole Magnesium [Prilosec] 20 mg PO DAILY 04/30/19 Sennosides [Senna -] 2 tab PO HS 04/30/19 Simvastatin 10 mg PO HS 04/30/19 Albuterol 2.5/Ipratropium 0.5 1 amp NEB RTID amp 05/10/19 [Duoneb -] Apixaban [Eliquis -] 2.5 mg PO BID tablet 05/10/19 Carvedilol [Coreg -] 6.25 mg PO BID tablet 05/10/19 Calcium Carbonate/Vitamin D3 [Eq 1 each PO DAILY 07/09/19 Calcium 500 + Vit D 400 Tab] Cholecalciferol (Vitamin D3) 1,000 unit PO DAILY 07/09/19 [Vitamin D3 -] Docusate Sodium [Colace] 200 mg PO DAILY 07/09/19 Docusate Sodium [Docusate 100 mg] 100 mg PO DAILY 07/09/19 Furosemide [Lasix -] 20 mg PO Q2D@1000 07/09/19 Mirtazapine 22.5 mg PO DAILY 07/09/19 Multivitamins [Tab-A-Vit -] 1 tab PO DAILY 07/09/19 Sacubitril/Valsartan [Entresto 24 1 tab PO HS 07/09/19 mg-26 mg Tablet] Salmeterol Xinafoate [Serevent 50 mcg IH BID 07/09/19 Diskus] Valacyclovir HCl [Valtrex -] 500 mg PO DAILY 07/09/19 Microbiology 07/14/19 11:00 Sputum - Expectorated Gram Stain - Final 07/14/19 11:00 Sputum - Expectorated Sputum Culture - Final NORMAL RESPIRATORY JENISE 07/10/19 09:00 Blood - Peripheral Venous Blood Culture - Final NO GROWTH AFTER 5 DAYS INCUBATION 07/10/19 09:13 Blood - Peripheral Venous Blood Culture - Final NO GROWTH AFTER 5 DAYS INCUBATION 07/08/19 23:04 Blood - Peripheral Venous Blood Culture - Final NO GROWTH AFTER 5 DAYS INCUBATION 07/08/19 23:04 Blood - Peripheral Venous Blood Culture - Final Staphylococcus Capitis 07/10/19 04:30 Urine For Antigen Detection Legionella Antigen - Final 07/10/19 04:30 Urine For Antigen Detection Streptococcus pneumoniae Antigen (M - Final 07/09/19 01:50 Urine - Urine Clean Catch Urine Culture - Final NO GROWTH OBTAINED ASSESSMENT/PLAN: 79 y/o F, pmh of HFrEF (30-35%), COPD (2L NC), a-flutter (on Eliquis 2.5mg BID) , multiple myeloma, endometrial cancer (s/p hysterectomy) presents w/ sob and productive cough is admitted for sepsis 2/2 CAP with hypotension #Acute hypoxic respiratory failure likely 2/2 to pneumonia and d-chf- symptoms have improved Keep on BiPaP overnight #Sepsis 2/2 to CAP likely cause of Blood tinged sputum Abx completed- will d/c today and monitor #HTN Stable BP #CHF Hold- Entresto Lasix 40 daily Monitor I&Os and daily wt #A-flutter eliquis 5 mg #DVTppx eliquis FEN sodium controlled diet Dispo: monitor BP, cont Abx, BiPaP overnight Visit type - Emergency Visit Emergency Visit: Yes ED Registration Date: 07/08/19 Care time: The patient presented to the Emergency Department on the above date and was hospitalized for further evaluation of their emergent condition. - New Patient This patient is new to me today: Yes Date on this admission: 07/17/19 - Critical Care Critical Care patient: No - Discharge Referral Referred to [facility] Med [facility].C.: No ATTENDING PHYSICIAN STATEMENT I saw and evaluated the patient. I reviewed the resident's note and discussed the case with the resident. I agree with the resident's findings and plan as documented. SUBJECTIVE: OBJECTIVE: ASSESSMENT AND PLAN:
--- NOTE | 2019-07-16 20:31 | PN ---
Teaching Attending Note Name of Resident: Fco Scheriber ATTENDING PHYSICIAN STATEMENT I saw and evaluated the patient. I reviewed the resident's note and discussed the case with the resident. I agree with the resident's findings and plan as documented. SUBJECTIVE: Patient is awake today, able to communicate, with no shortness of breath, no fever or chills. Vital Signs Temperature 98.5 F 07/16/19 18:00 Pulse Rate 68 07/16/19 18:00 Respiratory Rate 20 07/16/19 18:00 Blood Pressure 113/55 L 07/16/19 18:00 O2 Sat by Pulse Oximetry (%) 94 L 07/16/19 09:00 GENERAL: The patient is arousable but with difficulty. HEAD: Normal with no signs of trauma. EYES: PERRL, extraocular movements intact, sclera anicteric, conjunctiva clear. ENT: Ears normal, oropharynx clear without exudates, moist mucous membranes. NECK: Trachea midline, full range of motion, supple. LUNGS: decreased Breath sounds BL, no wheezes, no crackles, no accessory muscle use. HEART: Regular rate and rhythm, S1, S2 without murmur, rub or gallop. 3/6 diastolic murmur at RUSB and best heard at LLSB. + JVD ABDOMEN: Soft, nontender, nondistended, normoactive bowel sounds, no guarding, no rebound, no hepatosplenomegaly, no masses. EXTREMITIES: 2+ pulses, warm, well-perfused, no edema NEUROLOGICAL: Cranial nerves II through XII grossly intact. Normal speech, gait not observed. PSYCH: Normal mood, normal affect. SKIN: Warm, dry, normal turgor, no rashes or lesions noted CBCD WBC 2.7 K/mm3 (4.0-10.0) L 07/16/19 06:20 RBC 2.27 M/mm3 (3.60-5.2) L 07/16/19 06:20 Hgb 7.7 GM/dL (10.7-15.3) L 07/16/19 06:20 Hct 23.8 % (32.4-45.2) L 07/16/19 06:20 MCV 105.0 fl (80-96) H 07/16/19 06:20 MCHC 32.3 g/dl (32.0-36.0) 07/16/19 06:20 RDW 18.1 % (11.6-15.6) H 07/16/19 06:20 Plt Count 199 K/MM3 (134-434) 07/16/19 06:20 MPV 8.0 fl (7.5-11.1) 07/16/19 06:20 CMP Sodium 141 mmol/L (136-145) 07/16/19 06:20 Potassium 3.9 mmol/L (3.5-5.1) 07/16/19 06:20 Chloride 99 mmol/L (98-107) 07/16/19 06:20 Carbon Dioxide 41 mmol/L (21-32) H 07/16/19 06:20 Anion Gap 0 MMOL/L (8-16) L 07/16/19 06:20 BUN 44.4 mg/dL (7-18) H 07/16/19 06:20 Creatinine 1.2 mg/dL (0.55-1.3) 07/16/19 06:20 Random Glucose 86 mg/dL (74-106) 07/16/19 06:20 Calcium 9.3 mg/dL (8.5-10.1) 07/16/19 06:20 Total Bilirubin 0.7 mg/dL (0.2-1) 07/16/19 06:20 AST 7 U/L (15-37) L 07/16/19 06:20 ALT 9 U/L (13-61) L 07/16/19 06:20 Alkaline Phosphatase 129 U/L (45-117) H 07/16/19 06:20 Total Protein 5.9 g/dl (6.4-8.2) L 07/16/19 06:20 Albumin 1.9 g/dl (3.4-5.0) L 07/16/19 06:20 CARDIAC ENZYMES Troponin I < 0.02 ng/ml (0.00-0.05) 07/08/19 23:04 Current Medications Generic Name Dose Route Start Last Admin Trade Name Freq PRN Reason Stop Dose Admin Acetaminophen 650 mg 07/14/19 20:55 Tylenol - PO Q6H PRN FEVER Albuterol Sulfate 1 amp 07/12/19 18:10 07/13/19 16:53 Ventolin 0.083% Nebulizer Soln - NEB 1 amp Q1H PRN Administration SHORT OF BREATH/WHEEZING Albuterol/Ipratropium 1 amp 07/12/19 20:00 07/16/19 14:40 Duoneb - NEB 1 amp RTID [facility] Administration Apixaban 5 mg 07/15/19 22:00 07/16/19 09:09 Eliquis - PO 5 mg BID [facility] Administration Atorvastatin Calcium 10 mg 07/12/19 22:00 07/15/19 21:46 Lipitor - PO 10 mg HS [facility] Administration Calcium Carbonate/Cholecalciferol 1 tab 07/13/19 10:00 07/16/19 09:09 Os-Khai 500+D - PO 1 tab DAILY [facility] Administration Carvedilol 6.25 mg 07/13/19 10:56 07/16/19 09:09 Coreg - PO 6.25 mg BID [facility] Administration Chlorhexidine Gluconate 1 applic 07/12/19 22:00 07/15/19 21:45 Hibiclens For Decolonization - TP Not Given HS [facility] Cholecalciferol 1,000 unit 07/13/19 10:00 07/16/19 09:09 Vitamin D3 - PO 1,000 unit DAILY [facility] Administration Cyanocobalamin 1,000 mcg 07/13/19 10:00 07/16/19 09:09 Vitamin B12 - PO 1,000 mcg DAILY [facility] Administration Furosemide 40 mg 07/15/19 12:36 07/16/19 10:22 Lasix Injection - IVPUSH 40 mg DAILY [facility] Administration Mirtazapine 15 mg 07/12/19 22:00 07/15/19 21:49 Remeron - PO Not Given HS [facility] Mirtazapine 7.5 mg 07/12/19 22:00 07/15/19 21:49 Remeron - PO Not Given HS [facility] Valacyclovir HCl 500 mg 07/13/19 10:00 07/16/19 09:09 Valtrex - PO 500 mg DAILY [facility] Administration Home Medications Medication Instructions Recorded Cyanocobalamin [Vitamin B12 -] 1,000 mcg PO DAILY 04/30/19 Metoprolol Tartrate 25 mg PO BID 04/30/19 Mirtazapine 22.5 mg PO DAILY 04/30/19 Omeprazole Magnesium [Prilosec] 20 mg PO DAILY 04/30/19 Sennosides [Senna -] 2 tab PO HS 04/30/19 Simvastatin 10 mg PO HS 04/30/19 Albuterol 2.5/Ipratropium 0.5 1 amp NEB RTID amp 05/10/19 [Duoneb -] Apixaban [Eliquis -] 2.5 mg PO BID tablet 05/10/19 Carvedilol [Coreg -] 6.25 mg PO BID tablet 05/10/19 Calcium Carbonate/Vitamin D3 [Eq 1 each PO DAILY 07/09/19 Calcium 500 + Vit D 400 Tab] Cholecalciferol (Vitamin D3) 1,000 unit PO DAILY 07/09/19 [Vitamin D3 -] Docusate Sodium [Colace] 200 mg PO DAILY 07/09/19 Docusate Sodium [Docusate 100 mg] 100 mg PO DAILY 07/09/19 Furosemide [Lasix -] 20 mg PO Q2D@1000 07/09/19 Mirtazapine 22.5 mg PO DAILY 07/09/19 Multivitamins [Tab-A-Vit -] 1 tab PO DAILY 07/09/19 Sacubitril/Valsartan [Entresto 24 1 tab PO HS 07/09/19 mg-26 mg Tablet] Salmeterol Xinafoate [Serevent 50 mcg IH BID 07/09/19 Diskus] Valacyclovir HCl [Valtrex -] 500 mg PO DAILY 07/09/19 ASSESSMENT AND PLAN: Patient is an 79yo female with Pmhx of MM, on chemo ( last 07/01), HL, A flutter on eliquis, and endometrial cancer s/p hysterectomy who presented with fever and cough with SOB. She was found to have PNA and septic shock. # Acute hypoxic hypercapneic respiratory failure: improved, off Bipap now, looks comfortable now, presented with PNA / Acute diastolic heart failure improved , continue prn BIPAP . pulm. in the case. # Acute diastolic HF: on lasix continue , I's & Os. # B/l CAP: completed antibiotic ;ceftriaxone and azithro. # s/p Septic shock resolved. off pressors now # H/o HTN: resume coreg , resume Entresto when appropriate # h/o A flutter: Cont eliquis , resume low dose coreg DVT x. Eliquis
[2019-07-16] MEDS: CHLORHEXIDINE GLUCONATE 4% CLEANSER FOR DECOLONIZATION TP SCH (21:23)
[2019-07-16] MEDS: MIRTAZAPINE 15 MG TABLET (FP) PO SCH ×2 (21:24)
[2019-07-16] MEDS: ATORVASTATIN CA 10 MG TABLET (FP) PO SCH (21:25)
[2019-07-17 07:29] LABS: HEMATOCRIT 24.5 % (32.4-45.2); MCH 34.4 pg (25.7-33.7); MCHC 32.6 g/dl (32.0-36.0); MEAN CELL VOLUME 105.5 fl (80-96); PLATELET COUNT 180 K/MM3 (134-434); RBC 2.32 M/mm3 (3.60-5.2); WHITE BLOOD COUNT 2.8 K/mm3 (4.0-10.0)
[2019-07-17 07:45] LABS: BLOOD UREA NITROGEN 40.2 mg/dL (7-18); CALCIUM 9.4 mg/dL (8.5-10.1); CREATININE 1.1 mg/dL (0.55-1.3); PHOSPHOROUS 3.9 mg/dL (2.5-4.9)
[2019-07-17] MEDS: ALBUTEROL SO4 2.5/IPRATROPIUM 0.5 INH SOL 3 ML VIAL.NEB. NEB SCH ×3 (08:00→19:57)
[2019-07-17] MEDS: APIXABAN 5 MG TABLET PO SCH ×2 (09:47→21:13)
[2019-07-17] MEDS: CALCIUM 500MG/VIT-D 200 UNITS COMBO TABLET (FP) PO SCH (09:47)
[2019-07-17] MEDS: CYANOCOBALAMIN 1,000 MCG TABLET (FP) PO SCH (09:47)
[2019-07-17] MEDS: CARVEDILOL 6.25 MG TABLET (FP) PO SCH ×2 (09:47→21:13)
[2019-07-17] MEDS: CHOLECALCIFEROL (VIT D3) 1,000 UNIT (25 MCG) TABLET PO SCH (09:47)
[2019-07-17] MEDS: valACYclovir HCL 500 MG TABLET (FP) PO SCH (09:47)
[2019-07-17] MEDS: FUROSEMIDE 40 MG/4 ML INJECTABLE VIAL IVPUSH SCH (10:12)
--- NOTE | 2019-07-17 11:58 | PN ---
Progress Note (short form) - Note Progress Note: Vital Signs Patient is feeling better with no acute distress. A friend at bedside Temperature 98.4 F 07/17/19 08:00 Pulse Rate 61 07/17/19 08:00 Respiratory Rate 18 07/17/19 09:00 Blood Pressure 144/66 07/17/19 08:00 O2 Sat by Pulse Oximetry (%) 94 L 07/17/19 09:00 GENERAL: The patient is arousable but with difficulty. HEAD: Normal with no signs of trauma. EYES: PERRL, extraocular movements intact, sclera anicteric, conjunctiva clear. ENT: Ears normal, oropharynx clear without exudates, moist mucous membranes. NECK: Trachea midline, full range of motion, supple. LUNGS: decreased Breath sounds BL, no wheezes, no crackles, no accessory muscle use. on 2l oxygen now HEART: Regular rate and rhythm, S1, S2 without murmur, rub or gallop. 3/6 diastolic murmur at RUSB and best heard at LLSB. + JVD ABDOMEN: Soft, nontender, nondistended, normoactive bowel sounds, no guarding, no rebound, no hepatosplenomegaly, no masses. EXTREMITIES: 2+ pulses, warm, well-perfused, no edema, No erythema, NEUROLOGICAL: Cranial nerves II through XII grossly intact. Normal speech, gait not observed. PSYCH: Normal mood, normal affect. SKIN: Warm, dry, normal turgor, no rashes or lesions noted CBCD WBC 2.8 K/mm3 (4.0-10.0) L 07/17/19 06:23 RBC 2.32 M/mm3 (3.60-5.2) L 07/17/19 06:23 Hgb 8.0 GM/dL (10.7-15.3) L 07/17/19 06:23 Hct 24.5 % (32.4-45.2) L 07/17/19 06:23 MCV 105.5 fl (80-96) H 07/17/19 06:23 MCHC 32.6 g/dl (32.0-36.0) 07/17/19 06:23 RDW 18.0 % (11.6-15.6) H 07/17/19 06:23 Plt Count 180 K/MM3 (134-434) 07/17/19 06:23 MPV 8.0 fl (7.5-11.1) 07/17/19 06:23 CMP Sodium 141 mmol/L (136-145) 07/17/19 06:23 Potassium 4.0 mmol/L (3.5-5.1) 07/17/19 06:23 Chloride 99 mmol/L (98-107) 07/17/19 06:23 Carbon Dioxide 42 mmol/L (21-32) H 07/17/19 06:23 Anion Gap 1 MMOL/L (8-16) L 07/17/19 06:23 BUN 40.2 mg/dL (7-18) H 07/17/19 06:23 Creatinine 1.1 mg/dL (0.55-1.3) 07/17/19 06:23 Random Glucose 82 mg/dL (74-106) 07/17/19 06:23 Calcium 9.4 mg/dL (8.5-10.1) 07/17/19 06:23 Total Bilirubin 0.7 mg/dL (0.2-1) 07/16/19 06:20 AST 7 U/L (15-37) L 07/16/19 06:20 ALT 9 U/L (13-61) L 07/16/19 06:20 Alkaline Phosphatase 129 U/L (45-117) H 07/16/19 06:20 Total Protein 5.9 g/dl (6.4-8.2) L 07/16/19 06:20 Albumin 1.9 g/dl (3.4-5.0) L 07/16/19 06:20 CARDIAC ENZYMES Troponin I < 0.02 ng/ml (0.00-0.05) 07/08/19 23:04 Current Medications Generic Name Dose Route Start Last Admin Trade Name Freq PRN Reason Stop Dose Admin Acetaminophen 650 mg 07/14/19 20:55 07/16/19 22:58 Tylenol - PO 650 mg Q6H PRN Administration FEVER Albuterol Sulfate 1 amp 07/12/19 18:10 07/13/19 16:53 Ventolin 0.083% Nebulizer Soln - NEB 1 amp Q1H PRN Administration SHORT OF BREATH/WHEEZING Albuterol/Ipratropium 1 amp 07/12/19 20:00 07/17/19 08:00 Duoneb - NEB 1 amp RTID [facility] Administration Apixaban 5 mg 07/15/19 22:00 07/17/19 09:47 Eliquis - PO 5 mg BID [facility] Administration Atorvastatin Calcium 10 mg 07/12/19 22:00 07/16/19 21:25 Lipitor - PO 10 mg HS [facility] Administration Calcium Carbonate/Cholecalciferol 1 tab 07/13/19 10:00 07/17/19 09:47 Os-Khai 500+D - PO 1 tab DAILY [facility] Administration Carvedilol 6.25 mg 07/13/19 10:56 07/17/19 09:47 Coreg - PO 6.25 mg BID [facility] Administration Chlorhexidine Gluconate 1 applic 07/12/19 22:00 07/16/19 21:23 Hibiclens For Decolonization - TP Not Given HS [facility] Cholecalciferol 1,000 unit 07/13/19 10:00 07/17/19 09:47 Vitamin D3 - PO 1,000 unit DAILY [facility] Administration Cyanocobalamin 1,000 mcg 07/13/19 10:00 07/17/19 09:47 Vitamin B12 - PO 1,000 mcg DAILY [facility] Administration Furosemide 40 mg 07/15/19 12:36 07/17/19 10:12 Lasix Injection - IVPUSH 40 mg DAILY [facility] Administration Mirtazapine 15 mg 07/12/19 22:00 07/16/19 21:24 Remeron - PO Not Given HS [facility] Mirtazapine 7.5 mg 07/12/19 22:00 07/16/19 21:24 Remeron - PO Not Given HS [facility] Valacyclovir HCl 500 mg 07/13/19 10:00 07/17/19 09:47 Valtrex - PO 500 mg DAILY [facility] Administration Home Medications Medication Instructions Recorded Cyanocobalamin [Vitamin B12 -] 1,000 mcg PO DAILY 04/30/19 Metoprolol Tartrate 25 mg PO BID 04/30/19 Mirtazapine 22.5 mg PO DAILY 04/30/19 Omeprazole Magnesium [Prilosec] 20 mg PO DAILY 04/30/19 Sennosides [Senna -] 2 tab PO HS 04/30/19 Simvastatin 10 mg PO HS 04/30/19 Albuterol 2.5/Ipratropium 0.5 1 amp NEB RTID amp 05/10/19 [Duoneb -] Apixaban [Eliquis -] 2.5 mg PO BID tablet 05/10/19 Carvedilol [Coreg -] 6.25 mg PO BID tablet 05/10/19 Calcium Carbonate/Vitamin D3 [Eq 1 each PO DAILY 07/09/19 Calcium 500 + Vit D 400 Tab] Cholecalciferol (Vitamin D3) 1,000 unit PO DAILY 07/09/19 [Vitamin D3 -] Docusate Sodium [Colace] 200 mg PO DAILY 07/09/19 Docusate Sodium [Docusate 100 mg] 100 mg PO DAILY 07/09/19 Furosemide [Lasix -] 20 mg PO Q2D@1000 07/09/19 Mirtazapine 22.5 mg PO DAILY 07/09/19 Multivitamins [Tab-A-Vit -] 1 tab PO DAILY 07/09/19 Sacubitril/Valsartan [Entresto 24 1 tab PO HS 07/09/19 mg-26 mg Tablet] Salmeterol Xinafoate [Serevent 50 mcg IH BID 07/09/19 Diskus] Valacyclovir HCl [Valtrex -] 500 mg PO DAILY 07/09/19 ASSESSMENT AND PLAN: Patient is an 79yo female with Pmhx of MM, on chemo ( last 07/01), HL, A flutter on eliquis, and endometrial cancer s/p hysterectomy who presented with fever and cough with SOB. She was found to have PNA and septic shock. # Acute hypoxic hypercapneic respiratory failure: improved, off Bipap now, looks comfortable now, # Acute diastolic heart failure improved on lasix continue, BIPAP prn, patient does not use bipap at home. pulm. on the case. on 2 liter oxygen # B/l CAP: s/p ceftriaxone and azithro. # s/p Septic shock resolved. off pressors now # H/o HTN: resume coreg , resume Entresto when appropriate # h/o A flutter: Cont eliquis , resume low dose coreg DVT x. Eliquis Visit type - Emergency Visit Emergency Visit: Yes ED Registration Date: 07/08/19 Care time: The patient presented to the Emergency Department on the above date and was hospitalized for further evaluation of their emergent condition. - New Patient This patient is new to me today: No - Critical Care Critical Care patient: No - Discharge Referral Referred to [facility] Med P.C.: No
--- NOTE | 2019-07-17 12:50 | PN ---
Progress Note (short form) - Note Progress Note: PULMONARY Denies shortness of breath, cough. No fevers or chills. Vital Signs Period Temp Pulse Resp BP Sys/Salgado Pulse Ox Last 24 Hr 98 F-99 F 59-83 18-20 110-144/53-68 94-96 Gen: NAD at rest Heart: RRR Lung: decreased breath sounds at the bases Abd: soft, nontender Ext: no edema CBC, BMP 07/17/19 06:23 07/17/19 06:23 Active Medications Acetaminophen (Tylenol -) 650 mg PO Q6H PRN PRN Reason: FEVER Last Admin: 07/16/19 22:58 Dose: 650 mg Albuterol Sulfate (Ventolin 0.083% Nebulizer Soln -) 1 amp NEB Q1H PRN PRN Reason: SHORT OF BREATH/WHEEZING Last Admin: 07/13/19 16:53 Dose: 1 amp Albuterol/Ipratropium (Duoneb -) 1 amp NEB RTID [facility] Last Admin: 07/17/19 08:00 Dose: 1 amp Apixaban (Eliquis -) 5 mg PO BID [facility] Last Admin: 07/17/19 09:47 Dose: 5 mg Atorvastatin Calcium (Lipitor -) 10 mg PO HS [facility] Last Admin: 07/16/19 21:25 Dose: 10 mg Calcium Carbonate/Cholecalciferol (Os-Khai 500+D -) 1 tab PO DAILY [facility] Last Admin: 07/17/19 09:47 Dose: 1 tab Carvedilol (Coreg -) 6.25 mg PO BID [facility] Last Admin: 07/17/19 09:47 Dose: 6.25 mg Chlorhexidine Gluconate (Hibiclens For Decolonization -) 1 applic TP [facility] Last Admin: 07/16/19 21:23 Dose: Not Given Cholecalciferol (Vitamin D3 -) 1,000 unit PO DAILY [facility] Last Admin: 07/17/19 09:47 Dose: 1,000 unit Cyanocobalamin (Vitamin B12 -) 1,000 mcg PO DAILY [facility] Last Admin: 07/17/19 09:47 Dose: 1,000 mcg Furosemide (Lasix Injection -) 40 mg IVPUSH DAILY [facility] Last Admin: 07/17/19 10:12 Dose: 40 mg Mirtazapine (Remeron -) 15 mg PO [facility] Last Admin: 07/16/19 21:24 Dose: Not Given Mirtazapine (Remeron -) 7.5 mg PO HS [facility] Last Admin: 07/16/19 21:24 Dose: Not Given Valacyclovir HCl (Valtrex -) 500 mg PO DAILY [facility] Last Admin: 07/17/19 09:47 Dose: 500 mg A/P Pneumonia Septic Shock improved LV Systolic Dysfunction Atrial Flutter COPD Chronic Hypoxic Respiratory Failure Multiple Myeloma Hyperlipidemia Anemia - completed antibiotics - continue lasix - monitor urine output, creatinine - O2 to keep SpO2 >90% - inhaled bronchodilators - rate control - continue anticoagulation
[2019-07-17] MEDS: CHLORHEXIDINE GLUCONATE 4% CLEANSER FOR DECOLONIZATION TP SCH (21:08)
[2019-07-17] MEDS: MIRTAZAPINE 15 MG TABLET (FP) PO SCH ×2 (21:09→21:10)
[2019-07-17] MEDS: ATORVASTATIN CA 10 MG TABLET (FP) PO SCH (21:13)
[2019-07-18] MEDS: ALBUTEROL SO4 2.5/IPRATROPIUM 0.5 INH SOL 3 ML VIAL.NEB. NEB SCH ×3 (07:47→19:47)
[2019-07-18] MEDS: CALCIUM 500MG/VIT-D 200 UNITS COMBO TABLET (FP) PO SCH (10:41)
[2019-07-18] MEDS: CYANOCOBALAMIN 1,000 MCG TABLET (FP) PO SCH (10:41)
[2019-07-18] MEDS: CHOLECALCIFEROL (VIT D3) 1,000 UNIT (25 MCG) TABLET PO SCH (10:41)
[2019-07-18] MEDS: APIXABAN 5 MG TABLET PO SCH ×2 (10:41→21:52)
[2019-07-18] MEDS: FUROSEMIDE 40 MG/4 ML INJECTABLE VIAL IVPUSH SCH (10:42)
[2019-07-18] MEDS: valACYclovir HCL 500 MG TABLET (FP) PO SCH (10:42)
[2019-07-18] MEDS: CARVEDILOL 6.25 MG TABLET (FP) PO SCH ×2 (10:42→21:52)
--- NOTE | 2019-07-18 13:12 | PN ---
Progress Note (short form) - Note Progress Note: PULMONARY Breathing about the same. No fevers or chills. Vital Signs Period Temp Pulse Resp BP Sys/Salgado Pulse Ox Last 24 Hr 97.5 F-99.1 F 61-76 17-20 109-135/58-64 92-96 Intake & Output 07/15/19 07/16/19 07/17/19 07/18/19 23:59 23:59 23:59 23:59 Intake Total 525 223 1847 Output Total 1652 644 0101 Balance -1300 250 -800 Weight 62.414 kg 62.142 kg Gen: NAD at rest Heart: RRR Lung: decreased breath sounds at the bases Abd: soft, nontender Ext: no edema CBC, BMP 07/17/19 06:23 07/17/19 06:23 Active Medications Acetaminophen (Tylenol -) 650 mg PO Q6H PRN PRN Reason: FEVER Last Admin: 07/16/19 22:58 Dose: 650 mg Albuterol Sulfate (Ventolin 0.083% Nebulizer Soln -) 1 amp NEB Q1H PRN PRN Reason: SHORT OF BREATH/WHEEZING Last Admin: 07/13/19 16:53 Dose: 1 amp Albuterol/Ipratropium (Duoneb -) 1 amp NEB RTID [facility] Last Admin: 07/18/19 07:47 Dose: 1 amp Apixaban (Eliquis -) 5 mg PO BID [facility] Last Admin: 07/18/19 10:41 Dose: 5 mg Atorvastatin Calcium (Lipitor -) 10 mg PO [facility] Last Admin: 07/17/19 21:13 Dose: 10 mg Calcium Carbonate/Cholecalciferol (Os-Khai 500+D -) 1 tab PO DAILY [facility] Last Admin: 07/18/19 10:41 Dose: 1 tab Carvedilol (Coreg -) 6.25 mg PO BID [facility] Last Admin: 07/18/19 10:42 Dose: 6.25 mg Chlorhexidine Gluconate (Hibiclens For Decolonization -) 1 applic TP [facility] Last Admin: 07/17/19 21:08 Dose: Not Given Cholecalciferol (Vitamin D3 -) 1,000 unit PO DAILY [facility] Last Admin: 07/18/19 10:41 Dose: 1,000 unit Cyanocobalamin (Vitamin B12 -) 1,000 mcg PO DAILY [facility] Last Admin: 07/18/19 10:41 Dose: 1,000 mcg Furosemide (Lasix Injection -) 40 mg IVPUSH DAILY [facility] Last Admin: 07/18/19 10:42 Dose: 40 mg Mirtazapine (Remeron -) 15 mg PO HS [facility] Last Admin: 07/17/19 21:09 Dose: Not Given Mirtazapine (Remeron -) 7.5 mg PO HS [facility] Last Admin: 07/17/19 21:10 Dose: Not Given Valacyclovir HCl (Valtrex -) 500 mg PO DAILY [facility] Last Admin: 07/18/19 10:42 Dose: 500 mg A/P Pneumonia treated Septic Shock improved Acute on Chronic Systolic Heart Failure Atrial Flutter COPD Chronic Hypoxic Respiratory Failure Multiple Myeloma Hyperlipidemia Anemia - completed antibiotics - continue lasix - monitor urine output, creatinine - O2 to keep SpO2 >90% - inhaled bronchodilators - rate control - continue anticoagulation
--- NOTE | 2019-07-18 17:01 | PN ---
Progress Note (short form) - Note Progress Note: Patient is feeling better with no acute distress. continue NC continue. Vital Signs Temperature 99.1 F 07/18/19 06:00 Pulse Rate 72 07/18/19 14:00 Respiratory Rate 18 07/18/19 06:00 Blood Pressure 96/44 L 07/18/19 14:00 O2 Sat by Pulse Oximetry (%) 98 07/18/19 16:15 GENERAL: The patient is arousable but with difficulty. HEAD: Normal with no signs of trauma. EYES: PERRL, extraocular movements intact, sclera anicteric, conjunctiva clear. ENT: Ears normal, oropharynx clear without exudates, moist mucous membranes. NECK: Trachea midline, full range of motion, supple. LUNGS: decreased Breath sounds BL, no wheezes, no crackles, no accessory muscle use. on 2l oxygen now HEART: Regular rate and rhythm, S1, S2 positive, 3/6 diastolic murmur at RUSB and best heard at LLSB. + JVD ABDOMEN: Soft, nontender, nondistended, normoactive bowel sounds, no guarding, no rebound, no hepatosplenomegaly, no masses. EXTREMITIES: 2+ pulses, warm, well-perfused, no edema, No erythema, NEUROLOGICAL: Cranial nerves II through XII grossly intact. Normal speech, gait not observed. PSYCH: Normal mood, normal affect. SKIN: Warm, dry, normal turgor, no rashes or lesions noted CBCD WBC 2.8 K/mm3 (4.0-10.0) L 07/17/19 06:23 RBC 2.32 M/mm3 (3.60-5.2) L 07/17/19 06:23 Hgb 8.0 GM/dL (10.7-15.3) L 07/17/19 06:23 Hct 24.5 % (32.4-45.2) L 07/17/19 06:23 MCV 105.5 fl (80-96) H 07/17/19 06:23 MCHC 32.6 g/dl (32.0-36.0) 07/17/19 06:23 RDW 18.0 % (11.6-15.6) H 07/17/19 06:23 Plt Count 180 K/MM3 (134-434) 07/17/19 06:23 MPV 8.0 fl (7.5-11.1) 07/17/19 06:23 CMP Sodium 141 mmol/L (136-145) 07/17/19 06:23 Potassium 4.0 mmol/L (3.5-5.1) 07/17/19 06:23 Chloride 99 mmol/L (98-107) 07/17/19 06:23 Carbon Dioxide 42 mmol/L (21-32) H 07/17/19 06:23 Anion Gap 1 MMOL/L (8-16) L 07/17/19 06:23 BUN 40.2 mg/dL (7-18) H 07/17/19 06:23 Creatinine 1.1 mg/dL (0.55-1.3) 07/17/19 06:23 Random Glucose 82 mg/dL (74-106) 07/17/19 06:23 Calcium 9.4 mg/dL (8.5-10.1) 07/17/19 06:23 Total Bilirubin 0.7 mg/dL (0.2-1) 07/16/19 06:20 AST 7 U/L (15-37) L 07/16/19 06:20 ALT 9 U/L (13-61) L 07/16/19 06:20 Alkaline Phosphatase 129 U/L (45-117) H 07/16/19 06:20 Total Protein 5.9 g/dl (6.4-8.2) L 07/16/19 06:20 Albumin 1.9 g/dl (3.4-5.0) L 07/16/19 06:20 CARDIAC ENZYMES Troponin I < 0.02 ng/ml (0.00-0.05) 07/08/19 23:04 Current Medications Generic Name Dose Route Start Last Admin Trade Name Freq PRN Reason Stop Dose Admin Acetaminophen 650 mg 07/14/19 20:55 07/16/19 22:58 Tylenol - PO 650 mg Q6H PRN Administration FEVER Albuterol Sulfate 1 amp 07/12/19 18:10 07/13/19 16:53 Ventolin 0.083% Nebulizer Soln - NEB 1 amp Q1H PRN Administration SHORT OF BREATH/WHEEZING Albuterol/Ipratropium 1 amp 07/12/19 20:00 07/17/19 08:00 Duoneb - NEB 1 amp RTID [facility] Administration Apixaban 5 mg 07/15/19 22:00 07/17/19 09:47 Eliquis - PO 5 mg BID [facility] Administration Atorvastatin Calcium 10 mg 07/12/19 22:00 07/16/19 21:25 Lipitor - PO 10 mg HS [facility] Administration Calcium Carbonate/Cholecalciferol 1 tab 07/13/19 10:00 07/17/19 09:47 Os-Khai 500+D - PO 1 tab DAILY [facility] Administration Carvedilol 6.25 mg 07/13/19 10:56 07/17/19 09:47 Coreg - PO 6.25 mg BID [facility] Administration Chlorhexidine Gluconate 1 applic 07/12/19 22:00 07/16/19 21:23 Hibiclens For Decolonization - TP Not Given HS [facility] Cholecalciferol 1,000 unit 07/13/19 10:00 07/17/19 09:47 Vitamin D3 - PO 1,000 unit DAILY [facility] Administration Cyanocobalamin 1,000 mcg 07/13/19 10:00 07/17/19 09:47 Vitamin B12 - PO 1,000 mcg DAILY [facility] Administration Furosemide 40 mg 07/15/19 12:36 07/17/19 10:12 Lasix Injection - IVPUSH 40 mg DAILY [facility] Administration Mirtazapine 15 mg 07/12/19 22:00 07/16/19 21:24 Remeron - PO Not Given [facility] Mirtazapine 7.5 mg 07/12/19 22:00 07/16/19 21:24 Remeron - PO Not Given HS [facility] Valacyclovir HCl 500 mg 07/13/19 10:00 07/17/19 09:47 Valtrex - PO 500 mg DAILY [facility] Administration Home Medications Medication Instructions Recorded Cyanocobalamin [Vitamin B12 -] 1,000 mcg PO DAILY 04/30/19 Metoprolol Tartrate 25 mg PO BID 04/30/19 Mirtazapine 22.5 mg PO DAILY 04/30/19 Omeprazole Magnesium [Prilosec] 20 mg PO DAILY 04/30/19 Sennosides [Senna -] 2 tab PO HS 04/30/19 Simvastatin 10 mg PO HS 04/30/19 Albuterol 2.5/Ipratropium 0.5 1 amp NEB RTID amp 05/10/19 [Duoneb -] Apixaban [Eliquis -] 2.5 mg PO BID tablet 05/10/19 Carvedilol [Coreg -] 6.25 mg PO BID tablet 05/10/19 Calcium Carbonate/Vitamin D3 [Eq 1 each PO DAILY 07/09/19 Calcium 500 + Vit D 400 Tab] Cholecalciferol (Vitamin D3) 1,000 unit PO DAILY 07/09/19 [Vitamin D3 -] Docusate Sodium [Colace] 200 mg PO DAILY 07/09/19 Docusate Sodium [Docusate 100 mg] 100 mg PO DAILY 07/09/19 Furosemide [Lasix -] 20 mg PO Q2D@1000 07/09/19 Mirtazapine 22.5 mg PO DAILY 07/09/19 Multivitamins [Tab-A-Vit -] 1 tab PO DAILY 07/09/19 Sacubitril/Valsartan [Entresto 24 1 tab PO HS 07/09/19 mg-26 mg Tablet] Salmeterol Xinafoate [Serevent 50 mcg IH BID 07/09/19 Diskus] Valacyclovir HCl [Valtrex -] 500 mg PO DAILY 07/09/19 ASSESSMENT AND PLAN: Patient is an 79yo female with Pmhx of MM, on chemo ( last 07/01), HL, A flutter on eliquis, and endometrial cancer s/p hysterectomy who presented with fever and cough with SOB. She was found to have PNA and septic shock. # Acute hypoxic hypercapneic respiratory failure: improved, on NC now, off Bipap now, looks comfortable # Acute diastolic heart failure improved on lasix continue, BIPAP prn, patient does not use bipap at home. pulm. on the case.continue on 2 liter oxygen # B/l CAP: s/p ceftriaxone and azithro. # s/p Septic shock resolved. off pressors now # H/o HTN: resume coreg , resume Entresto when appropriate # h/o A flutter: Cont eliquis , resume low dose coreg DVT x. Eliquis PT evaluation , possible dc to rehab in am Visit type - Emergency Visit Emergency Visit: Yes ED Registration Date: 07/08/19 Care time: The patient presented to the Emergency Department on the above date and was hospitalized for further evaluation of their emergent condition. - New Patient This patient is new to me today: No - Critical Care Critical Care patient: No - Discharge Referral Referred to [facility] Med P.C.: No
[2019-07-18] MEDS: CHLORHEXIDINE GLUCONATE 4% CLEANSER FOR DECOLONIZATION TP SCH (21:49)
[2019-07-18] MEDS: MIRTAZAPINE 15 MG TABLET (FP) PO SCH ×2 (21:52)
[2019-07-18] MEDS: ATORVASTATIN CA 10 MG TABLET (FP) PO SCH (21:52)
[2019-07-19 07:15] LABS: BASO % 1.9 % (0-2.0); EOS % 3.4 % (0-4.5); HEMATOCRIT 25.8 % (32.4-45.2); HEMOGLOBIN 8.4 GM/dL (10.7-15.3); MCH 34.4 pg (25.7-33.7); MCHC 32.7 g/dl (32.0-36.0); MEAN CELL VOLUME 105.3 fl (80-96); MEAN PLT VOLUME 8.1 fl (7.5-11.1); MONO % 17.4 % (3.8-10.2); NEUT % 62.3 % (42.8-82.8); PLATELET COUNT 182 K/MM3 (134-434); RBC 2.45 M/mm3 (3.60-5.2); RDW 17.5 % (11.6-15.6); WHITE BLOOD COUNT 3.3 K/mm3 (4.0-10.0)
[2019-07-19] MEDS: ALBUTEROL SO4 2.5/IPRATROPIUM 0.5 INH SOL 3 ML VIAL.NEB. NEB SCH ×3 (07:25→20:06)
[2019-07-19 07:42] LABS: ALBUMIN 2.2 g/dl (3.4-5.0); ALK PHOS 127 U/L (45-117); ANION GAP 2 MMOL/L (8-16); BILIRUBIN,TOTAL 0.4 mg/dL (0.2-1); BLOOD UREA NITROGEN 38.2 mg/dL (7-18); CALCIUM 9.6 mg/dL (8.5-10.1); CHLORIDE 92 mmol/L (98-107); CO2 > 45 mmol/L (21-32); GLUCOSE,RANDOM 89 mg/dL (74-106); MAGNESIUM 2.1 mg/dL (1.8-2.4); PHOSPHOROUS 3.6 mg/dL (2.5-4.9); POTASSIUM 3.6 mmol/L (3.5-5.1); SGOT/AST 11 U/L (15-37); SGPT/ALT 10 U/L (13-61); SODIUM 139 mmol/L (136-145); TOT PROT 6.8 g/dl (6.4-8.2)
[2019-07-19] MEDS: APIXABAN 5 MG TABLET PO SCH ×2 (09:21→21:29)
[2019-07-19] MEDS: CYANOCOBALAMIN 1,000 MCG TABLET (FP) PO SCH (09:21)
[2019-07-19] MEDS: valACYclovir HCL 500 MG TABLET (FP) PO SCH (09:21)
[2019-07-19] MEDS: CALCIUM 500MG/VIT-D 200 UNITS COMBO TABLET (FP) PO SCH (09:21)
[2019-07-19] MEDS: CHOLECALCIFEROL (VIT D3) 1,000 UNIT (25 MCG) TABLET PO SCH (09:21)
[2019-07-19] MEDS: CARVEDILOL 6.25 MG TABLET (FP) PO SCH ×2 (09:21→21:29)
[2019-07-19] MEDS: FUROSEMIDE 40 MG/4 ML INJECTABLE VIAL IVPUSH SCH (09:52)
--- NOTE | 2019-07-19 10:38 | PN ---
Progress Note, Physician History of Present Illness: pulmonary alert,comfortable,-resp distress,-cp - Current Medication List Current Medications: Active Medications Acetaminophen (Tylenol -) 650 mg PO Q6H PRN PRN Reason: FEVER Last Admin: 07/16/19 22:58 Dose: 650 mg Albuterol Sulfate (Ventolin 0.083% Nebulizer Soln -) 1 amp NEB Q1H PRN PRN Reason: SHORT OF BREATH/WHEEZING Last Admin: 07/13/19 16:53 Dose: 1 amp Albuterol/Ipratropium (Duoneb -) 1 amp NEB RTID [facility] Last Admin: 07/19/19 07:25 Dose: 1 amp Apixaban (Eliquis -) 5 mg PO BID [facility] Last Admin: 07/19/19 09:21 Dose: 5 mg Atorvastatin Calcium (Lipitor -) 10 mg PO HS [facility] Last Admin: 07/18/19 21:52 Dose: 10 mg Calcium Carbonate/Cholecalciferol (Os-Khai 500+D -) 1 tab PO DAILY [facility] Last Admin: 07/19/19 09:21 Dose: 1 tab Carvedilol (Coreg -) 6.25 mg PO BID [facility] Last Admin: 07/19/19 09:21 Dose: 6.25 mg Cholecalciferol (Vitamin D3 -) 1,000 unit PO DAILY [facility] Last Admin: 07/19/19 09:21 Dose: 1,000 unit Cyanocobalamin (Vitamin B12 -) 1,000 mcg PO DAILY [facility] Last Admin: 07/19/19 09:21 Dose: 1,000 mcg Furosemide (Lasix Injection -) 40 mg IVPUSH DAILY [facility] Last Admin: 07/19/19 09:52 Dose: 40 mg Mirtazapine (Remeron -) 15 mg PO HS [facility] Last Admin: 07/18/19 21:52 Dose: Not Given Mirtazapine (Remeron -) 7.5 mg PO HS [facility] Last Admin: 07/18/19 21:52 Dose: Not Given Valacyclovir HCl (Valtrex -) 500 mg PO DAILY [facility] Last Admin: 07/19/19 09:21 Dose: 500 mg - Objective Vital Signs: Vital Signs Temperature 98.0 F 07/19/19 08:54 Pulse Rate 61 07/19/19 08:54 Respiratory Rate 18 07/19/19 09:00 Blood Pressure 127/63 07/19/19 08:54 O2 Sat by Pulse Oximetry (%) 96 07/19/19 09:00 Constitutional: Yes: Well Nourished, Calm Eyes: Yes: WNL HENT: Yes: WNL Neck: Yes: WNL Cardiovascular: Yes: Regular Rate and Rhythm, S1, S2 Respiratory: Yes: Rales (bibasilar rales) Gastrointestinal: Yes: Normal Bowel Sounds, Soft Extremities: Yes: WNL Edema: No Labs: CBC, BMP 07/19/19 06:28 07/19/19 06:28 Problem List - Problems (1) CHF (congestive heart failure) Code(s): I50.9 - HEART FAILURE, UNSPECIFIED Qualifiers: Heart failure type: unspecified Heart failure chronicity: chronic Qualified Code(s): I50.9 - Heart failure, unspecified (2) Hypotension Code(s): I95.9 - HYPOTENSION, UNSPECIFIED Qualifiers: Hypotension type: unspecified hypotension type Qualified Code(s): I95.9 - Hypotension, unspecified (3) Pneumonia Code(s): J18.9 - PNEUMONIA, UNSPECIFIED ORGANISM Qualifiers: Pneumonia type: due to unspecified organism Laterality: right Lung location: lower lobe of lung Qualified Code(s): J18.9 - Pneumonia, unspecified organism (4) Atrial flutter Code(s): I48.92 - UNSPECIFIED ATRIAL FLUTTER (5) Dyspnea Code(s): R06.00 - DYSPNEA, UNSPECIFIED Qualifiers: Dyspnea type: unspecified Qualified Code(s): R06.00 - Dyspnea, unspecified (6) Multiple myeloma Code(s): C90.00 - MULTIPLE MYELOMA NOT HAVING ACHIEVED REMISSION Qualifiers: Multiple myeloma remission status: in remission Qualified Code(s): C90.01 - Multiple myeloma in remission Assessment/Plan Assessment/Plan Septic Shock possibly due to PNA clinically improved Acute respiratory failure improved Multiple myeloma HFrEF (30-35%) HTN COPD (2L NC) HLD A-flutter (eliquis) Anemia Lasix Supplemental 02 Bronchodilators Strict I & O monitor lytes,renal function,h+h F/U CHEST X-RAY f/u abgs prn DR AGUSTIN
[2019-07-19 10:54] LABS: ARTERIAL BLD GAS O2 SATURATION 97.5 % (95-98); ARTERIAL BLOOD GAS BASE EXCESS 18.6 meq/l (-2-2); ARTERIAL BLOOD GAS PCO2 62.3 mmHg (35-45); ARTERIAL BLOOD GAS PO2 85.3 mmHg (80-100); ARTERIAL BLOOD GAS pH 7.47 (7.35-7.45)
[2019-07-19 10:59] LABS: ALLENS TEST POSITIVE
[2019-07-19 11:15] LABS: ANISOCYTOSIS 1+; MACROCYTOSIS 2+; PLATELET ESTIMATE NORMAL
--- NOTE | 2019-07-19 16:08 | PN ---
Physical Exam: SUBJECTIVE: Patient seen and examined Pt doing much better today. Pt is responsive, communicating and states she has improved. Pt c/o of no overnight events or issues. Afebrile and asymptomatic. Pt was on NC 3L. Denies f/c/n/v/d/sob/chest pain OBJECTIVE: Vital Signs Period Temp Pulse Resp BP Sys/Salgado Pulse Ox Last 24 Hr 97.6 F-98.5 F 58-70 18-18 111-133/57-70 94-99 GENERAL: Cooperative, conversational. NAD HEAD: Normal with no signs of trauma. EYES: Pupils equal, round and reactive to light, EARS, NOSE, THROAT: oropharynx clear without exudates. Moist mucous membranes. LUNGS: crackles noted- improved HEART: Regular rate and rhythm- hx of a-flutter, normal S1 and S2 without murmur , rub or gallop. ABDOMEN: Soft, nontender, not distended, normoactive bowel sounds, no guarding, UPPER EXTREMITIES: 2+ pulses, warm, well-perfused. No cyanosis. LOWER EXTREMITIES: 2+ pulses, 1+ edema b/l. Left leg has a laceration wound which was accidental as per nursing. NEUROLOGICAL: Minimal speech. SKIN: Warm, dry, normal turgor Laboratory Results - last 24 hr CBC,CMP WBC 3.3 K/mm3 (4.0-10.0) L 07/19/19 06:28 RBC 2.45 M/mm3 (3.60-5.2) L 07/19/19 06:28 Hgb 8.4 GM/dL (10.7-15.3) L 07/19/19 06:28 Hct 25.8 % (32.4-45.2) L 07/19/19 06:28 MCV 105.3 fl (80-96) H 07/19/19 06:28 MCH 34.4 pg (25.7-33.7) H 07/19/19 06:28 MCHC 32.7 g/dl (32.0-36.0) 07/19/19 06:28 RDW 17.5 % (11.6-15.6) H 07/19/19 06:28 Plt Count 182 K/MM3 (134-434) 07/19/19 06:28 MPV 8.1 fl (7.5-11.1) 07/19/19 06:28 Absolute Neuts (auto) 2.0 K/mm3 (1.5-8.0) 07/19/19 06:28 Total Counted 100 07/08/19 23:04 Neutrophils % 62.3 % (42.8-82.8) 07/19/19 06:28 Neutrophils % (Manual) 81.0 % (42.8-82.8) 07/12/19 06:00 Band Neutrophils % 0.0 % 07/12/19 06:00 Lymphocytes % 15.0 % (8-40) D 07/19/19 06:28 Lymphocytes % (Manual) 2.0 % (8-40) L D 07/12/19 06:00 Monocytes % 17.4 % (3.8-10.2) H 07/19/19 06:28 Monocytes % (Manual) 12 % (3.8-10.2) H 07/12/19 06:00 Eosinophils % 3.4 % (0-4.5) D 07/19/19 06:28 Eosinophils % (Manual) 0.0 % (0-4.5) D 07/12/19 06:00 Basophils % 1.9 % (0-2.0) D 07/19/19 06:28 Basophils % (Manual) 0.0 % (0-2.0) 07/12/19 06:00 Myelocytes % (Man) 0 % (0-2) D 07/12/19 06:00 Promyelocytes % (Man) 0 % (0-2) 07/12/19 06:00 Blast Cells % (Manual) 0 % (0-0) 07/12/19 06:00 Nucleated RBC % 0 % (0-0) 07/19/19 06:28 Metamyelocytes 0 % (0-2) 07/12/19 06:00 Hypochromia 0 07/19/19 06:28 Platelet Estimate Normal 07/19/19 06:28 Polychromasia 0 07/19/19 06:28 Poikilocytosis 0 07/19/19 06:28 Anisocytosis 1+ 07/19/19 06:28 Macrocytosis 2+ 07/19/19 06:28 Schistocytes 1+ 07/12/19 06:00 Sodium 139 mmol/L (136-145) 07/19/19 06:28 Potassium 3.6 mmol/L (3.5-5.1) 07/19/19 06:28 Chloride 92 mmol/L (98-107) L 07/19/19 06:28 Carbon Dioxide > 45 mmol/L (21-32) H 07/19/19 06:28 Anion Gap 2 MMOL/L (8-16) L 07/19/19 06:28 BUN 38.2 mg/dL (7-18) H 07/19/19 06:28 Creatinine 1.0 mg/dL (0.55-1.3) 07/19/19 06:28 Est GFR (CKD-EPI)AfAm 61.19 07/19/19 06:28 Est GFR (CKD-EPI)NonAf 52.79 07/19/19 06:28 Random Glucose 89 mg/dL (74-106) 07/19/19 06:28 Lactic Acid 0.8 mmol/L (0.4-2.0) 07/08/19 23:04 Calcium 9.6 mg/dL (8.5-10.1) 07/19/19 06:28 Phosphorus 3.6 mg/dL (2.5-4.9) 07/19/19 06:28 Magnesium 2.1 mg/dL (1.8-2.4) 07/19/19 06:28 Iron 70 ug/dL (50-175) 07/16/19 06:20 TIBC 216 ug/dL (250-450) L 07/16/19 06:20 Iron Saturation 32 % (17.5-39) 07/16/19 06:20 Unsaturated IBC 146 ug/dL (200-275) L 07/16/19 06:20 Ferritin 225.0 ng/ml (8-388) 07/16/19 06:20 Total Bilirubin 0.4 mg/dL (0.2-1) 07/19/19 06:28 AST 11 U/L (15-37) L 07/19/19 06:28 ALT 10 U/L (13-61) L 07/19/19 06:28 Alkaline Phosphatase 127 U/L (45-117) H 07/19/19 06:28 Troponin I < 0.02 ng/ml (0.00-0.05) 07/08/19 23:04 B-Natriuretic Peptide 3737.4 pg/ml (5-450) H 07/08/19 23:04 Total Protein 6.8 g/dl (6.4-8.2) 07/19/19 06:28 Albumin 2.2 g/dl (3.4-5.0) L 07/19/19 06:28 Active Medications Current Medications Acetaminophen (Tylenol -) 650 mg PO Q6H PRN PRN Reason: FEVER Last Admin: 07/16/19 22:58 Dose: 650 mg Albuterol Sulfate (Ventolin 0.083% Nebulizer Soln -) 1 amp NEB Q1H PRN PRN Reason: SHORT OF BREATH/WHEEZING Last Admin: 07/13/19 16:53 Dose: 1 amp Albuterol/Ipratropium (Duoneb -) 1 amp NEB RTID [facility] Last Admin: 07/19/19 07:25 Dose: 1 amp Apixaban (Eliquis -) 5 mg PO BID [facility] Last Admin: 07/19/19 09:21 Dose: 5 mg Atorvastatin Calcium (Lipitor -) 10 mg PO HS [facility] Last Admin: 07/18/19 21:52 Dose: 10 mg Calcium Carbonate/Cholecalciferol (Os-Khai 500+D -) 1 tab PO DAILY [facility] Last Admin: 07/19/19 09:21 Dose: 1 tab Carvedilol (Coreg -) 6.25 mg PO BID [facility] Last Admin: 07/19/19 09:21 Dose: 6.25 mg Cholecalciferol (Vitamin D3 -) 1,000 unit PO DAILY [facility] Last Admin: 07/19/19 09:21 Dose: 1,000 unit Cyanocobalamin (Vitamin B12 -) 1,000 mcg PO DAILY [facility] Last Admin: 07/19/19 09:21 Dose: 1,000 mcg Furosemide (Lasix Injection -) 40 mg IVPUSH DAILY [facility] Last Admin: 07/19/19 09:52 Dose: 40 mg Mirtazapine (Remeron -) 15 mg PO HS [facility] Last Admin: 07/18/19 21:52 Dose: Not Given Mirtazapine (Remeron -) 7.5 mg PO HS [facility] Last Admin: 07/18/19 21:52 Dose: Not Given Valacyclovir HCl (Valtrex -) 500 mg PO DAILY [facility] Last Admin: 11/25/19 09:21 Dose: 500 mg Home Medications Medication Instructions Recorded Cyanocobalamin [Vitamin B12 -] 1,000 mcg PO DAILY 04/30/19 Metoprolol Tartrate 25 mg PO BID 04/30/19 Mirtazapine 22.5 mg PO DAILY 04/30/19 Omeprazole Magnesium [Prilosec] 20 mg PO DAILY 04/30/19 Sennosides [Senna -] 2 tab PO HS 04/30/19 Simvastatin 10 mg PO HS 04/30/19 Albuterol 2.5/Ipratropium 0.5 1 amp NEB RTID amp 05/10/19 [Duoneb -] Apixaban [Eliquis -] 2.5 mg PO BID tablet 05/10/19 Carvedilol [Coreg -] 6.25 mg PO BID tablet 05/10/19 Calcium Carbonate/Vitamin D3 [Eq 1 each PO DAILY 07/09/19 Calcium 500 + Vit D 400 Tab] Cholecalciferol (Vitamin D3) 1,000 unit PO DAILY 07/09/19 [Vitamin D3 -] Docusate Sodium [Colace] 200 mg PO DAILY 07/09/19 Docusate Sodium [Docusate 100 mg] 100 mg PO DAILY 07/09/19 Furosemide [Lasix -] 20 mg PO Q2D@1000 07/09/19 Mirtazapine 22.5 mg PO DAILY 07/09/19 Multivitamins [Tab-A-Vit -] 1 tab PO DAILY 07/09/19 Sacubitril/Valsartan [Entresto 24 1 tab PO HS 07/09/19 mg-26 mg Tablet] Salmeterol Xinafoate [Serevent 50 mcg IH BID 07/09/19 Diskus] Valacyclovir HCl [Valtrex -] 500 mg PO DAILY 07/09/19 Microbiology 07/14/19 11:00 Sputum - Expectorated Gram Stain - Final 07/14/19 11:00 Sputum - Expectorated Sputum Culture - Final NORMAL RESPIRATORY JENISE 07/10/19 09:00 Blood - Peripheral Venous Blood Culture - Final NO GROWTH AFTER 5 DAYS INCUBATION 07/10/19 09:13 Blood - Peripheral Venous Blood Culture - Final NO GROWTH AFTER 5 DAYS INCUBATION 07/08/19 23:04 Blood - Peripheral Venous Blood Culture - Final NO GROWTH AFTER 5 DAYS INCUBATION 07/08/19 23:04 Blood - Peripheral Venous Blood Culture - Final Staphylococcus Capitis 07/10/19 04:30 Urine For Antigen Detection Legionella Antigen - Final 07/10/19 04:30 Urine For Antigen Detection Streptococcus pneumoniae Antigen (M - Final 07/09/19 01:50 Urine - Urine Clean Catch Urine Culture - Final NO GROWTH OBTAINED ASSESSMENT/PLAN: 79 y/o F, pmh of HFrEF (30-35%), COPD (2L NC), a-flutter (on Eliquis 2.5mg BID) , multiple myeloma, endometrial cancer (s/p hysterectomy) presents w/ sob and productive cough is admitted for sepsis 2/2 CAP with hypotension #Acute hypoxic respiratory failure likely 2/2 to pneumonia and d-chf- symptoms have improved Keep on BiPaP overnight Decreased NC to 2 L ABG shows CO2 retaining, pt needs BiPaP #Sepsis 2/2 to CAP Abx completed #HTN Stable BP #CHF Hold- Entresto Lasix 40 daily Monitor I&Os and daily wt #A-flutter eliquis 5 mg #DVTppx eliquis FEN sodium controlled diet Dispo: monitor BP, BiPaP overnight Visit type - Emergency Visit Emergency Visit: Yes ED Registration Date: 07/08/19 Care time: The patient presented to the Emergency Department on the above date and was hospitalized for further evaluation of their emergent condition. - New Patient This patient is new to me today: Yes Date on this admission: 07/20/19 - Critical Care Critical Care patient: No - Discharge Referral Referred to [facility] Med P.C.: No ATTENDING PHYSICIAN STATEMENT I saw and evaluated the patient. I reviewed the resident's note and discussed the case with the resident. I agree with the resident's findings and plan as documented. SUBJECTIVE: OBJECTIVE: ASSESSMENT AND PLAN:
--- NOTE | 2019-07-19 18:02 | PN ---
Teaching Attending Note Name of Resident: Fco Schreiber ATTENDING PHYSICIAN STATEMENT I saw and evaluated the patient. I reviewed the resident's note and discussed the case with the resident. I agree with the resident's findings and plan as documented. SUBJECTIVE: Patient is comfortable with no acute distress, on 3 liter oxygen Vital Signs Temperature 98.5 F 07/19/19 14:00 Pulse Rate 58 L 07/19/19 14:00 Respiratory Rate 18 07/19/19 09:00 Blood Pressure 116/62 07/19/19 14:00 O2 Sat by Pulse Oximetry (%) 96 07/19/19 16:20 GENERAL: The patient is awake with no acute distress. HEAD: Normal with no signs of trauma. EYES: PERRL, extraocular movements intact, sclera anicteric, conjunctiva clear. ENT: Ears normal, oropharynx clear without exudates, moist mucous membranes. NECK: Trachea midline, full range of motion, supple. LUNGS: decreased Breath sounds BL, no wheezes, no crackles, no accessory muscle use. on 3l oxygen now HEART: Regular rate and rhythm, S1, S2 positive, 3/6 diastolic murmur at RUSB and best heard at LLSB. + JVD ABDOMEN: Soft, nontender, nondistended, normoactive bowel sounds, no guarding, no rebound, no hepatosplenomegaly, no masses. EXTREMITIES: 2+ pulses, warm, well-perfused, no edema, No erythema, NEUROLOGICAL: Cranial nerves II through XII grossly intact. Normal speech, gait not observed. PSYCH: Normal mood, normal affect. SKIN: Warm, dry, normal turgor, no rashes or lesions noted CBCD WBC 3.3 K/mm3 (4.0-10.0) L 07/19/19 06:28 RBC 2.45 M/mm3 (3.60-5.2) L 07/19/19 06:28 Hgb 8.4 GM/dL (10.7-15.3) L 07/19/19 06:28 Hct 25.8 % (32.4-45.2) L 07/19/19 06:28 MCV 105.3 fl (80-96) H 07/19/19 06:28 MCHC 32.7 g/dl (32.0-36.0) 07/19/19 06:28 RDW 17.5 % (11.6-15.6) H 07/19/19 06:28 Plt Count 182 K/MM3 (134-434) 07/19/19 06:28 MPV 8.1 fl (7.5-11.1) 07/19/19 06:28 CMP Sodium 139 mmol/L (136-145) 07/19/19 06:28 Potassium 3.6 mmol/L (3.5-5.1) 07/19/19 06:28 Chloride 92 mmol/L (98-107) L 07/19/19 06:28 Carbon Dioxide > 45 mmol/L (21-32) H 07/19/19 06:28 Anion Gap 2 MMOL/L (8-16) L 07/19/19 06:28 BUN 38.2 mg/dL (7-18) H 07/19/19 06:28 Creatinine 1.0 mg/dL (0.55-1.3) 07/19/19 06:28 Random Glucose 89 mg/dL (74-106) 07/19/19 06:28 Calcium 9.6 mg/dL (8.5-10.1) 07/19/19 06:28 Total Bilirubin 0.4 mg/dL (0.2-1) 07/19/19 06:28 AST 11 U/L (15-37) L 07/19/19 06:28 ALT 10 U/L (13-61) L 07/19/19 06:28 Alkaline Phosphatase 127 U/L (45-117) H 07/19/19 06:28 Total Protein 6.8 g/dl (6.4-8.2) 07/19/19 06:28 Albumin 2.2 g/dl (3.4-5.0) L 07/19/19 06:28 CARDIAC ENZYMES Troponin I < 0.02 ng/ml (0.00-0.05) 07/08/19 23:04 Current Medications Generic Name Dose Route Start Last Admin Trade Name Freq PRN Reason Stop Dose Admin Acetaminophen 650 mg 07/14/19 20:55 07/16/19 22:58 Tylenol - PO 650 mg Q6H PRN Administration FEVER Albuterol/Ipratropium 1 amp 07/12/19 20:00 07/19/19 14:50 Duoneb - NEB 1 amp RTID [facility] Administration Apixaban 5 mg 07/15/19 22:00 07/19/19 09:21 Eliquis - PO 5 mg BID [facility] Administration Atorvastatin Calcium 10 mg 07/12/19 22:00 07/18/19 21:52 Lipitor - PO 10 mg HS [facility] Administration Calcium Carbonate/Cholecalciferol 1 tab 07/13/19 10:00 07/19/19 09:21 Os-Khai 500+D - PO 1 tab DAILY [facility] Administration Carvedilol 6.25 mg 07/13/19 10:56 07/19/19 09:21 Coreg - PO 6.25 mg BID [facility] Administration Cholecalciferol 1,000 unit 07/13/19 10:00 07/19/19 09:21 Vitamin D3 - PO 1,000 unit DAILY [facility] Administration Cyanocobalamin 1,000 mcg 07/13/19 10:00 07/19/19 09:21 Vitamin B12 - PO 1,000 mcg DAILY [facility] Administration Furosemide 40 mg 07/15/19 12:36 07/19/19 09:52 Lasix Injection - IVPUSH 40 mg DAILY [facility] Administration Mirtazapine 15 mg 07/12/19 22:00 07/18/19 21:52 Remeron - PO Not Given HS [facility] Mirtazapine 7.5 mg 07/12/19 22:00 07/18/19 21:52 Remeron - PO Not Given HS [facility] Valacyclovir HCl 500 mg 07/13/19 10:00 07/19/19 09:21 Valtrex - PO 500 mg DAILY [facility] Administration Home Medications Medication Instructions Recorded Cyanocobalamin [Vitamin B12 -] 1,000 mcg PO DAILY 04/30/19 Metoprolol Tartrate 25 mg PO BID 04/30/19 Mirtazapine 22.5 mg PO DAILY 04/30/19 Omeprazole Magnesium [Prilosec] 20 mg PO DAILY 04/30/19 Sennosides [Senna -] 2 tab PO HS 04/30/19 Simvastatin 10 mg PO HS 04/30/19 Albuterol 2.5/Ipratropium 0.5 1 amp NEB RTID amp 05/10/19 [Duoneb -] Apixaban [Eliquis -] 2.5 mg PO BID tablet 05/10/19 Carvedilol [Coreg -] 6.25 mg PO BID tablet 05/10/19 Calcium Carbonate/Vitamin D3 [Eq 1 each PO DAILY 07/09/19 Calcium 500 + Vit D 400 Tab] Cholecalciferol (Vitamin D3) 1,000 unit PO DAILY 07/09/19 [Vitamin D3 -] Docusate Sodium [Colace] 200 mg PO DAILY 07/09/19 Docusate Sodium [Docusate 100 mg] 100 mg PO DAILY 07/09/19 Furosemide [Lasix -] 20 mg PO Q2D@1000 07/09/19 Mirtazapine 22.5 mg PO DAILY 07/09/19 Multivitamins [Tab-A-Vit -] 1 tab PO DAILY 07/09/19 Sacubitril/Valsartan [Entresto 24 1 tab PO HS 07/09/19 mg-26 mg Tablet] Salmeterol Xinafoate [Serevent 50 mcg IH BID 07/09/19 Diskus] Valacyclovir HCl [Valtrex -] 500 mg PO DAILY 07/09/19 Microbiology 07/14/19 11:00 Sputum - Expectorated Gram Stain - Final 07/14/19 11:00 Sputum - Expectorated Sputum Culture - Final NORMAL RESPIRATORY JENISE 07/10/19 09:00 Blood - Peripheral Venous Blood Culture - Final NO GROWTH AFTER 5 DAYS INCUBATION 07/10/19 09:13 Blood - Peripheral Venous Blood Culture - Final NO GROWTH AFTER 5 DAYS INCUBATION 07/08/19 23:04 Blood - Peripheral Venous Blood Culture - Final NO GROWTH AFTER 5 DAYS INCUBATION 07/08/19 23:04 Blood - Peripheral Venous Blood Culture - Final Staphylococcus Capitis 07/10/19 04:30 Urine For Antigen Detection Legionella Antigen - Final 07/10/19 04:30 Urine For Antigen Detection Streptococcus pneumoniae Antigen (M - Final 07/09/19 01:50 Urine - Urine Clean Catch Urine Culture - Final NO GROWTH OBTAINED ASSESSMENT AND PLAN: Patient is an 79yo female with Pmhx of MM, on chemo ( last 07/01), HL, A flutter on eliquis, and endometrial cancer s/p hysterectomy who presented with fever and cough with SOB. She was found to have PNA and septic shock. # Acute hypoxic hypercapneic respiratory failure: improved, on NC now, repeat ABG positive for hypercapnea, bipap at night time ordered, Bipap prn, will reduce the oxygen to 2 liter for now. # Acute diastolic heart failure improved on lasix continue, BIPAP prn, patient does not use bipap at home. pulm. on the case.continue with 2 liter oxygen # B/l CAP: s/p ceftriaxone and azithro. # s/p Septic shock resolved. off pressors now # H/o HTN: resume coreg , resume Entresto when appropriate # h/o A flutter: Cont eliquis , resume low dose coreg DVT x. Eliquis PT evaluation , possible dc to rehab in am
[2019-07-19] MEDS: ATORVASTATIN CA 10 MG TABLET (FP) PO SCH (21:29)
[2019-07-19] MEDS: MIRTAZAPINE 15 MG TABLET (FP) PO SCH ×2 (21:30)
[2019-07-20 07:16] LABS: HEMATOCRIT 23.9 % (32.4-45.2); HEMOGLOBIN 7.8 GM/dL (10.7-15.3); MCH 34.2 pg (25.7-33.7); MCHC 32.8 g/dl (32.0-36.0); MEAN CELL VOLUME 104.2 fl (80-96); MEAN PLT VOLUME 8.1 fl (7.5-11.1); PLATELET COUNT 178 K/MM3 (134-434); RBC 2.29 M/mm3 (3.60-5.2); RDW 17.2 % (11.6-15.6); WHITE BLOOD COUNT 3.2 K/mm3 (4.0-10.0)
[2019-07-20] MEDS: ALBUTEROL SO4 2.5/IPRATROPIUM 0.5 INH SOL 3 ML VIAL.NEB. NEB SCH ×3 (07:45→21:20)
[2019-07-20 07:49] LABS: ANION GAP 4 MMOL/L (8-16); CALCIUM 9.8 mg/dL (8.5-10.1); CHLORIDE 92 mmol/L (98-107); CO2 > 45 mmol/L (21-32); CREATININE 1.2 mg/dL (0.55-1.3); GLUCOSE,RANDOM 130 mg/dL (74-106); POTASSIUM 3.4 mmol/L (3.5-5.1); SODIUM 140 mmol/L (136-145)
[2019-07-20] MEDS ORDERED: POTASSIUM CHLORIDE TABS 20 MEQ TABLET.ER (FP) PO ONE (09:06)
[2019-07-20] MEDS: APIXABAN 5 MG TABLET PO SCH ×2 (09:28→22:23)
[2019-07-20] MEDS: CHOLECALCIFEROL (VIT D3) 1,000 UNIT (25 MCG) TABLET PO SCH (09:28)
[2019-07-20] MEDS: CALCIUM 500MG/VIT-D 200 UNITS COMBO TABLET (FP) PO SCH (09:28)
[2019-07-20] MEDS: CARVEDILOL 6.25 MG TABLET (FP) PO SCH ×2 (09:28→22:23)
[2019-07-20] MEDS: valACYclovir HCL 500 MG TABLET (FP) PO SCH (09:28)
[2019-07-20] MEDS: CYANOCOBALAMIN 1,000 MCG TABLET (FP) PO SCH (09:28)
[2019-07-20] MEDS: FUROSEMIDE 40 MG/4 ML INJECTABLE VIAL IVPUSH SCH (09:58)
--- NOTE | 2019-07-20 11:13 | PN ---
Progress Note, Physician History of Present Illness: pulmonary awake,confused on bipap - Current Medication List Current Medications: Active Medications Acetaminophen (Tylenol -) 650 mg PO Q6H PRN PRN Reason: FEVER Last Admin: 07/16/19 22:58 Dose: 650 mg Albuterol/Ipratropium (Duoneb -) 1 amp NEB RTID [facility] Last Admin: 07/20/19 07:45 Dose: 1 amp Apixaban (Eliquis -) 5 mg PO BID [facility] Last Admin: 07/20/19 09:28 Dose: 5 mg Atorvastatin Calcium (Lipitor -) 10 mg PO HS [facility] Last Admin: 07/19/19 21:29 Dose: 10 mg Calcium Carbonate/Cholecalciferol (Os-Khai 500+D -) 1 tab PO DAILY [facility] Last Admin: 07/20/19 09:28 Dose: 1 tab Carvedilol (Coreg -) 6.25 mg PO BID [facility] Last Admin: 07/20/19 09:28 Dose: 6.25 mg Cholecalciferol (Vitamin D3 -) 1,000 unit PO DAILY [facility] Last Admin: 07/20/19 09:28 Dose: 1,000 unit Cyanocobalamin (Vitamin B12 -) 1,000 mcg PO DAILY [facility] Last Admin: 07/20/19 09:28 Dose: 1,000 mcg Furosemide (Lasix Injection -) 40 mg IVPUSH DAILY [facility] Last Admin: 07/20/19 09:58 Dose: 40 mg Mirtazapine (Remeron -) 15 mg PO HS [facility] Last Admin: 07/19/19 21:30 Dose: Not Given Mirtazapine (Remeron -) 7.5 mg PO HS [facility] Last Admin: 07/19/19 21:30 Dose: Not Given Valacyclovir HCl (Valtrex -) 500 mg PO DAILY [facility] Last Admin: 07/20/19 09:28 Dose: 500 mg - Objective Vital Signs: Vital Signs Temperature 98.8 F 07/20/19 08:14 Pulse Rate 62 07/20/19 08:14 Respiratory Rate 20 07/20/19 08:15 Blood Pressure 122/56 L 07/20/19 08:14 O2 Sat by Pulse Oximetry (%) 98 07/20/19 08:15 Constitutional: Yes: Well Nourished, Calm Eyes: Yes: WNL HENT: Yes: WNL Neck: Yes: WNL Cardiovascular: Yes: Pulse Irregular, S1, S2 Respiratory: Yes: Diminished, On BiPap Gastrointestinal: Yes: Normal Bowel Sounds, Soft Extremities: Yes: WNL Edema: No Labs: CBC, BMP 07/20/19 06:00 07/20/19 06:00 Problem List - Problems (1) CHF (congestive heart failure) Code(s): I50.9 - HEART FAILURE, UNSPECIFIED Qualifiers: Heart failure type: unspecified Heart failure chronicity: chronic Qualified Code(s): I50.9 - Heart failure, unspecified (2) Hypotension Code(s): I95.9 - HYPOTENSION, UNSPECIFIED Qualifiers: Hypotension type: unspecified hypotension type Qualified Code(s): I95.9 - Hypotension, unspecified (3) Pneumonia Code(s): J18.9 - PNEUMONIA, UNSPECIFIED ORGANISM Qualifiers: Pneumonia type: due to unspecified organism Laterality: right Lung location: lower lobe of lung Qualified Code(s): J18.9 - Pneumonia, unspecified organism (4) Atrial flutter Code(s): I48.92 - UNSPECIFIED ATRIAL FLUTTER (5) Dyspnea Code(s): R06.00 - DYSPNEA, UNSPECIFIED Qualifiers: Dyspnea type: unspecified Qualified Code(s): R06.00 - Dyspnea, unspecified (6) Multiple myeloma Code(s): C90.00 - MULTIPLE MYELOMA NOT HAVING ACHIEVED REMISSION Qualifiers: Multiple myeloma remission status: in remission Qualified Code(s): C90.01 - Multiple myeloma in remission Assessment/Plan Assessment/Plan Septic Shock possibly due to PNA clinically improved Acute respiratory failure improved Multiple myeloma HFrEF (30-35%) HTN COPD (2L NC) HLD A-flutter (eliquis) Anemia Lasix Supplemental 02 Bronchodilators Strict I & O monitor lytes,renal function,h+h f/u abgs prn nippv as needed chest ct DR AGUSTIN
--- NOTE | 2019-07-20 13:06 | PN ---
Physical Exam: SUBJECTIVE: Patient seen and examined OBJECTIVE: Vital Signs Period Temp Pulse Resp BP Sys/Salgado Pulse Ox Last 24 Hr 98.5 F-99.5 F 53-74 20-24 97-139/55-62 95-98 GENERAL: Cooperative, conversational. NAD EYES: Pupils equal, round and reactive to light, EARS, NOSE, THROAT: oropharynx clear without exudates. Moist mucous membranes. LUNGS: crackles noted- improved HEART: Regular rate and rhythm- hx of a-flutter, normal S1 and S2 without murmur , rub or gallop. ABDOMEN: Soft, nontender, not distended, normoactive bowel sounds, no guarding, UPPER EXTREMITIES: 2+ pulses, warm, well-perfused. No cyanosis. LOWER EXTREMITIES: 2+ pulses, 1+ edema b/l. Left leg has a laceration wound- healing well NEUROLOGICAL: normal speech SKIN: Warm, dry, normal turgor Laboratory Results - last 24 hr 07/20/19 07/20/19 06:00 06:00 WBC 3.2 L RBC 2.29 L Hgb 7.8 L Hct 23.9 L MCV 104.2 H MCH 34.2 H MCHC 32.8 RDW 17.2 H Plt Count 178 MPV 8.1 Sodium 140 Potassium 3.4 L Chloride 92 L Carbon Dioxide > 45 H Anion Gap 4 L BUN 44.0 H Creatinine 1.2 Est GFR (CKD-EPI)AfAm 49.08 Est GFR (CKD-EPI)NonAf 42.35 Random Glucose 130 H Calcium 9.8 Magnesium 2.0 Active Medications Current Medications Acetaminophen (Tylenol -) 650 mg PO Q6H PRN PRN Reason: FEVER Last Admin: 07/16/19 22:58 Dose: 650 mg Albuterol/Ipratropium (Duoneb -) 1 amp NEB RTID [facility] Last Admin: 07/20/19 07:45 Dose: 1 amp Apixaban (Eliquis -) 5 mg PO BID [facility] Last Admin: 07/20/19 09:28 Dose: 5 mg Atorvastatin Calcium (Lipitor -) 10 mg PO HS [facility] Last Admin: 07/19/19 21:29 Dose: 10 mg Calcium Carbonate/Cholecalciferol (Os-Khai 500+D -) 1 tab PO DAILY [facility] Last Admin: 07/20/19 09:28 Dose: 1 tab Carvedilol (Coreg -) 6.25 mg PO BID [facility] Last Admin: 07/20/19 09:28 Dose: 6.25 mg Cholecalciferol (Vitamin D3 -) 1,000 unit PO DAILY [facility] Last Admin: 07/20/19 09:28 Dose: 1,000 unit Cyanocobalamin (Vitamin B12 -) 1,000 mcg PO DAILY [facility] Last Admin: 07/20/19 09:28 Dose: 1,000 mcg Furosemide (Lasix Injection -) 40 mg IVPUSH DAILY [facility] Last Admin: 07/20/19 09:58 Dose: 40 mg Mirtazapine (Remeron -) 15 mg PO [facility] Last Admin: 07/19/19 21:30 Dose: Not Given Mirtazapine (Remeron -) 7.5 mg PO [facility] Last Admin: 07/19/19 21:30 Dose: Not Given Valacyclovir HCl (Valtrex -) 500 mg PO DAILY [facility] Last Admin: 07/20/19 09:28 Dose: 500 mg Home Medications Medication Instructions Recorded Cyanocobalamin [Vitamin B12 -] 1,000 mcg PO DAILY 04/30/19 Metoprolol Tartrate 25 mg PO BID 04/30/19 Mirtazapine 22.5 mg PO DAILY 04/30/19 Omeprazole Magnesium [Prilosec] 20 mg PO DAILY 04/30/19 Sennosides [Senna -] 2 tab PO HS 04/30/19 Simvastatin 10 mg PO HS 04/30/19 Albuterol 2.5/Ipratropium 0.5 1 amp NEB RTID amp 05/10/19 [Duoneb -] Apixaban [Eliquis -] 2.5 mg PO BID tablet 05/10/19 Carvedilol [Coreg -] 6.25 mg PO BID tablet 05/10/19 Calcium Carbonate/Vitamin D3 [Eq 1 each PO DAILY 07/09/19 Calcium 500 + Vit D 400 Tab] Cholecalciferol (Vitamin D3) 1,000 unit PO DAILY 07/09/19 [Vitamin D3 -] Docusate Sodium [Colace] 200 mg PO DAILY 07/09/19 Docusate Sodium [Docusate 100 mg] 100 mg PO DAILY 07/09/19 Furosemide [Lasix -] 20 mg PO Q2D@1000 07/09/19 Mirtazapine 22.5 mg PO DAILY 07/09/19 Multivitamins [Tab-A-Vit -] 1 tab PO DAILY 07/09/19 Sacubitril/Valsartan [Entresto 24 1 tab PO HS 07/09/19 mg-26 mg Tablet] Salmeterol Xinafoate [Serevent 50 mcg IH BID 07/09/19 Diskus] Valacyclovir HCl [Valtrex -] 500 mg PO DAILY 07/09/19 Microbiology 07/14/19 11:00 Sputum - Expectorated Gram Stain - Final 07/14/19 11:00 Sputum - Expectorated Sputum Culture - Final NORMAL RESPIRATORY JENISE 07/10/19 09:00 Blood - Peripheral Venous Blood Culture - Final NO GROWTH AFTER 5 DAYS INCUBATION 07/10/19 09:13 Blood - Peripheral Venous Blood Culture - Final NO GROWTH AFTER 5 DAYS INCUBATION 07/08/19 23:04 Blood - Peripheral Venous Blood Culture - Final NO GROWTH AFTER 5 DAYS INCUBATION 07/08/19 23:04 Blood - Peripheral Venous Blood Culture - Final Staphylococcus Capitis 07/10/19 04:30 Urine For Antigen Detection Legionella Antigen - Final 07/10/19 04:30 Urine For Antigen Detection Streptococcus pneumoniae Antigen (M - Final 07/09/19 01:50 Urine - Urine Clean Catch Urine Culture - Final NO GROWTH OBTAINED ASSESSMENT/PLAN: 79 y/o F, pmh of HFrEF (30-35%), COPD (2L NC), a-flutter (on Eliquis 2.5mg BID) , multiple myeloma, endometrial cancer (s/p hysterectomy) presents w/ sob and productive cough is admitted for sepsis 2/2 CAP with hypotension #Acute hypoxic respiratory failure likely 2/2 to pneumonia and d-chf- symptoms have improved Keep on BiPaP overnight Decreased NC to 2 L ABG shows CO2 retaining, pt needs BiPaP CAT scan ordered to view the RLL better Spoke to Dr. [place], pt is a candidate for Trilegy device, We will ensure pt [facility] and ready before discharging pt Will f/u with Physical therapy to help pt ambulate #Hypokalemia 40 K dur #Sepsis 2/2 to CAP Abx completed #HTN Stable BP #CHF Hold- Entresto Lasix 40 daily Monitor I&Os and daily wt #A-flutter eliquis 5 mg #DVTppx eliquis FEN sodium controlled diet Dispo: monitor BP, BiPaP overnight Visit type - Emergency Visit Emergency Visit: Yes ED Registration Date: 07/08/19 Care time: The patient presented to the Emergency Department on the above date and was hospitalized for further evaluation of their emergent condition. - New Patient This patient is new to me today: Yes Date on this admission: 07/21/19 - Critical Care Critical Care patient: No - Discharge Referral Referred to [facility] Med [facility].C[facility] No ATTENDING PHYSICIAN STATEMENT I saw and evaluated the patient. I reviewed the resident's note and discussed the case with the resident. I agree with the resident's findings and plan as documented. SUBJECTIVE: OBJECTIVE: ASSESSMENT AND PLAN:
--- NOTE | 2019-07-20 14:02 | PN ---
Teaching Attending Note Name of Resident: Fco Schreiber ATTENDING PHYSICIAN STATEMENT I saw and evaluated the patient. I reviewed the resident's note and discussed the case with the resident. I agree with the resident's findings and plan as documented. SUBJECTIVE: Patient is feeling better on 2 liter oxygen Vital Signs Temperature 98.8 F 07/20/19 08:14 Pulse Rate 62 07/20/19 08:14 Respiratory Rate 20 07/20/19 08:15 Blood Pressure 122/56 L 07/20/19 08:14 O2 Sat by Pulse Oximetry (%) 98 07/20/19 08:15 GENERAL: The patient is awake with no acute distress. HEAD: Normal with no signs of trauma. EYES: PERRL, extraocular movements intact, sclera anicteric, conjunctiva clear. ENT: Ears normal, oropharynx clear without exudates, moist mucous membranes. NECK: Trachea midline, full range of motion, supple. LUNGS: decreased Breath sounds BL, no wheezes, no crackles, no accessory muscle use. on 2l oxygen now HEART: Regular rate and rhythm, S1, S2 positive, 3/6 diastolic murmur at RUSB and best heard at LLSB. ABDOMEN: Soft, NT,ND, normoactive bowel sounds, no guarding, no rebound, no hepatosplenomegaly, no masses. EXTREMITIES: 2+ pulses, warm, well-perfused, no edema, No erythema, NEUROLOGICAL: Cranial nerves II through XII grossly intact. Normal speech, gait not observed. PSYCH: Normal mood, normal affect. SKIN: Warm, dry, normal turgor, no rashes or lesions noted CBCD WBC 3.2 K/mm3 (4.0-10.0) L 07/20/19 06:00 RBC 2.29 M/mm3 (3.60-5.2) L 07/20/19 06:00 Hgb 7.8 GM/dL (10.7-15.3) L 07/20/19 06:00 Hct 23.9 % (32.4-45.2) L 07/20/19 06:00 MCV 104.2 fl (80-96) H 07/20/19 06:00 MCHC 32.8 g/dl (32.0-36.0) 07/20/19 06:00 RDW 17.2 % (11.6-15.6) H 07/20/19 06:00 Plt Count 178 K/MM3 (134-434) 07/20/19 06:00 MPV 8.1 fl (7.5-11.1) 07/20/19 06:00 CMP Sodium 140 mmol/L (136-145) 07/20/19 06:00 Potassium 3.4 mmol/L (3.5-5.1) L 07/20/19 06:00 Chloride 92 mmol/L (98-107) L 07/20/19 06:00 Carbon Dioxide > 45 mmol/L (21-32) H 07/20/19 06:00 Anion Gap 4 MMOL/L (8-16) L 07/20/19 06:00 BUN 44.0 mg/dL (7-18) H 07/20/19 06:00 Creatinine 1.2 mg/dL (0.55-1.3) 07/20/19 06:00 Random Glucose 130 mg/dL (74-106) H 07/20/19 06:00 Calcium 9.8 mg/dL (8.5-10.1) 07/20/19 06:00 Total Bilirubin 0.4 mg/dL (0.2-1) 07/19/19 06:28 AST 11 U/L (15-37) L 07/19/19 06:28 ALT 10 U/L (13-61) L 07/19/19 06:28 Alkaline Phosphatase 127 U/L (45-117) H 07/19/19 06:28 Total Protein 6.8 g/dl (6.4-8.2) 07/19/19 06:28 Albumin 2.2 g/dl (3.4-5.0) L 07/19/19 06:28 CARDIAC ENZYMES Troponin I < 0.02 ng/ml (0.00-0.05) 07/08/19 23:04 Current Medications Generic Name Dose Route Start Last Admin Trade Name Freq PRN Reason Stop Dose Admin Acetaminophen 650 mg 07/14/19 20:55 07/16/19 22:58 Tylenol - PO 650 mg Q6H PRN Administration FEVER Albuterol/Ipratropium 1 amp 07/12/19 20:00 07/20/19 07:45 Duoneb - NEB 1 amp RTID [facility] Administration Apixaban 5 mg 07/15/19 22:00 07/20/19 09:28 Eliquis - PO 5 mg BID [facility] Administration Atorvastatin Calcium 10 mg 07/12/19 22:00 07/19/19 21:29 Lipitor - PO 10 mg HS [facility] Administration Calcium Carbonate/Cholecalciferol 1 tab 07/13/19 10:00 07/20/19 09:28 Os-Khai 500+D - PO 1 tab DAILY [facility] Administration Carvedilol 6.25 mg 07/13/19 10:56 07/20/19 09:28 Coreg - PO 6.25 mg BID [facility] Administration Cholecalciferol 1,000 unit 07/13/19 10:00 07/20/19 09:28 Vitamin D3 - PO 1,000 unit DAILY [facility] Administration Cyanocobalamin 1,000 mcg 07/13/19 10:00 07/20/19 09:28 Vitamin B12 - PO 1,000 mcg DAILY [facility] Administration Furosemide 40 mg 07/15/19 12:36 07/20/19 09:58 Lasix Injection - IVPUSH 40 mg DAILY [facility] Administration Mirtazapine 15 mg 07/12/19 22:00 07/19/19 21:30 Remeron - PO Not Given HS [facility] Mirtazapine 7.5 mg 07/12/19 22:00 07/19/19 21:30 Remeron - PO Not Given HS [facility] Valacyclovir HCl 500 mg 07/13/19 10:00 07/20/19 09:28 Valtrex - PO 500 mg DAILY [facility] Administration Home Medications Medication Instructions Recorded Cyanocobalamin [Vitamin B12 -] 1,000 mcg PO DAILY 04/30/19 Metoprolol Tartrate 25 mg PO BID 04/30/19 Mirtazapine 22.5 mg PO DAILY 04/30/19 Omeprazole Magnesium [Prilosec] 20 mg PO DAILY 04/30/19 Sennosides [Senna -] 2 tab PO HS 04/30/19 Simvastatin 10 mg PO HS 04/30/19 Albuterol 2.5/Ipratropium 0.5 1 amp NEB RTID amp 05/10/19 [Duoneb -] Apixaban [Eliquis -] 2.5 mg PO BID tablet 05/10/19 Carvedilol [Coreg -] 6.25 mg PO BID tablet 05/10/19 Calcium Carbonate/Vitamin D3 [Eq 1 each PO DAILY 07/09/19 Calcium 500 + Vit D 400 Tab] Cholecalciferol (Vitamin D3) 1,000 unit PO DAILY 07/09/19 [Vitamin D3 -] Docusate Sodium [Colace] 200 mg PO DAILY 07/09/19 Docusate Sodium [Docusate 100 mg] 100 mg PO DAILY 07/09/19 Furosemide [Lasix -] 20 mg PO Q2D@1000 07/09/19 Mirtazapine 22.5 mg PO DAILY 07/09/19 Multivitamins [Tab-A-Vit -] 1 tab PO DAILY 07/09/19 Sacubitril/Valsartan [Entresto 24 1 tab PO HS 07/09/19 mg-26 mg Tablet] Salmeterol Xinafoate [Serevent 50 mcg IH BID 07/09/19 Diskus] Valacyclovir HCl [Valtrex -] 500 mg PO DAILY 07/09/19 Microbiology 07/14/19 11:00 Sputum - Expectorated Gram Stain - Final 07/14/19 11:00 Sputum - Expectorated Sputum Culture - Final NORMAL RESPIRATORY JENISE 07/10/19 09:00 Blood - Peripheral Venous Blood Culture - Final NO GROWTH AFTER 5 DAYS INCUBATION 07/10/19 09:13 Blood - Peripheral Venous Blood Culture - Final NO GROWTH AFTER 5 DAYS INCUBATION 07/08/19 23:04 Blood - Peripheral Venous Blood Culture - Final NO GROWTH AFTER 5 DAYS INCUBATION 07/08/19 23:04 Blood - Peripheral Venous Blood Culture - Final Staphylococcus Capitis 07/10/19 04:30 Urine For Antigen Detection Legionella Antigen - Final 07/10/19 04:30 Urine For Antigen Detection Streptococcus pneumoniae Antigen (M - Final 07/09/19 01:50 Urine - Urine Clean Catch Urine Culture - Final NO GROWTH OBTAINED ASSESSMENT AND PLAN: Patient is an 79yo female with Pmhx of MM, on chemo ( last 07/01), HL, A flutter on eliquis, and endometrial cancer s/p hysterectomy who presented with fever and cough with SOB. She was found to have PNA and septic shock. # Acute hypoxic hypercapneic respiratory failure: improved, on NC now, Bipap prn her Bicarb is > 45 today as well, needs to go back on Bipap, repeat ABG positive for hypercapnea, bipap at night time ordered, Bipap prn, will reduce the oxygen to 2 liter for now. Also patient will go to rehab , and will need a Trilogy machine befor being discharged from rehab, # Acute diastolic heart failure improved on lasix continue.continue with 2 liter oxygen # B/l CAP: s/p ceftriaxone and azithro. # s/p Septic shock resolved. off pressors now # H/o HTN: resume coreg , resume Entresto when appropriate # h/o A flutter: Cont eliquis , resume low dose coreg DVT x. Eliquis PT evaluation , possible dc to rehab in am possible [facility] follow cxr
[2019-07-20 14:33] VITALS: BMI 25.7
[2019-07-20] MEDS: MIRTAZAPINE 15 MG TABLET (FP) PO SCH ×2 (22:23)
[2019-07-20] MEDS: ATORVASTATIN CA 10 MG TABLET (FP) PO SCH (22:23)
[2019-07-21 06:53] LABS: HEMOGLOBIN 7.8 GM/dL (10.7-15.3); MCHC 32.4 g/dl (32.0-36.0); MEAN CELL VOLUME 105.1 fl (80-96); MEAN PLT VOLUME 8.1 fl (7.5-11.1); PLATELET COUNT 186 K/MM3 (134-434); RBC 2.28 M/mm3 (3.60-5.2); RDW 17.5 % (11.6-15.6); WHITE BLOOD COUNT 3.2 K/mm3 (4.0-10.0)
[2019-07-21 07:28] LABS: ANION GAP 2 MMOL/L (8-16); BLOOD UREA NITROGEN 46.9 mg/dL (7-18); CALCIUM 9.7 mg/dL (8.5-10.1); CHLORIDE 94 mmol/L (98-107); CO2 > 45 mmol/L (21-32); CREATININE 1.1 mg/dL (0.55-1.3); GLUCOSE,RANDOM 94 mg/dL (74-106); MAGNESIUM 2.3 mg/dL (1.8-2.4); SODIUM 141 mmol/L (136-145)
[2019-07-21] MEDS: ALBUTEROL SO4 2.5/IPRATROPIUM 0.5 INH SOL 3 ML VIAL.NEB. NEB SCH ×2 (08:00→14:00)
[2019-07-21] MEDS: FUROSEMIDE 40 MG/4 ML INJECTABLE VIAL IVPUSH SCH (09:00)
[2019-07-21] MEDS: APIXABAN 5 MG TABLET PO SCH (09:00)
[2019-07-21] MEDS: CARVEDILOL 6.25 MG TABLET (FP) PO SCH (09:00)
[2019-07-21] MEDS: valACYclovir HCL 500 MG TABLET (FP) PO SCH (09:00)
[2019-07-21] MEDS: CHOLECALCIFEROL (VIT D3) 1,000 UNIT (25 MCG) TABLET PO SCH (09:00)
[2019-07-21] MEDS: CYANOCOBALAMIN 1,000 MCG TABLET (FP) PO SCH (09:00)
[2019-07-21] MEDS: CALCIUM 500MG/VIT-D 200 UNITS COMBO TABLET (FP) PO SCH (09:00)
--- NOTE | 2019-07-21 10:51 | PN ---
Progress Note, Physician History of Present Illness: PULMONARY ALERT,OOB-CHAIR,-SOB,-CP - Current Medication List Current Medications: Active Medications Acetaminophen (Tylenol -) 650 mg PO Q6H PRN PRN Reason: FEVER Last Admin: 07/16/19 22:58 Dose: 650 mg Albuterol/Ipratropium (Duoneb -) 1 amp NEB RTID [facility] Last Admin: 07/21/19 08:00 Dose: 1 amp Apixaban (Eliquis -) 5 mg PO BID [facility] Last Admin: 07/21/19 09:00 Dose: 5 mg Atorvastatin Calcium (Lipitor -) 10 mg PO HS [facility] Last Admin: 07/20/19 22:23 Dose: 10 mg Calcium Carbonate/Cholecalciferol (Os-Khai 500+D -) 1 tab PO DAILY [facility] Last Admin: 07/21/19 09:00 Dose: 1 tab Carvedilol (Coreg -) 6.25 mg PO BID [facility] Last Admin: 07/21/19 09:00 Dose: 6.25 mg Cholecalciferol (Vitamin D3 -) 1,000 unit PO DAILY [facility] Last Admin: 07/21/19 09:00 Dose: 1,000 unit Cyanocobalamin (Vitamin B12 -) 1,000 mcg PO DAILY [facility] Last Admin: 07/21/19 09:00 Dose: 1,000 mcg Furosemide (Lasix Injection -) 40 mg IVPUSH DAILY [facility] Last Admin: 07/21/19 09:00 Dose: 40 mg Mirtazapine (Remeron -) 15 mg PO HS [facility] Last Admin: 07/20/19 22:23 Dose: Not Given Mirtazapine (Remeron -) 7.5 mg PO HS [facility] Last Admin: 07/20/19 22:23 Dose: Not Given Valacyclovir HCl (Valtrex -) 500 mg PO DAILY [facility] Last Admin: 07/21/19 09:00 Dose: 500 mg - Objective Vital Signs: Vital Signs Temperature 98.7 F 07/21/19 08:08 Pulse Rate 56 L 07/21/19 08:08 Respiratory Rate 20 07/21/19 08:20 Blood Pressure 104/57 L 07/21/19 08:08 O2 Sat by Pulse Oximetry (%) 98 07/21/19 08:20 Constitutional: Yes: Well Nourished, Calm Eyes: Yes: WNL HENT: Yes: WNL Neck: Yes: WNL Cardiovascular: Yes: Pulse Irregular, S1, S2 Respiratory: Yes: Diminished Gastrointestinal: Yes: Normal Bowel Sounds, Soft Extremities: Yes: WNL Edema: No Labs: CBC, BMP 07/21/19 06:00 07/21/19 06:00 - ....Imaging Cat Scan: Report Reviewed, Image Reviewed (MILD CONGESTION BILATERAL PLEURAL EFFUSIONS,BILATERAL LOWER LOBE ATELECTASIS R>L. LYTIC LESIONS T6-T7) Problem List - Problems (1) CHF (congestive heart failure) Code(s): I50.9 - HEART FAILURE, UNSPECIFIED Qualifiers: Heart failure type: unspecified Heart failure chronicity: chronic Qualified Code(s): I50.9 - Heart failure, unspecified (2) Hypotension Code(s): I95.9 - HYPOTENSION, UNSPECIFIED Qualifiers: Hypotension type: unspecified hypotension type Qualified Code(s): I95.9 - Hypotension, unspecified (3) Pneumonia Code(s): J18.9 - PNEUMONIA, UNSPECIFIED ORGANISM Qualifiers: Pneumonia type: due to unspecified organism Laterality: right Lung location: lower lobe of lung Qualified Code(s): J18.9 - Pneumonia, unspecified organism (4) Atrial flutter Code(s): I48.92 - UNSPECIFIED ATRIAL FLUTTER (5) Dyspnea Code(s): R06.00 - DYSPNEA, UNSPECIFIED Qualifiers: Dyspnea type: unspecified Qualified Code(s): R06.00 - Dyspnea, unspecified (6) Multiple myeloma Code(s): C90.00 - MULTIPLE MYELOMA NOT HAVING ACHIEVED REMISSION Qualifiers: Multiple myeloma remission status: in remission Qualified Code(s): C90.01 - Multiple myeloma in remission Assessment/Plan Assessment/Plan Septic Shock possibly due to PNA clinically improved Acute respiratory failure improved Multiple myeloma HFrEF (30-35%) HTN COPD (2L NC) HLD A-flutter (eliquis) Anemia Lasix Supplemental 02 Bronchodilators Strict I & O monitor lytes,renal function,h+h nippv as needed incentive spirometer home trilogy device DR AGUSTIN
[2019-07-21 14:07] VITALS: BP 107/56; PULSE 58; TEMP 98.4
--- NOTE | 2019-07-21 15:13 | PN ---
Teaching Attending Note Name of Resident: Ifrah Ramirez ATTENDING PHYSICIAN STATEMENT I saw and evaluated the patient. I reviewed the resident's note and discussed the case with the resident. I agree with the resident's findings and plan as documented. SUBJECTIVE: No fever or chills. no ANDERSON . No pain . no OSB OBJECTIVE: awake, alert, cooperative . sitting in a chair CV; RRR, 3/6 diastolic murmur at RUSB and best heard at LLSB. Lungs: CTAB Ext: edema on both legs improved. No erythema Abd: soft, NT, ND, nl BS ASSESSMENT AND PLAN: 79 y/o lady with h/o MM, o n chemo ( last 07/01), HL, A flutter on eliquis, and endometrial cancer s/p hysterectomy who presented with feevr and cough and SOB. She was found to have PNA and septic shock. 1- Acute hypoxic resp failure: due to PNA and Acute diastolic heart failure improved - cont with diuresis. will switch to po 20 mg daily ( home dose was 20 QID ) - Trilogy machine is being arranged by [facility]. to use PRN and HS 2- Septic shock resolved. 3- B/l CAP: - finished abx treatment 4- H/o HTN:cont coreg . resume Entresto at dc with prameters 5- H/o A flutter/A fib - Cont eliquis - coreg DC to Rehab. f/u with pulpat murphy, and her oNcologist and PCP
--- NOTE | 2019-07-21 18:08 | DS ---
Physical Exam: SUBJECTIVE: Patient seen and examined Pt doing much better today. Pt is responsive, communicating and states she has improved. Pt c/o of no overnight events or issues. Afebrile and asymptomatic. Pt was on NC 2L. Denies f/c/n/v/d/sob/chest pain OBJECTIVE: Vital Signs Period Temp Pulse Resp BP Sys/Salgado Pulse Ox Last 24 Hr 97.8 F-98.7 F 54-68 20-22 102-107/50-57 95-98 PHYSICAL EXAM GENERAL: Cooperative, conversational. NAD HEAD: Normal with no signs of trauma. EYES: Pupils equal, round and reactive to light, EARS, NOSE, THROAT: oropharynx clear without exudates. Moist mucous membranes. LUNGS: crackles noted- improved HEART: Regular rate and rhythm- hx of a-flutter, normal S1 and S2 without murmur , rub or gallop. ABDOMEN: Soft, nontender, not distended, normoactive bowel sounds, no guarding, UPPER EXTREMITIES: 2+ pulses, warm, well-perfused. No cyanosis. LOWER EXTREMITIES: 2+ pulses, 1+ edema b/l. Left leg has a laceration wound which was accidental as per nursing. SKIN: Warm, dry, normal turgor LABS Laboratory Results - last 24 hr CBC,CMP WBC 3.2 K/mm3 (4.0-10.0) L 07/21/19 06:00 RBC 2.28 M/mm3 (3.60-5.2) L 07/21/19 06:00 Hgb 7.8 GM/dL (10.7-15.3) L 07/21/19 06:00 Hct 24.0 % (32.4-45.2) L 07/21/19 06:00 MCV 105.1 fl (80-96) H 07/21/19 06:00 MCH 34.0 pg (25.7-33.7) H 07/21/19 06:00 MCHC 32.4 g/dl (32.0-36.0) 07/21/19 06:00 RDW 17.5 % (11.6-15.6) H 07/21/19 06:00 Plt Count 186 K/MM3 (134-434) 07/21/19 06:00 MPV 8.1 fl (7.5-11.1) 07/21/19 06:00 Absolute Neuts (auto) 2.0 K/mm3 (1.5-8.0) 07/19/19 06:28 Total Counted 100 07/08/19 23:04 Neutrophils % 62.3 % (42.8-82.8) 07/19/19 06:28 Neutrophils % (Manual) 81.0 % (42.8-82.8) 07/12/19 06:00 Band Neutrophils % 0.0 % 07/12/19 06:00 Lymphocytes % 15.0 % (8-40) D 07/19/19 06:28 Lymphocytes % (Manual) 2.0 % (8-40) L D 07/12/19 06:00 Monocytes % 17.4 % (3.8-10.2) H 07/19/19 06:28 Monocytes % (Manual) 12 % (3.8-10.2) H 07/12/19 06:00 Eosinophils % 3.4 % (0-4.5) D 07/19/19 06:28 Eosinophils % (Manual) 0.0 % (0-4.5) D 07/12/19 06:00 Basophils % 1.9 % (0-2.0) D 07/19/19 06:28 Basophils % (Manual) 0.0 % (0-2.0) 07/12/19 06:00 Myelocytes % (Man) 0 % (0-2) D 07/12/19 06:00 Promyelocytes % (Man) 0 % (0-2) 07/12/19 06:00 Blast Cells % (Manual) 0 % (0-0) 07/12/19 06:00 Nucleated RBC % 0 % (0-0) 07/19/19 06:28 Metamyelocytes 0 % (0-2) 07/12/19 06:00 Hypochromia 0 07/19/19 06:28 Platelet Estimate Normal 07/19/19 06:28 Polychromasia 0 07/19/19 06:28 Poikilocytosis 0 07/19/19 06:28 Anisocytosis 1+ 07/19/19 06:28 Macrocytosis 2+ 07/19/19 06:28 Schistocytes 1+ 07/12/19 06:00 Sodium 141 mmol/L (136-145) 07/21/19 06:00 Potassium 4.0 mmol/L (3.5-5.1) 07/21/19 06:00 Chloride 94 mmol/L (98-107) L 07/21/19 06:00 Carbon Dioxide > 45 mmol/L (21-32) H 07/21/19 06:00 Anion Gap 2 MMOL/L (8-16) L 07/21/19 06:00 BUN 46.9 mg/dL (7-18) H 07/21/19 06:00 Creatinine 1.1 mg/dL (0.55-1.3) 07/21/19 06:00 Est GFR (CKD-EPI)AfAm 54.53 07/21/19 06:00 Est GFR (CKD-EPI)NonAf 47.05 07/21/19 06:00 Random Glucose 94 mg/dL (74-106) 07/21/19 06:00 Lactic Acid 0.8 mmol/L (0.4-2.0) 07/08/19 23:04 Calcium 9.7 mg/dL (8.5-10.1) 07/21/19 06:00 Phosphorus 3.6 mg/dL (2.5-4.9) 07/19/19 06:28 Magnesium 2.3 mg/dL (1.8-2.4) 07/21/19 06:00 Iron 70 ug/dL (50-175) 07/16/19 06:20 TIBC 216 ug/dL (250-450) L 07/16/19 06:20 Iron Saturation 32 % (17.5-39) 07/16/19 06:20 Unsaturated IBC 146 ug/dL (200-275) L 07/16/19 06:20 Ferritin 225.0 ng/ml (8-388) 07/16/19 06:20 Total Bilirubin 0.4 mg/dL (0.2-1) 07/19/19 06:28 AST 11 U/L (15-37) L 07/19/19 06:28 ALT 10 U/L (13-61) L 07/19/19 06:28 Alkaline Phosphatase 127 U/L (45-117) H 07/19/19 06:28 Troponin I < 0.02 ng/ml (0.00-0.05) 07/08/19 23:04 B-Natriuretic Peptide 3737.4 pg/ml (5-450) H 07/08/19 23:04 Total Protein 6.8 g/dl (6.4-8.2) 07/19/19 06:28 Albumin 2.2 g/dl (3.4-5.0) L 07/19/19 06:28 Home Medications Medication Instructions Recorded Cyanocobalamin [Vitamin B12 -] 1,000 mcg PO DAILY 04/30/19 Omeprazole Magnesium [Prilosec] 20 mg PO DAILY 04/30/19 Simvastatin 10 mg PO HS 04/30/19 Albuterol 2.5/Ipratropium 0.5 1 amp NEB RTID amp 05/10/19 [Duoneb -] Carvedilol [Coreg -] 6.25 mg PO BID tablet 05/10/19 Calcium Carbonate/Vitamin D3 [Eq 1 each PO DAILY 07/09/19 Calcium 500-Vit D3 400 Tab] Cholecalciferol (Vitamin D3) 1,000 unit PO DAILY 07/09/19 [Vitamin D3 -] Docusate Sodium [Colace] 200 mg PO DAILY 07/09/19 Mirtazapine 22.5 mg PO DAILY 07/09/19 Multivitamins [Multivit ([facility] 1 tab PO DAILY 07/09/19 Formulary)] Sacubitril/Valsartan [Entresto 24 1 tab PO HS 07/09/19 mg-26 mg Tablet] Valacyclovir HCl [Valtrex -] 500 mg PO DAILY 07/09/19 Apixaban [Eliquis -] 5 mg PO BID #60 tablet 07/21/19 Furosemide [Lasix -] 20 mg PO DAILY #30 tablet 07/21/19 Microbiology 07/14/19 11:00 Sputum - Expectorated Gram Stain - Final 07/14/19 11:00 Sputum - Expectorated Sputum Culture - Final NORMAL RESPIRATORY JENISE 07/10/19 09:00 Blood - Peripheral Venous Blood Culture - Final NO GROWTH AFTER 5 DAYS INCUBATION 07/10/19 09:13 Blood - Peripheral Venous Blood Culture - Final NO GROWTH AFTER 5 DAYS INCUBATION 07/08/19 23:04 Blood - Peripheral Venous Blood Culture - Final NO GROWTH AFTER 5 DAYS INCUBATION 07/08/19 23:04 Blood - Peripheral Venous Blood Culture - Final Staphylococcus Capitis 07/10/19 04:30 Urine For Antigen Detection Legionella Antigen - Final 07/10/19 04:30 Urine For Antigen Detection Streptococcus pneumoniae Antigen (M - Final 07/09/19 01:50 Urine - Urine Clean Catch Urine Culture - Final NO GROWTH OBTAINED HOSPITAL COURSE: Date of Admission:07/08/19 79 y/o F, pmh of HFrEF (30-35%), COPD (2L NC), a-flutter (on Eliquis 2.5mg BID) , multiple myeloma, endometrial cancer (s/p hysterectomy) presents w/ sob and productive cough is admitted for sepsis 2/2 CAP with hypotension. Pt was admitted for septic shock to the ICU and started on abx-ceftriaxone and azithromycin, levophed and BiPAP. After her mental status stabilized, she was monitored and treated on med-surg. She had several episodes of altered mental status from CO2 retention whenever she was off BiPAP. After several bouts of breathing treatments with nebs, steroids and BiPAP she improved. However, she will still need respiratory support outside of the hospital. Dr Toledo was consulted and we set pt up with a Trilogy machine to be used at night and PRN [facility]. She was discharged on to snf. ECHO- EF normal, AR present-mild Sputum Cx- many gram + cocci in clusters, moderate gram+ cocci in pairs, moderate gram negative bacilli, few polmorpho WBC ABG shows CO2 retaining CAT scan: RLL atelectasis, b/l pleural effusion, lytic lesions of the spine Patient puts chemo treatment for multiple myeloma on hold whenever she attends rehab. #Acute hypoxic respiratory failure likely 2/2 to pneumonia and d-chf- symptoms have improved Keep on BiPaP overnight Decreased NC to 2 L ABG shows CO2 retaining, pt needs BiPaP CAT scan ordered to view the RLL better Spoke to Dr. Toledo, pt is a candidate for Trilegy device, We will ensure pt has device at [facility] prepped and ready before discharging pt Will f/u with Physical therapy to help pt ambulate Date of Discharge: 07/21/19 Minutes to complete discharge: 35 Discharge Summary Problems reviewed: Yes Reason For Visit: CONGESTIVE HEART FAILURE, HYPOTENSION, PNEUMONIA Condition: Improved - Instructions Diet, Activity, Other Instructions: You were admitted to the hospital for difficulty breathing and shortness of breath While you were in the hospital, we evaluated you with blood work, lab work, imaging including x rays and CAT scans of your chest, found to have pnuemonia. We treated you with medications including antibiotics and breathing treatments with nebulizers and BiPaP machines, all of which helped improve your symptoms significantly. We will be arranging a Trilogy machine at your [facility] for you to use Please use your Trilogy machine every night while sleeping in addition; please use the machine when needed if feeling drowsy or lethargic. We made some changes to your medications: We increased your Eliquis from 2.5 to 5 mg to be taken twice a day We increased your Lasix to 20mg to be taken daily Hold Entresto if systolic BP < 100 or Diastolic BP < 60 Please follow up with your primary care physician in 1 week; will need CBC and BMP in 1 week Please follow up with your [facility] chemist, Dr Toledo in 1 week. please follow up with your own service control operator in 2 weeks follow up with your own oncologist in 2-3 weeks Return to the emergency room, if you experience any worsening of your condition , chest pain, shortness of breath, nausea, vomiting or any other symptoms. Referrals: Mark Toledo MD [Staff Physician] - Elmer Bravo [Non Staff, Medical] - Xin Mayfield MD [Staff Physician] - Disposition: [facility] - Home Medications Comprehensive Discharge Medication List: Ambulatory Orders Cyanocobalamin [Vitamin B12 -] 1,000 mcg PO DAILY 04/30/19 Omeprazole Magnesium [Prilosec] 20 mg PO DAILY 04/30/19 Simvastatin 10 mg PO HS 04/30/19 Albuterol 2.5/Ipratropium 0.5 [Duoneb -] 1 amp NEB RTID amp 05/10/19 Carvedilol [Coreg -] 6.25 mg PO BID tablet 05/10/19 Calcium Carbonate/Vitamin D3 [Eq Calcium 500-Vit D3 400 Tab] 1 each PO DAILY Cholecalciferol (Vitamin D3) [Vitamin D3 -] 1,000 unit PO DAILY 07/09/19 Docusate Sodium [Colace] 200 mg PO DAILY 07/09/19 Mirtazapine 22.5 mg PO DAILY 07/09/19 Multivitamins [Multivit ([facility] Formulary)] 1 tab PO DAILY 07/09/19 Sacubitril/Valsartan [Entresto 24 mg-26 mg Tablet] 1 tab PO HS 07/09/19 Valacyclovir HCl [Valtrex -] 500 mg PO DAILY 07/09/19 Apixaban [Eliquis -] 5 mg PO BID #60 tablet 07/21/19 Furosemide [Lasix -] 20 mg PO DAILY #30 tablet 07/21/19 This patient is new to me today: Yes Date on this admission: 07/21/19 Emergency Visit: Yes ED Registration Date: 07/08/19 Care time: The patient presented to the Emergency Department on the above date and was hospitalized for further evaluation of their emergent condition. Critical Care patient: No - Discharge Referral Referred to [facility] Med P.C.: No ATTENDING PHYSICIAN STATEMENT I saw and evaluated the patient. I reviewed the resident's note and discussed the case with the resident. I agree with the resident's findings and plan as documented. SUBJECTIVE: OBJECTIVE: ASSESSMENT AND PLAN:
== END 2019-07-21 17:41 | DRG 871 ==
LOC: JER 21:35 → JERBED 23:22 → JICU 07-09 03:57 → J4W 07-12 18:21
PROVIDERS: ADMIT Internal Medicine; ATTEND Internal Medicine
PROC: 06HY33Z Insertion of Infusion Device into Lower Vein, Percutaneous Approach (ICD-10-PCS; principal; 2019-07-09)
DX: A41.1 Sepsis due to other specified staphylococcus (principal); J96.01 Acute respiratory failure with hypoxia; R65.21 Severe sepsis with septic shock; J96.02 Acute respiratory failure with hypercapnia; I50.23 Acute on chronic systolic (congestive) heart failure; J18.9 Pneumonia, unspecified organism; I48.92 Unspecified atrial flutter; C90.00 Multiple myeloma not having achieved remission; D61.818 Other pancytopenia; N17.9 Acute kidney failure, unspecified; J98.11 Atelectasis; I13.0 Hypertensive heart and chronic kidney disease with heart failure and stage 1 through stage 4 chronic kidney disease, or unspecified chronic kidney disease; J90 Pleural effusion, not elsewhere classified; G95.9 Disease of spinal cord, unspecified; E88.09 Other disorders of plasma-protein metabolism, not elsewhere classified; N18.9 Chronic kidney disease, unspecified; J44.9 Chronic obstructive pulmonary disease, unspecified; E78.5 Hyperlipidemia, unspecified; I10 Essential (primary) hypertension; D64.9 Anemia, unspecified; D69.6 Thrombocytopenia, unspecified; F41.8 Other specified anxiety disorders; R94.5 Abnormal results of liver function studies; Z66 Do not resuscitate; Z85.42 Personal history of malignant neoplasm of other parts of uterus
CPT/HCPCS: 36415; 36600; 71045-TC-FY; 71250-TC; 76705-TC; 80048; 80053; 81003; 82272; 82728; 82803; 83540; 83550; 83605; 83735; 83880; 84100; 84484; 85025; 85027; 87040; 87070; 87086; 87186; 87205; 87899; 93005; 93010; 93306-TC; 94640; 94660; 97116-GP; 97161-GP; 99285-25; J0282; J7030